=== PATIENT | female | born 1935 | race Caucasian/White ===

== ENCOUNTER 2017-12-09 10:48 | Inpatient (IN) | payer OTHER ==
[2017-12-09 10:55] VITALS: BMI 23.6
[2017-12-09] MEDS ORDERED: SODIUM CHLORIDE 1,000 ML IV ONE (10:59)
[2017-12-09] MEDS ORDERED: VANCOMYCIN 1,000 MG in DEXTROSE 5%-WATER - 250 ML IVPB ONE (11:19)
[2017-12-09] MEDS ORDERED: ALBUTEROL SO4 2.5/IPRATROPIUM 0.5 INH SOL 3 ML VIAL.NEB. NEB ONE ×2 (11:19→11:42)
--- NOTE | 2017-12-09 11:29 | PDOC ---
History of Present Illness - General History Source: Patient, Significant Other Exam Limitations: No Limitations - History of Present Illness Initial Comments: 12/09/17 11:34 The patient is a 82 year old female, with a significant past medical history of lung cancer (in remission for 1 year, s/p chemotherapy, resection), COPD ( oxygen dependent 4 LPM at home), hypertension, hyperlipidemia, hypothyroidism, who presents to the emergency department with, approx. 2 days of productive cough with yellow sputum and measured fever (102 F). As per the patients , the patient began having a productive cough on Saturday and a measured temperature of 102 F. He reports he took the patient to see her PCP Dr. Murguia earlier today who advised the patient to come to the ED for evaluation. She reports her last hospitalization was approx. one year ago for pneumonia. She states she did receive her flu shot this year. She denies recent headache or dizziness. She denies recent nausea, vomit, diarrhea or constipation. She denies recent dysuria, frequency, urgency or hematuria. She denies recent chest pain. Allergies: levofloxacin, penicillins Primary Care Physician: Dr. Murguia Oncology: Dr. Frias Business Office Coordinator: Dr. Curry <Suhail lBoom - Last Filed: 12/09/17 11:42> <Nixon Hall - Last Filed: 12/09/17 13:27> - General Chief Complaint: Shortness of Breath Stated Complaint: PCP SENT FOR ADMIN Time Seen by Provider: 12/09/17 10:57 Past History <Suhail Bloom - Last Filed: 12/09/17 11:42> - Past Medical History Anemia: No Asthma: No Cancer: Yes (LUNG.) Cardiac Disorders: No CVA: No COPD: Yes CHF: No Dementia: No Diabetes: No GI Disorders: No Disorders: No HTN: No Hypercholesterolemia: No Liver Disease: No Seizures: No Thyroid Disease: Yes (HYPO) - Surgical History Abdominal Surgery: No Appendectomy: No Cardiac Surgery: No Cholecystectomy: No Lung Surgery: Yes (20% RT LUNG REMOVED.) Neurologic Surgery: No Orthopedic Surgery: Yes (rotator cuff left) - Immunization History Immunization Up to Date: Yes - Suicide/Smoking/Psychosocial Hx Smoking History: Former smoker Have you smoked in the past 12 months: No Number of Cigarettes Smoked Daily: 0 If you are a former smoker, when did you quit?: 35 YRS AGO Cigars Per Day: 0 Information on smoking cessation initiated: No Hx Alcohol Use: No Drug/Substance Use Hx: No Substance Use Type: None Hx Substance Use Treatment: No <Nixon Hall - Last Filed: 12/09/17 13:27> - Past Medical History Allergies/Adverse Reactions: Allergies Allergy/AdvReac Type Severity Reaction Status Date / Time levofloxacin [From Levaquin] Allergy Mild Itching Verified 12/09/17 10:50 Penicillins Allergy Mild Hives Verified 12/09/17 10:50 Home Medications: Ambulatory Orders Levothyroxine [Synthroid -] 125 mcg PO DAILY 10/25/15 Acetaminophen [Tylenol .Regular Strength -] 650 mg PO Q6H PRN #0 tablet Albuterol 0.083% Nebulizer Yaima [Ventolin 0.083% Nebulizer Soln -] 1 amp NEB Q4H PRN #0 amp 07/06/16 Cholecalciferol (Vitamin D3) [Vitamin D3 -] 50,000 unit PO DAILY 12/09/17 Diazepam 2 mg PO TID PRN 12/09/17 Fluticasone/Salmeterol [Advair Hfa 115-21 Mcg Inhaler] 1 inh PO BID 12/09/17 Review of Systems - Review of Systems Constitutional: Yes: Chills, Fever Respiratory: Yes: Cough, Shortness of Breath Cardiac (ROS): No: Chest Pain ABD/GI: No: Diarrhea, Vomiting All Other Systems: Reviewed and Negative <Nixon Hall - Last Filed: 12/09/17 13:27> *Physical Exam - Vital Signs Last Vital Signs Temp Pulse Resp BP Pulse Ox 86 28 H 93/46 96 12/09/17 10:52 12/09/17 10:52 12/09/17 10:52 12/09/17 10:52 - Physical Exam Comments: 12/09/17 11:39 GENERAL: Well appearing. The patient is awake, alert, and fully oriented, in no acute distress. HEAD: Normal with no signs of trauma. EYES: Pupils equal, round and reactive to light, extraocular movements intact, sclera anicteric, conjunctiva clear with no pallor. ENT: Ears normal, nares patent, oropharynx clear without exudates. Moist mucous membranes. NECK: Normal range of motion, supple without lymphadenopathy, JVD, or masses. LUNGS: +Decreased breath sounds right side. +Difficult to auscultate right lung field. Good air entry. No clear wheezes. Patient is able to speak in full sentences. HEART: Regular rate and rhythm, normal S1 and S2 without murmur or rub. ABDOMEN: Soft/nontender/nondistended. BS wnl. No guarding or rebound. No palpable masses. No hepatosplenomegaly. EXTREMITIES: Normal range of motion, no edema. No clubbing or cyanosis. No cords, erythema, or tenderness. NEUROLOGICAL: Cranial nerves II through XII grossly intact. Normal speech. PSYCH: Normal mood, normal affect. SKIN: Warm, Dry, normal turgor, no rashes or lesions noted. <Suhail Bloom - Last Filed: 12/09/17 11:42> - Vital Signs Last Vital Signs Temp Pulse Resp BP Pulse Ox 86 28 H 93/46 96 12/09/17 10:52 12/09/17 10:52 12/09/17 10:52 12/09/17 10:52 <Nixon Hall - Last Filed: 12/09/17 13:27> Heart Score/ECG Review #1 ECG reviewed & interpreted by me at: 11:18 General ECG Interpretation: Sinus Rhythm (? ectopic atrial focus with PAC), Normal Rate (79), Normal Intervals (QTC 449), No acute ischemic changes <Nixon Hall - Last Filed: 12/09/17 13:27> ED Treatment Course - LABORATORY CBC & Chemistry Diagram: 12/09/17 10:58 12/09/17 10:58 <Suhail Bloom - Last Filed: 12/09/17 11:42> - LABORATORY CBC & Chemistry Diagram: 12/09/17 10:58 12/09/17 10:58 - RADIOLOGY Radiology Studies Ordered: Category Date Time Status CHEST X-RAY PORTABLE* [RAD] Stat Radiology 12/09/17 10:58 Ordered <Nixon Hall - Last Filed: 12/09/17 13:27> Medical Decision Making - Critical Care Time Total Critical Care Time (minutes): 30 Critical Care Statement: The care of this patient involved high complexity decision making to prevent further life threatening deterioration of the patient 's condition and/or to evaluate & treat vital organ system(s) failure or risk of failure. - Medical Decision Making 12/09/17 11:25 A portion of this note was documented by scribe services under my direction. I have reviewed the details of the note, within reason, and agree with the documentation with the following case summary and management plan written by me. 82-year-old female with history of lung CA that is post resection/chemotherapy, now in remission 1 year, COPD on 4 L home oxygen presents from Dr. lacho Hemphill's office with 2 days of worsening cough productive of yellow sputum, and fever of 102. Tachypnea, O2 sat at baseline on 3 L Decreased breath sounds on the right, otherwise good air entry Generally well-appearing and speaking full sentences 82-year-old female with fever/cough, history of COPD and lung CA. Presentation suspicious for pneumonia, possible influenza, possible superimposed COPD exacerbation. Sepsis protocol initiated Supplemental oxygen, DuoNeb's IV fluids, IV antibiotics Admission, Dr. Curry, her milk delivery driver, consulted. 12/09/17 12:45 wbc 10.6, Cr 1.2, lactate 1.7, trop negative. feels slightly better after nebs, received abx. CXR pending, will proceed with admission to Dr. Murguia. 12/09/17 13:[address] curry at bedside, will add steroids and proceed with admission. <Nixon Hall - Last Filed: 12/09/17 13:27> *DC/Admit/Observation/Transfer - Attestations Scribe Attestion: 12/09/17 11:39 Documentation prepared by Suhail Bloom, acting as medical imaging technician for Nixon Hall MD. <Suhail Bloom - Last Filed: 12/09/17 11:42> - Discharge Dispostion Admit: Yes <Nixon Hall - Last Filed: 12/09/17 13:27> Diagnosis at time of Disposition: COPD (chronic obstructive pulmonary disease) Qualifiers: COPD type: COPD with acute lower respiratory infection Qualified Code(s): J44.0 - Chronic obstructive pulmonary disease with acute lower respiratory infection Fever Qualifiers: Fever type: unspecified Qualified Code(s): R50.9 - Fever, unspecified - Discharge Dispostion Condition at time of disposition: Fair
[2017-12-09] MEDS: AZTREONAM 2 GM in DEXTROSE 5%-WATER - 50 ML IVPB ONE ×2 (11:40→12:01)
[2017-12-09] MEDS ORDERED: VANCOMYCIN 1 GRAM (PRE-DOCKED) 1,000 MG/250 ML BAG IVPB ONE (11:42)
[2017-12-09] MEDS ORDERED: AZTREONAM 2 GM in DEXTROSE 5%-WATER - 100 ML IVPB ONE (11:45)
[2017-12-09 11:49] LABS: BASO % 0.4 % (0-2.0); EOS % 1.1 % (0-4.5); HEMOGLOBIN 12.1 GM/dL (10.7-15.3); LYMPH % 14.4 % (8-40); MCH 28.2 pg (25.7-33.7); MCHC 32.7 g/dl (32.0-36.0); MEAN CELL VOLUME 86.2 fl (80-96); MEAN PLT VOLUME 7.9 fl (7.5-11.1); MONO % 9.1 % (3.8-10.2); PLATELET COUNT 223 K/MM3 (134-434); RBC 4.29 M/mm3 (3.60-5.2); RDW 15.2 % (11.6-15.6); WHITE BLOOD COUNT 10.6 K/mm3 (4.0-10.0)
[2017-12-09 11:50] LABS: VENOUS PC02 48.2 mmHg (38-52); VENOUS PH 7.35 (7.32-7.42)
[2017-12-09 11:51] LABS: VENOUS PO2 36.4 mmHg (28-48)
[2017-12-09 12:10] LABS: ALBUMIN 3.7 g/dl (3.4-5.0); ANION GAP 14 (8-16); BILIRUBIN,TOTAL 0.3 mg/dL (0.2-1.0); BLOOD UREA NITROGEN 31 mg/dL (7-18); CALCIUM 9.5 mg/dL (8.5-10.1); CHLORIDE 102 mmol/L (98-107); CO2 24 mmol/L (21-32); CREATININE 1.2 mg/dL (0.55-1.02); GLUCOSE,RANDOM 99 mg/dL (74-106); POTASSIUM 4.1 mmol/L (3.5-5.1); SGOT/AST 14 U/L (15-37); SGPT/ALT 19 U/L (12-78); SODIUM 140 mmol/L (136-145); TOT PROT 7.8 g/dl (6.4-8.2)
[2017-12-09 12:13] LABS: ALK PHOS 106 U/L (45-117)
[2017-12-09] MEDS ORDERED: methylPREDNISolone NA SUCC 125 MG/2 ML VIAL IVPB ONE (13:27)
--- NOTE | 2017-12-09 13:35 | PN ---
Progress Note (short form) - Note Progress Note: PULMONARY CONSULTATION DICTATED 12/09/17 IMP FEVER ? INFLUENZA,? PNEUMONIA COPD EXACERBATION CHRONIC HYPOXEMIC RESPIRATORY FAILURE H/O LUNG CA S/P RESECTION,CHEMO HTN HLD HYPOTHYROID TALIB PLAN IV ABX INHALED BRONCHODILATORS SHORT COURSE OF STEROIDS O2 CULTURES F/U CHEST X-RAYS MONITOR LYTES,RENAL FUNCTION DR MCGUIRE Problem List - Problems (1) COPD (chronic obstructive pulmonary disease) Code(s): J44.9 - CHRONIC OBSTRUCTIVE PULMONARY DISEASE, UNSPECIFIED Qualifiers: COPD type: COPD with acute lower respiratory infection Qualified Code(s): J44.0 - Chronic obstructive pulmonary disease with acute lower respiratory infection (2) Fever Code(s): R50.9 - FEVER, UNSPECIFIED Qualifiers: Fever type: unspecified Qualified Code(s): R50.9 - Fever, unspecified (3) COPD exacerbation Code(s): J44.1 - CHRONIC OBSTRUCTIVE PULMONARY DISEASE W (ACUTE) EXACERBATION (4) Lung cancer Code(s): C34.90 - MALIGNANT NEOPLASM OF UNSP PART OF UNSP BRONCHUS OR LUNG (5) Acute kidney injury Code(s): N17.9 - ACUTE KIDNEY FAILURE, UNSPECIFIED (6) Chronic hypoxemic respiratory failure Code(s): J96.11 - CHRONIC RESPIRATORY FAILURE WITH HYPOXIA
[2017-12-09 14:31] LABS: INR 1.09 (0.82-1.09); PROTHROMBIN TIME (PATIENT) 12.3 SEC (9.98-11.88)
[2017-12-09 14:34] LABS: ACTIVATED PTT 28.7 SECONDS (26.9-34.4)
[2017-12-09] MEDS ORDERED: ACETAMINOPHEN 325 MG TABLET (FP) PO PRN ×2 (17:12→17:21)
[2017-12-09] MEDS ORDERED: ALBUTEROL SO4 2.5/IPRATROPIUM 0.5 INH SOL 3 ML VIAL.NEB. NEB PRN (17:12)
[2017-12-09] MEDS ORDERED: diazePAM 2 MG TABLET PO PRN (17:12)
--- NOTE | 2017-12-09 19:14 | CONS ---
PULMONARY CONSULTATION DATE OF CONSULTATION: 12/09/2017 REFERRING PHYSICIAN: Axel Murguia MD HISTORY OF PRESENT ILLNESS: The patient is an 82-year-old white female known to me in previous hospitalization with past medical history of advanced COPD; chronic hypoxemic respiratory failure maintained on O2 of 4 L; history of lung CA status post resection, status post chemotherapy, currently in remission for approximately 1 year; hyperlipidemia; hypothyroidism; hypertension; admitted to [facility] with complaint of 2-day history of increasing shortness of breath, productive cough of yellow sputum, and fever to 102. Patient denied any complaints of chest pain, nausea, vomiting, or diaphoresis. According to the patient and the , patient started developing the symptoms 2 days ago, but she refused to go to the emergency room. Past couple of days, started with increasing shortness of breath, dyspnea with exertion. At which time, she went to Dr. Murguia and advised to go to the emergency room. She denies hemoptysis, denies any chest pains or palpitations, denies any recent travel. There is no history of occupational exposure to chemicals or fumes. She has a history of smoking, quit greater than 30 years ago. PAST MEDICAL HISTORY: Again includes lung CA status post resection, status post chemotherapy; COPD, advanced, with chronic hypoxemic respiratory failure on 4 L nasal cannula; hypertension; hyperlipidemia; hypothyroidism. REVIEW OF SYSTEMS: Positive shortness of breath. Positive cough. No chest pain. No palpitations. Positive fever. No hemoptysis. No abdominal pain. CURRENT MEDICATIONS: Include Solu-Medrol. PHYSICAL EXAMINATION: General: The patient is an elderly white female, well developed, well nourished, awake, alert, mildly dyspneic but in no acute respiratory distress. Vital Signs: She is currently afebrile. Blood pressure 144/96, respiratory rate is 16, O2 saturation is 95% on 3 L. HEENT: Normocephalic, atraumatic. Neck: Supple. Heart: Regular. S1, S2. Chest: A few scattered bilateral wheezes. Abdomen: Soft. Bowel sounds are positive. Extremities: No signs of edema. LABORATORY DATA: WBC is 10.6, hemoglobin 12.1, hematocrit 37, platelet count of 223,000. INR is 1.12. Venous blood gas showed pH of 7.35, pCO2 of 48, a pO2 of 36, a bicarbonate of 26. Chemistries: BUN is 31, creatinine 1.2. Chest x-ray reveals no acute infiltrates and/or effusions. IMPRESSION: 1. Acute exacerbation of chronic obstructive pulmonary disease. 2. Fever and chills, possible viral, possible influenza, possible bacterial pneumonia although not evident on chest x-ray. 3. History of lung cancer status post resection, status post chemotherapy. 4. Hypertension. 5. Hyperlipidemia. PLAN: Inhaled bronchodilators, IV antibiotics, supplemental O2, a short course of steroids. Obtain cultures, sputum C&S, blood C&S. Liliana [id number]
--- NOTE | 2017-12-09 19:55 | CONSULT ---
Consult - text type - Consultation Consultation Note: The patient is a 82 year old female, with a significant past medical history of lung cancer (in remission for 1 year, s/p chemotherapy, resection), COPD ( oxygen dependent 4 LPM at home), hypertension, hyperlipidemia, hypothyroidism, who presents to the emergency department with, approx. 2 days of productive cough with yellow sputum and measured fever (102 F). As per the patients , the patient began having a productive cough on Saturday and a measured temperature of 102 F. He reports he took the patient to see her PCP Dr. Murguia earlier today who advised the patient to come to the ED for evaluation. She denies recent headache or dizziness. She denies recent nausea, vomit, diarrhea or constipation. She denies recent dysuria, frequency, urgency or hematuria. She denies recent chest pain. Allergies: levofloxacin, penicillins - Past Medical History Cancer: Yes (LUNG.) COPD: Yes Thyroid Disease: Yes (HYPO) - Surgical History Orthopedic Surgery: Yes (rotator cuff left) - Suicide/Smoking/Psychosocial Hx Smoking History: Former smoker Allergies/Adverse Reactions: Allergies Allergy/AdvReac Type Severity Reaction Status Date / Time levofloxacin [From Levaquin] Allergy Mild Itching Verified 12/09/17 10:50 Penicillins Allergy Mild Hives Verified 12/09/17 10:50 Home Medications: Ambulatory Orders Levothyroxine [Synthroid -] 125 mcg PO DAILY 10/25/15 Acetaminophen [Tylenol .Regular Strength -] 650 mg PO Q6H PRN #0 tablet Albuterol 0.083% Nebulizer Yaima [Ventolin 0.083% Nebulizer Soln -] 1 amp NEB Q4H PRN #0 amp 07/06/16 Cholecalciferol (Vitamin D3) [Vitamin D3 -] 50,000 unit PO DAILY 12/09/17 Diazepam 2 mg PO TID PRN 12/09/17 Fluticasone/Salmeterol [Advair Hfa 115-21 Mcg Inhaler] 1 inh PO BID 12/09/17 *Physical Exam - Vital Signs Last Vital Signs Temp Pulse Resp BP Pulse Ox 86 28 H 93/46 96 12/09/17 10:52 12/09/17 10:52 12/09/17 10:52 12/09/17 10:52 Cor: RSR, No murmurs, No gallops Lungs: Clear to P&A Abd: Soft, Normal bowel sounds, No organomegaly Ext:No significant edema Abnormal Lab Results 12/09/17 12/09/17 12/09/17 10:58 10:58 10:58 WBC 10.6 H PT with INR 12.30 H Mixed VBG HCO3 26.0 H BUN Creatinine AST 12/09/17 10:58 WBC PT with INR Mixed VBG HCO3 BUN 31 H Creatinine 1.2 H AST 14 L A/P 82-year-old female with history of lung CA that is post resection/chemotherapy, now in remission 1 year, COPD on 4 L home oxygen presents from PMDs office with 2 days of worsening cough productive of yellow sputum, and fever of 102. s/p vanco/aztreonam/medrol f/u ID /pulmonary consult f/u cultures robitussin prn will arrange port flush/cultures
[2017-12-09] MEDS: FLUTICASONE/SALMETEROL 100 MCG/50 MCG DISKUS IH SCH (22:20)
[2017-12-09] MEDS: guaiFENesin 200 MG/10 ML 10 ML UNIT-DOSE CUPS PO PRN (22:22)
[2017-12-09] MEDS: INSULIN SLIDING SCALE (NOVOLOG) 1 VIAL SQ SCH (22:22)
[2017-12-09] MEDS: NYSTATIN/TRIAMCINOLONE TOPICAL CREAM 15 GM TUBE TP SCH (22:22)
[2017-12-10] MEDS: INSULIN SLIDING SCALE (NOVOLOG) 1 VIAL SQ SCH ×4 (06:04→22:09)
[2017-12-10] MEDS: LEVOTHYROXINE NA 125 MCG TABLET (FP) PO SCH (06:04)
[2017-12-10 08:45] LABS: ALBUMIN 3.2 g/dl (3.4-5.0); ANION GAP 12 (8-16); BLOOD UREA NITROGEN 32 mg/dL (7-18); CALCIUM 9.2 mg/dL (8.5-10.1); CHLORIDE 105 mmol/L (98-107); CO2 24 mmol/L (21-32); GLUCOSE,RANDOM 115 mg/dL (74-106); POTASSIUM 4.2 mmol/L (3.5-5.1); SODIUM 141 mmol/L (136-145)
[2017-12-10 08:48] LABS: ALK PHOS 96 U/L (45-117); BILIRUBIN,TOTAL 0.2 mg/dL (0.2-1.0); CREATININE 0.7 mg/dL (0.55-1.02); SGOT/AST 15 U/L (15-37); SGPT/ALT 13 U/L (12-78); TOT PROT 7.1 g/dl (6.4-8.2)
[2017-12-10 08:52] LABS: HEMOGLOBIN 10.8 GM/dL (10.7-15.3); MCH 28.1 pg (25.7-33.7); MCHC 32.6 g/dl (32.0-36.0); MEAN CELL VOLUME 86.3 fl (80-96); MEAN PLT VOLUME 8.4 fl (7.5-11.1); PLATELET COUNT 237 K/MM3 (134-434); RBC 3.83 M/mm3 (3.60-5.2); WHITE BLOOD COUNT 6.2 K/mm3 (4.0-10.0)
--- NOTE | 2017-12-10 10:42 | HP ---
Admitting History and Physical - Primary Care Physician PCP: Axel Murguia - Admission Chief Complaint: sent in by PMD for cough History of Present Illness: The patient is a 82 year old female, with a significant past medical history of lung cancer (in remission for 1 year, s/p chemotherapy, resection), COPD ( oxygen dependent 4 LPM at home), hypertension, hyperlipidemia, hypothyroidism, who presents to the emergency department with, approx. 2 days of productive cough with yellow sputum and measured fever (102 F). As per the patients , the patient began having a productive cough on Saturday and a measured temperature of 102 F. He reports he took the patient to see her PCP Dr. Murguia earlier today who advised the patient to come to the ED for evaluation. She reports her last hospitalization was approx. one year ago for pneumonia. She states she did receive her flu shot this year. She denies recent headache or dizziness. She denies recent nausea, vomit, diarrhea or constipation. She denies recent dysuria, frequency, urgency or hematuria. She denies recent chest pain. 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[place]) Cardiovascular: Yes: HTN Pulmonary: Yes: Cancer (adenocarcinoma s/p RT and chemo), COPD (home oxygen) Gastrointestinal: Yes: Diverticulitis (02/2015), Diverticulosis Endocrine: Yes: Hyperthyroidism - Past Surgical History Past Surgical History: Yes: Hysterectomy - Smoking History Smoking history: Former smoker Have you smoked in the past 12 months: No Aproximately how many cigarettes per day: 0 If you are a former smoker, when did you quit?: 35 YRS AGO - Alcohol/Substance Use Hx Alcohol Use: No - Social History ADL: Independent History of Recent Travel: No Home Medications - Allergies Allergies/Adverse Reactions: Allergies Allergy/AdvReac Type Severity Reaction Status Date / Time levofloxacin [From Levaquin] Allergy Mild Itching Verified 12/09/17 10:50 Penicillins Allergy Mild Hives Verified 12/09/17 10:50 - Home Medications Home Medications: Ambulatory Orders Levothyroxine [Synthroid -] 125 mcg PO DAILY 10/25/15 Acetaminophen [Tylenol .Regular Strength -] 650 mg PO Q6H PRN #0 tablet Albuterol 0.083% Nebulizer Yaima [Ventolin 0.083% Nebulizer Soln -] 1 amp NEB Q4H PRN #0 amp 07/06/16 Cholecalciferol (Vitamin D3) [Vitamin D3 -] 50,000 unit PO DAILY 12/09/17 Diazepam 2 mg PO TID PRN 12/09/17 Fluticasone/Salmeterol [Advair Hfa 115-21 Mcg Inhaler] 1 inh PO BID 12/09/17 Review of Systems - Review of Systems Respiratory: reports: Cough, Other Physical Examination Vital Signs: Vital Signs Temperature 97.9 F 12/10/17 06:00 Pulse Rate 64 12/10/17 06:00 Respiratory Rate 20 12/10/17 06:00 Blood Pressure 128/57 12/10/17 06:00 O2 Sat by Pulse Oximetry (%) 97 12/09/17 21:00 today patient feeling much better says her breathing much improved still has cough but is getting better Constitutional: Yes: Calm Cardiovascular: Yes: Regular Rate and Rhythm, S1, S2 Respiratory: Yes: On Nasal O2, Rhonchi Gastrointestinal: Yes: Normal Bowel Sounds, Soft Edema: No Neurological: Yes: Alert, Oriented Labs: CBC, BMP 12/10/17 06:30 12/10/17 06:30 Imaging - Results Chest X-ray: Report Reviewed, Image Reviewed (no infiltrate) Problem List - Problems (1) COPD (chronic obstructive pulmonary disease) Assessment/Plan: iv solumedrol and nebulizer oxygen Code(s): J44.9 - CHRONIC OBSTRUCTIVE PULMONARY DISEASE, UNSPECIFIED Qualifiers: COPD type: COPD with acute lower respiratory infection Qualified Code(s): J44.0 - Chronic obstructive pulmonary disease with acute lower respiratory infection (2) Fever Assessment/Plan: possible bronchitis awaiting influenza result got iv aztreonam and vancomycin allergy to levaquin and pcn ID consult wbc count now normal Code(s): R50.9 - FEVER, UNSPECIFIED Qualifiers: Fever type: unspecified Qualified Code(s): R50.9 - Fever, unspecified (3) Lung cancer Assessment/Plan: oncology consult noted Code(s): C34.90 - MALIGNANT NEOPLASM OF UNSP PART OF UNSP BRONCHUS OR LUNG (4) Hypothyroid Assessment/Plan: on synthroid check tsh Code(s): E03.9 - HYPOTHYROIDISM, UNSPECIFIED
--- NOTE | 2017-12-10 11:35 | PN ---
Progress Note (short form) - Note Progress Note: Still with wheezing, dry cough, and ESPARZA. No significant from yesterday. No hemoptysis. Intake & Output 12/07/17 12/08/17 12/09/17 12/10/17 23:59 23:59 23:59 23:59 Intake Total 200 Balance 200 Weight 133 lb Last Vital Signs Temp Pulse Resp BP Pulse Ox 97.9 F 64 20 128/57 97 12/10/17 06:00 12/10/17 06:00 12/10/17 06:00 12/10/17 06:00 12/09/17 21:00 Active Medications Acetaminophen (Tylenol -) 650 mg PO Q6H PRN PRN Reason: PAIN Acetaminophen (Tylenol -) 650 mg PO Q6H PRN PRN Reason: FEVER Albuterol/Ipratropium (Duoneb -) 1 amp NEB Q6H PRN PRN Reason: SHORTNESS OF BREATH Diazepam (Valium -) 2 mg PO Q8H PRN PRN Reason: ANXIETY Guaifenesin (Robitussin -) 10 ml PO Q4H PRN PRN Reason: COUGH Last Admin: 12/09/17 22:22 Dose: 10 ml Insulin Aspart (Novolog Vial Sliding Scale -) 1 vial SQ ACHS [facility] PRN Reason: Protocol Last Admin: 12/10/17 06:04 Dose: Not Given Lactobacillus Acidophilus (Bacid -) 1 tab PO DAILY [facility] Levothyroxine Sodium (Synthroid -) 125 mcg PO DAILY@0700 [facility] Last Admin: 12/10/17 06:04 Dose: 125 mcg Methylprednisolone Sodium Succinate (Solu-Medrol -) 40 mg IVPUSH Q8H-IV [facility] Nystatin/Triamcinolone Acetonide (Mycolog Ii Cream -) 1 applic TP BID [facility] Last Admin: 12/09/17 22:22 Dose: Not Given Fluticasone/Salmeterol (Advair 100mcg/50mcg -) 1 puff IH BID [facility] Last Admin: 12/09/17 22:20 Dose: 1 puff Constitutional: Yes: Mildly tachypneic Cardiovascular: Yes: Regular Rate and Rhythm, S1, S2 Respiratory: Yes: On Nasal O2, Bilateral expiratory wheezing Gastrointestinal: Yes: Normal Bowel Sounds, Soft Edema: No Neurological: Yes: Alert, Oriented Labs: Laboratory Results - last 24 hr 12/09/17 12/09/17 12/09/17 10:58 10:58 10:58 WBC 10.6 H RBC 4.29 D Hgb 12.1 D Hct 37.0 D MCV 86.2 MCH 28.2 MCHC 32.7 RDW 15.2 Plt Count 223 D MPV 7.9 Neutrophils % 75.0 D Lymphocytes % 14.4 D Monocytes % 9.1 Eosinophils % 1.1 Basophils % 0.4 D Platelet Comment PT with INR 12.30 H INR 1.09 PTT (Actin FS) 28.7 VBG pH 7.35 POC VBG pCO2 48.2 D POC VBG pO2 36.4 Mixed VBG HCO3 26.0 H Sodium Potassium Chloride Carbon Dioxide Anion Gap BUN Creatinine Creat Clearance w eGFR POC Glucometer Random Glucose Hemoglobin A1c % Lactic Acid Calcium Total Bilirubin AST ALT Alkaline Phosphatase Creatine Kinase Troponin I Total Protein Albumin TSH Blood Type Antibody Screen 12/09/17 12/09/17 12/09/17 10:58 10:58 10:58 WBC RBC Hgb Hct MCV MCH MCHC RDW Plt Count MPV Neutrophils % Lymphocytes % Monocytes % Eosinophils % Basophils % Platelet Comment PT with INR INR PTT (Actin FS) VBG pH POC VBG pCO2 POC VBG pO2 Mixed VBG HCO3 Sodium 140 Potassium 4.1 Chloride 102 Carbon Dioxide 24 Anion Gap 14 BUN 31 H Creatinine 1.2 H Creat Clearance w eGFR 43.23 POC Glucometer Random Glucose 99 Hemoglobin A1c % Lactic Acid 1.7 Calcium 9.5 Total Bilirubin 0.3 AST 14 L ALT 19 Alkaline Phosphatase 106 Creatine Kinase 86 Troponin I < 0.02 Total Protein 7.8 Albumin 3.7 TSH Blood Type B POSITIVE Antibody Screen Negative 12/09/17 12/09/17 12/09/17 18:03 18:24 22:19 WBC RBC Hgb Hct MCV MCH MCHC RDW Plt Count MPV Neutrophils % Lymphocytes % Monocytes % Eosinophils % Basophils % Platelet Comment PT with INR INR PTT (Actin FS) VBG pH POC VBG pCO2 POC VBG pO2 Mixed VBG HCO3 Sodium Potassium Chloride Carbon Dioxide Anion Gap BUN Creatinine Creat Clearance w eGFR POC Glucometer 137 243 152 Random Glucose Hemoglobin A1c % Lactic Acid Calcium Total Bilirubin AST ALT Alkaline Phosphatase Creatine Kinase Troponin I Total Protein Albumin TSH Blood Type Antibody Screen 12/10/17 12/10/17 12/10/17 06:03 06:30 06:30 WBC 6.2 D RBC 3.83 Hgb 10.8 D Hct 33.0 MCV 86.3 MCH 28.1 MCHC 32.6 RDW 15.0 Plt Count 237 MPV 8.4 Neutrophils % Lymphocytes % Monocytes % Eosinophils % Basophils % Platelet Comment No clumping noted PT with INR INR PTT (Actin FS) VBG pH POC VBG pCO2 POC VBG pO2 Mixed VBG HCO3 Sodium 141 Potassium 4.2 Chloride 105 Carbon Dioxide 24 Anion Gap 12 BUN 32 H Creatinine 0.7 Creat Clearance w eGFR > 60 POC Glucometer 121 Random Glucose 115 H Hemoglobin A1c % Lactic Acid Calcium 9.2 Total Bilirubin 0.2 D AST 15 ALT 13 Alkaline Phosphatase 96 Creatine Kinase Troponin I Total Protein 7.1 Albumin 3.2 L TSH Blood Type Antibody Screen 12/10/1718 12/10/17 06:30 06:30 06:30 WBC RBC Hgb Hct MCV MCH MCHC RDW Plt Count MPV Neutrophils % Lymphocytes % Monocytes % Eosinophils % Basophils % Platelet Comment PT with INR INR PTT (Actin FS) VBG pH POC VBG pCO2 POC VBG pO2 Mixed VBG HCO3 Sodium Potassium Chloride Carbon Dioxide Anion Gap BUN Creatinine Creat Clearance w eGFR POC Glucometer Random Glucose Hemoglobin A1c % 5.4 Lactic Acid 0.8 Calcium Total Bilirubin AST ALT Alkaline Phosphatase Creatine Kinase Troponin I Total Protein Albumin TSH Cancelled Blood Type Antibody Screen Problem List - Problems (1) COPD (chronic obstructive pulmonary disease) Code(s): J44.9 - CHRONIC OBSTRUCTIVE PULMONARY DISEASE, UNSPECIFIED Qualifiers: COPD type: COPD with acute lower respiratory infection Qualified Code(s): J44.0 - Chronic obstructive pulmonary disease with acute lower respiratory infection (2) Fever Code(s): R50.9 - FEVER, UNSPECIFIED Qualifiers: Fever type: unspecified Qualified Code(s): R50.9 - Fever, unspecified (3) COPD exacerbation Code(s): J44.1 - CHRONIC OBSTRUCTIVE PULMONARY DISEASE W (ACUTE) EXACERBATION (4) Lung cancer Code(s): C34.90 - MALIGNANT NEOPLASM OF UNSP PART OF UNSP BRONCHUS OR LUNG (5) Acute kidney injury Code(s): N17.9 - ACUTE KIDNEY FAILURE, UNSPECIFIED (6) Chronic hypoxemic respiratory failure Code(s): J96.11 - CHRONIC RESPIRATORY FAILURE WITH HYPOXIA IMP FEVER ? VIRAL ILLNESS COPD EXACERBATION CHRONIC HYPOXEMIC RESPIRATORY FAILURE H/O LUNG CA S/P RESECTION,CHEMO HTN HLD HYPOTHYROID TALIB PLAN IV ABX INHALED BRONCHODILATORS SHORT COURSE OF STEROIDS O2 CULTURES NO SMOKING DR GIANG
--- NOTE | 2017-12-10 11:37 | EKG ---
Test Reason : Blood Pressure : / mmHG Vent. Rate : 079 BPM Atrial Rate : 079 BPM P-R Int : 138 ms QRS Dur : 086 ms QT Int : 392 ms P-R-T Axes : 061 054 042 degrees QTc Int : 449 ms NORMAL SINUS RHYTHM WITH SINUS ARRHYTHMIA POSSIBLE ANTERIOR INFARCT , AGE UNDETERMINED ABNORMAL ECG WHEN COMPARED WITH ECG OF 03-JUL-2016 21:48, BORDERLINE CRITERIA FOR ANTERIOR INFARCT ARE NOW PRESENT Confirmed by MD Giovanni, Shyam ([id number]) on 12/10/2017 11:37:24 AM Referred By: Confirmed By:Shyam Davila MD
[2017-12-10] MEDS ORDERED: ALBUTEROL SO4 2.5/IPRATROPIUM 0.5 INH SOL 3 ML VIAL.NEB. NEB PRN (11:41)
[2017-12-10] MEDS ORDERED: PT OWN MED DRAWER 7, Y5N ONE ×2 (11:50→23:19)
[2017-12-10] MEDS: LACTOBACILLUS ACIDOPHILUS 1 EACH TAB (FP) PO SCH (11:55)
[2017-12-10] MEDS: NYSTATIN/TRIAMCINOLONE TOPICAL CREAM 15 GM TUBE TP SCH ×2 (11:56→22:10)
[2017-12-10] MEDS: FLUTICASONE/SALMETEROL 100 MCG/50 MCG DISKUS IH SCH ×2 (11:56→22:09)
[2017-12-10] MEDS ORDERED: ALBUTEROL SO4 2.5/IPRATROPIUM 0.5 INH SOL 3 ML VIAL.NEB. NEB SCH (12:00)
--- NOTE | 2017-12-10 15:48 | PN ---
Progress Note (short form) - Note Progress Note: ID Consult dictated Acute exacerbation COPD Probable viral URI ? influenza Hx lung ca PCN allergy + Urine c/s Pending sepsis workup, empiric vancomycin/ aztreonam / Tamiflu
[2017-12-10] MEDS ORDERED: AZTREONAM 1 GRAM SYRINGE 1 GM/10 ML DISP.SYRIN IVPUSH SCH (16:00)
--- NOTE | 2017-12-10 16:22 | CONS ---
INFECTIOUS DISEASE CONSULTATION DATE OF CONSULTATION: DATE OF DICTATION: 12/10/2017 REASON FOR CONSULTATION: The patient is an 82-year-old female with a history of COPD and lung cancer status post lung resection, chemotherapy, and radiation, in remission for the past 1 year, evaluated for possible pneumonia. HISTORY OF PRESENT ILLNESS: The patient lives at home with her . He reports that on or about December 07, she developed fever at home to 102, associated with cough productive of yellowish sputum. She became progressively worse. She was brought to the emergency room where she was admitted with an acute exacerbation of COPD. Chest x-ray was negative for acute infiltrate. She was empirically treated with vancomycin and Azactam for possible pneumonia. She has a history of PENICILLIN allergy. At the present time, she is awake and alert. However, she is very hard of hearing. She denied any focal complaint. She was noted to be congested and slightly dyspneic on nasal cannula at rest. She lives at home with her who has been well. No known influenza exposure. She did receive influenza vaccine this year. She has a history of COPD with long tobacco use history; however, stopped years ago. She also has a history of lung cancer. She underwent a partial resection of the right lung, followed by chemotherapy and radiation. She has been in remission for a year. PAST MEDICAL HISTORY: Positive for lung cancer, COPD, diverticulosis, hyperthyroidism, hyperlipidemia, hypertension. PAST SURGICAL HISTORY: Status post small-bowel obstruction, thyroidectomy, hysterectomy, rotator cuff surgery. ALLERGIES: PENICILLIN and FLUOROQUINOLONES. reports rash with QUINOLONES and a rash with PENICILLIN. Questionable history of tongue swelling. However, no clear history of anaphylaxis. MEDICATIONS: Include Solu-Medrol, Advair, Synthroid. SOCIAL HISTORY: As per HPI. Lives at home with her . Former smoker. No history of alcohol abuse or illicit drug use. SYSTEMS REVIEW: Neurologic: No loss of consciousness, seizure activity, focal weakness. Cardiac: Negative chest pain or palpitations. Respiratory: As per HPI. Gastrointestinal: Negative vomiting or diarrhea. Genitourinary: Negative for urinary tract infection. She denies dysuria or hematuria. LABORATORY DATA: White count 6.2, hematocrit 33.0, platelet count 237. BUN 32, creatinine 0.7. Chest x-ray: No focal infiltrate noted. Urinalysis: White cells 1. Urine culture growing a non-lactose digital marketer. PHYSICAL EXAMINATION: General: She is awake and alert. She is seated in bed. She is slightly dyspneic at rest, in no acute respiratory distress. Vital Signs: Temperature 97.9; blood pressure 132/57; pulse 83, regular; respirations 18 per minute. HEENT: Sclerae are anicteric. Heart: Sounds S1, S2. Lungs: Coarse rhonchi bilaterally. Decreased breath sounds at the bases. Abdomen: Soft. No tenderness elicited. No mass, rebound, or rigidity. Extremities: Edema 1+. IMPRESSION: 1. Acute exacerbation of chronic obstructive pulmonary disease. 2. Probable viral upper respiratory tract infection, possible influenza. 3. History of lung cancer, in remission. 4. PENICILLIN allergy. 5. Positive urine culture, possible urinary tract infection. RECOMMENDATIONS: Await cultures and influenza swab. Empiric antibiotic coverage in this patient with possible major PENICILLIN allergy with vancomycin and Azactam. We will continue Tamiflu pending influenza swab. Continue intravenous corticosteroids and inhaled bronchodilators. Case discussed with patient's present at the time of the examination. Thank you for the kind referral. KESHA MOSS M.D. [id number]
[2017-12-10] MEDS: ALBUTEROL SO4 0.083% IH SOL 2.5 MG/3 ML VIAL.NEB. NEB PRN (16:27)
[2017-12-10] MEDS: AZTREONAM 1 GRAM SYRINGE 1 GM/10 ML DISP.SYRIN IVPUSH SCH (17:55)
[2017-12-10] MEDS: methylPREDNISolone NA SUCC 40 MG/1 ML VIAL IVPUSH SCH (17:55)
[2017-12-10] MEDS: VANCOMYCIN 1,000 MG in DEXTROSE 5%-WATER - 250 ML IVPB SCH (17:55)
[2017-12-10] MEDS: OSELTAMIVIR PHOSPHATE 75 MG CAPSULE PO SCH (22:14)
[2017-12-10] MEDS: guaiFENesin 200 MG/10 ML 10 ML UNIT-DOSE CUPS PO PRN (22:38)
[2017-12-11] MEDS: methylPREDNISolone NA SUCC 40 MG/1 ML VIAL IVPUSH SCH ×3 (01:21→18:47)
[2017-12-11] MEDS: AZTREONAM 1 GRAM SYRINGE 1 GM/10 ML DISP.SYRIN IVPUSH SCH ×3 (01:22→19:12)
[2017-12-11] MEDS: VANCOMYCIN 1,000 MG in DEXTROSE 5%-WATER - 250 ML IVPB SCH ×2 (04:45→16:47)
[2017-12-11] MEDS: LEVOTHYROXINE NA 125 MCG TABLET (FP) PO SCH (06:20)
[2017-12-11] MEDS: INSULIN SLIDING SCALE (NOVOLOG) 1 VIAL SQ SCH ×3 (06:23→17:36)
[2017-12-11] MEDS: ALBUTEROL SO4 0.083% IH SOL 2.5 MG/3 ML VIAL.NEB. NEB PRN (08:05)
[2017-12-11] MEDS: LACTOBACILLUS ACIDOPHILUS 1 EACH TAB (FP) PO SCH (10:18)
[2017-12-11] MEDS: OSELTAMIVIR PHOSPHATE 75 MG CAPSULE PO SCH ×2 (10:19→21:20)
[2017-12-11] MEDS: FLUTICASONE/SALMETEROL 100 MCG/50 MCG DISKUS IH SCH ×2 (10:19→21:19)
[2017-12-11] MEDS: NYSTATIN/TRIAMCINOLONE TOPICAL CREAM 15 GM TUBE TP SCH ×2 (10:20→21:19)
[2017-12-11] MEDS ORDERED: PT OWN MED DRAWER 7, Y5N ONE ×2 (10:39→16:36)
--- NOTE | 2017-12-11 13:13 | PN ---
Progress Note, Physician Chief Complaint: Bronchitis, COPD exacerbation History of Present Illness: NAD, sitting at the edge of the bed, Cough and SOB improved uses nasal O 2 at home seen by pulmonary on IV abx, IV steroids - Current Medication List Current Medications: Active Medications Acetaminophen (Tylenol -) 650 mg PO Q6H PRN PRN Reason: PAIN Acetaminophen (Tylenol -) 650 mg PO Q6H PRN PRN Reason: FEVER Albuterol Sulfate (Ventolin 0.083% Nebulizer Soln -) 1 amp NEB Q4H PRN PRN Reason: SHORT OF BREATH/WHEEZING Last Admin: 12/11/17 08:05 Dose: 1 amp Diazepam (Valium -) 2 mg PO Q8H PRN PRN Reason: ANXIETY Guaifenesin (Robitussin -) 10 ml PO Q4H PRN PRN Reason: COUGH Last Admin: 12/10/17 22:38 Dose: 10 ml Vancomycin HCl 1,000 mg/ (Dextrose) 250 mls @ 166.667 mls/hr IVPB Q12H [facility] Last Admin: 12/11/17 04:45 Dose: 166.667 mls/hr Aztreonam (Azactam (Restricted To Id) -) 1 gm in 10 mls @ 100 mls/hr IVPUSH Q8H -IV [facility] PRN Reason: Protocol Last Admin: 12/11/17 10:20 Dose: 100 mls/hr Insulin Aspart (Novolog Vial Sliding Scale -) 1 vial SQ ACHS [facility] PRN Reason: Protocol Last Admin: 12/11/17 11:29 Dose: Not Given Lactobacillus Acidophilus (Bacid -) 1 tab PO DAILY [facility] Last Admin: 12/11/17 10:18 Dose: 1 tab Levothyroxine Sodium (Synthroid -) 125 mcg PO DAILY@0700 [facility] Last Admin: 12/11/17 06:20 Dose: 125 mcg Methylprednisolone Sodium Succinate (Solu-Medrol -) 40 mg IVPUSH Q8H-IV [facility] Last Admin: 12/11/17 10:24 Dose: 40 mg Nystatin/Triamcinolone Acetonide (Mycolog Ii Cream -) 1 applic TP BID [facility] Last Admin: 12/11/17 10:20 Dose: 1 applic Oseltamivir Phosphate (Tamiflu -) 75 mg PO BID [facility] Stop: 12/15/17 21:59 Last Admin: 12/11/17 10:19 Dose: 75 mg Fluticasone/Salmeterol (Advair 100mcg/50mcg -) 1 puff IH BID [facility] Last Admin: 12/11/17 10:19 Dose: 1 puff - Objective Vital Signs: Vital Signs Temperature 97.8 F 12/11/17 06:00 Pulse Rate 61 12/11/17 06:00 Respiratory Rate 20 12/11/17 06:00 Blood Pressure 130/61 12/11/17 06:00 O2 Sat by Pulse Oximetry (%) 98 12/10/17 21:00 Constitutional: Yes: Well Nourished, No Distress, Calm Cardiovascular: Yes: Regular Rate and Rhythm Respiratory: Yes: Regular Gastrointestinal: Yes: Normal Bowel Sounds, Soft Musculoskeletal: Yes: WNL Extremities: Yes: WNL Edema: No Peripheral Pulses WNL: Yes Neurological: Yes: Alert, Oriented Psychiatric: Yes: Alert, Oriented Labs: CBC, BMP 12/10/17 06:30 12/10/17 06:30 INR, PTT INR 1.09 (0.82-1.09) 12/09/17 10:58 Problem List - Problems (1) COPD (chronic obstructive pulmonary disease) Assessment/Plan: -pulmonary consult on board bronchodilators IV abx IV steroids nasal O2 Code(s): J44.9 - CHRONIC OBSTRUCTIVE PULMONARY DISEASE, UNSPECIFIED Qualifiers: COPD type: COPD with acute lower respiratory infection Qualified Code(s): J44.0 - Chronic obstructive pulmonary disease with acute lower respiratory infection (2) Chronic hypoxemic respiratory failure Code(s): J96.11 - CHRONIC RESPIRATORY FAILURE WITH HYPOXIA (3) Secondary hyperthyroidism Assessment/Plan: -drug induced -decrease levothyroxine to 100 mcg po daily -endocrinology consult Code(s): E05.90 - THYROTOXICOSIS, UNSP WITHOUT THYROTOXIC CRISIS OR STORM Assessment/Plan see problem list
--- NOTE | 2017-12-11 13:16 | PN ---
Progress Note, Physician History of Present Illness: pulmonary alert,feeling better,less dyspneic,less cough - Current Medication List Current Medications: Active Medications Acetaminophen (Tylenol -) 650 mg PO Q6H PRN PRN Reason: PAIN Acetaminophen (Tylenol -) 650 mg PO Q6H PRN PRN Reason: FEVER Albuterol Sulfate (Ventolin 0.083% Nebulizer Soln -) 1 amp NEB Q4H PRN PRN Reason: SHORT OF BREATH/WHEEZING Last Admin: 12/11/17 08:05 Dose: 1 amp Diazepam (Valium -) 2 mg PO Q8H PRN PRN Reason: ANXIETY Guaifenesin (Robitussin -) 10 ml PO Q4H PRN PRN Reason: COUGH Last Admin: 12/10/17 22:38 Dose: 10 ml Vancomycin HCl 1,000 mg/ (Dextrose) 250 mls @ 166.667 mls/hr IVPB Q12H [facility] Last Admin: 12/11/17 04:45 Dose: 166.667 mls/hr Aztreonam (Azactam (Restricted To Id) -) 1 gm in 10 mls @ 100 mls/hr IVPUSH Q8H -IV [facility] PRN Reason: Protocol Last Admin: 12/11/17 10:20 Dose: 100 mls/hr Insulin Aspart (Novolog Vial Sliding Scale -) 1 vial SQ ACHS [facility] PRN Reason: Protocol Last Admin: 12/11/17 11:29 Dose: Not Given Lactobacillus Acidophilus (Bacid -) 1 tab PO DAILY [facility] Last Admin: 12/11/17 10:18 Dose: 1 tab Levothyroxine Sodium (Synthroid -) 100 mcg PO DAILY@0700 [facility] Methylprednisolone Sodium Succinate (Solu-Medrol -) 40 mg IVPUSH Q8H-IV [facility] Last Admin: 12/11/17 10:24 Dose: 40 mg Nystatin/Triamcinolone Acetonide (Mycolog Ii Cream -) 1 applic TP BID [facility] Last Admin: 12/11/17 10:20 Dose: 1 applic Oseltamivir Phosphate (Tamiflu -) 75 mg PO BID [facility] Stop: 12/15/17 21:59 Last Admin: 12/11/17 10:19 Dose: 75 mg Fluticasone/Salmeterol (Advair 100mcg/50mcg -) 1 puff IH BID [facility] Last Admin: 12/11/17 10:19 Dose: 1 puff - Objective Vital Signs: Vital Signs Temperature 97.8 F 12/11/17 06:00 Pulse Rate 61 12/11/17 06:00 Respiratory Rate 20 12/11/17 06:00 Blood Pressure 130/61 12/11/17 06:00 O2 Sat by Pulse Oximetry (%) 98 12/10/17 21:00 Constitutional: Yes: Well Nourished, Calm Eyes: Yes: WNL HENT: Yes: WNL Neck: Yes: WNL Cardiovascular: Yes: Regular Rate and Rhythm, S1, S2 Respiratory: Yes: Diminished (zach wheezes), Wheezes Gastrointestinal: Yes: Normal Bowel Sounds, Soft Extremities: Yes: WNL Edema: No Labs: CBC, BMP Problem List - Problems (1) COPD (chronic obstructive pulmonary disease) Code(s): J44.9 - CHRONIC OBSTRUCTIVE PULMONARY DISEASE, UNSPECIFIED Qualifiers: Qualified Code(s): J44.0 - Chronic obstructive pulmonary disease with acute lower respiratory infection (2) Fever Code(s): R50.9 - FEVER, UNSPECIFIED Qualifiers: Qualified Code(s): R50.9 - Fever, unspecified (3) COPD exacerbation Code(s): J44.1 - CHRONIC OBSTRUCTIVE PULMONARY DISEASE W (ACUTE) EXACERBATION (4) Lung cancer Code(s): C34.90 - MALIGNANT NEOPLASM OF UNSP PART OF UNSP BRONCHUS OR LUNG (5) Acute kidney injury Code(s): N17.9 - ACUTE KIDNEY FAILURE, UNSPECIFIED (6) Chronic hypoxemic respiratory failure Code(s): J96.11 - CHRONIC RESPIRATORY FAILURE WITH HYPOXIA Assessment/Plan MP FEVER ? INFLUENZA COPD EXACERBATION CHRONIC HYPOXEMIC RESPIRATORY FAILURE H/O LUNG CA S/P RESECTION,CHEMO HTN HLD HYPOTHYROID TALIB PLAN IV ABX PER ID INHALED BRONCHODILATORS SHORT COURSE OF STEROIDS O2 F/U CHEST X-RAYS MONITOR LYTES,RENAL FUNCTION DR MCGUIRE Problem List - Problems (1) COPD (chronic obstructive pulmonary disease) Code(s): J44.9 - CHRONIC OBSTRUCTIVE PULMONARY DISEASE, UNSPECIFIED Qualifiers: COPD type: COPD with acute lower respiratory infection Qualified Code(s): J44.0 - Chronic obstructive pulmonary disease with acute lower respiratory infection (2) Fever Code(s): R50.9 - FEVER, UNSPECIFIED Qualifiers: Fever type: unspecified Qualified Code(s): R50.9 - Fever, unspecified (3) COPD exacerbation Code(s): J44.1 - CHRONIC OBSTRUCTIVE PULMONARY DISEASE W (ACUTE) EXACERBATION (4) Lung cancer Code(s): C34.90 - MALIGNANT NEOPLASM OF UNSP PART OF UNSP BRONCHUS OR LUNG (5) Acute kidney injury Code(s): N17.9 - ACUTE KIDNEY FAILURE, UNSPECIFIED (6) Chronic hypoxemic respiratory failure Code(s): J96.11 - CHRONIC RESPIRATORY FAILURE WITH HYPOXIA
[2017-12-11] MEDS ORDERED: INSULIN (NOVOLOG) ASPART 100 UNITS/ML 10ML VIAL ONE (19:11)
[2017-12-12] MEDS: AZTREONAM 1 GRAM SYRINGE 1 GM/10 ML DISP.SYRIN IVPUSH SCH ×2 (02:19→09:48)
[2017-12-12] MEDS: methylPREDNISolone NA SUCC 40 MG/1 ML VIAL IVPUSH SCH ×2 (02:20→09:38)
[2017-12-12] MEDS: VANCOMYCIN 1,000 MG in DEXTROSE 5%-WATER - 250 ML IVPB SCH (04:23)
[2017-12-12] MEDS ORDERED: LEVOTHYROXINE NA 100 MCG TABLET (FP) PO SCH (07:00)
[2017-12-12 07:07] VITALS: BP 136/62; PULSE 53; TEMP 97.5
[2017-12-12] MEDS ORDERED: PT OWN MED DRAWER 7, Y5N ONE ×2 (09:35→14:03)
[2017-12-12] MEDS: NYSTATIN/TRIAMCINOLONE TOPICAL CREAM 15 GM TUBE TP SCH (09:38)
[2017-12-12] MEDS: FLUTICASONE/SALMETEROL 100 MCG/50 MCG DISKUS IH SCH (09:38)
[2017-12-12] MEDS: LACTOBACILLUS ACIDOPHILUS 1 EACH TAB (FP) PO SCH (09:38)
[2017-12-12] MEDS: OSELTAMIVIR PHOSPHATE 75 MG CAPSULE PO SCH (09:39)
--- NOTE | 2017-12-12 11:19 | PN ---
Progress Note (short form) - Note Progress Note: Last Vital Signs Temp Pulse Resp BP Pulse Ox 97.5 F L 53 L 18 136/62 97 12/12/17 06:00 12/12/17 06:00 12/12/17 06:00 12/12/17 06:00 12/11/17 21:00 CBC, BMP 12/10/17 06:30 12/10/17 06:30 Current Medications Generic Name Dose Route Start Last Admin Trade Name Freq PRN Reason Stop Dose Admin Acetaminophen 650 mg 12/09/17 17:12 Tylenol - PO Q6H PRN PAIN Acetaminophen 650 mg 12/09/17 17:21 Tylenol - PO Q6H PRN FEVER Albuterol Sulfate 1 amp 12/10/17 11:42 12/11/17 08:05 Ventolin 0.083% Nebulizer Soln - NEB 1 amp Q4H PRN Administration SHORT OF BREATH/WHEEZING Diazepam 2 mg 12/09/17 17:12 Valium - PO Q8H PRN ANXIETY Guaifenesin 10 ml 12/09/17 20:59 12/10/17 22:38 Robitussin - PO 10 ml Q4H PRN Administration COUGH Vancomycin HCl 1,000 mg/ 250 mls @ 166.667 mls/hr 12/10/17 16:00 12/12/17 04: 23 Dextrose IVPB 166.667 mls/hr Q12H [facility] Administration Aztreonam 1 gm in 10 mls @ 100 mls/hr 12/10/17 18:00 12/12/17 09:48 Azactam (Restricted To Id) - IVPUSH 100 mls/hr Q8H-IV [facility] Administration Protocol Lactobacillus Acidophilus 1 tab 12/10/17 10:00 12/12/17 09:38 Bacid - PO 1 tab DAILY [facility] Administration Levothyroxine Sodium 100 mcg 12/12/17 07:00 12/12/17 06:13 Synthroid - PO 100 mcg DAILY@0700 [facility] Administration Methylprednisolone Sodium Succinate 40 mg 12/10/17 18:00 12/12/17 09:38 Solu-Medrol - IVPUSH 40 mg Q8H-IV [facility] Administration Nystatin/Triamcinolone Acetonide 1 applic 12/09/17 22:00 12/12/17 09:38 Mycolog Ii Cream - TP 1 applic BID [facility] Administration Oseltamivir Phosphate 75 mg 12/10/17 22:00 12/12/17 09:39 Tamiflu - PO 12/15/17 21:59 75 mg BID [facility] Administration Fluticasone/Salmeterol 1 puff 12/09/17 22:00 12/12/17 09:38 Advair 100mcg/50mcg - IH 1 puff BID [facility] Administration
--- NOTE | 2017-12-12 12:46 | PN ---
Progress Note (short form) - Note Progress Note: Feels overall better. Wants to go home. Intake & Output 12/09/17 12/10/17 12/11/17 12/12/17 23:59 23:59 23:59 23:59 Intake Total 1150 300 470 Output Total 225 Balance 925 300 470 Weight 133 lb Last Vital Signs Temp Pulse Resp BP Pulse Ox 97.5 F L 53 L 18 136/62 98 12/12/17 06:00 12/12/17 06:00 12/12/17 06:00 12/12/17 06:00 12/12/17 09:00 Active Medications Acetaminophen (Tylenol -) 650 mg PO Q6H PRN PRN Reason: PAIN Acetaminophen (Tylenol -) 650 mg PO Q6H PRN PRN Reason: FEVER Albuterol Sulfate (Ventolin 0.083% Nebulizer Soln -) 1 amp NEB Q4H PRN PRN Reason: SHORT OF BREATH/WHEEZING Last Admin: 12/11/17 08:05 Dose: 1 amp Diazepam (Valium -) 2 mg PO Q8H PRN PRN Reason: ANXIETY Guaifenesin (Robitussin -) 10 ml PO Q4H PRN PRN Reason: COUGH Last Admin: 12/10/17 22:38 Dose: 10 ml Vancomycin HCl 1,000 mg/ (Dextrose) 250 mls @ 166.667 mls/hr IVPB Q12H [facility] Last Admin: 12/12/17 04:23 Dose: 166.667 mls/hr Aztreonam (Azactam (Restricted To Id) -) 1 gm in 10 mls @ 100 mls/hr IVPUSH Q8H -IV [facility] PRN Reason: Protocol Last Admin: 12/12/17 09:48 Dose: 100 mls/hr Lactobacillus Acidophilus (Bacid -) 1 tab PO DAILY [facility] Last Admin: 12/12/17 09:38 Dose: 1 tab Levothyroxine Sodium (Synthroid -) 100 mcg PO DAILY@0700 [facility] Last Admin: 12/12/17 06:13 Dose: 100 mcg Methylprednisolone Sodium Succinate (Solu-Medrol -) 40 mg IVPUSH Q8H-IV [facility] Last Admin: 12/12/17 09:38 Dose: 40 mg Nystatin/Triamcinolone Acetonide (Mycolog Ii Cream -) 1 applic TP BID [facility] Last Admin: 12/12/17 09:38 Dose: 1 applic Oseltamivir Phosphate (Tamiflu -) 75 mg PO BID [facility] Stop: 12/15/17 21:59 Last Admin: 12/12/17 09:39 Dose: 75 mg Fluticasone/Salmeterol (Advair 100mcg/50mcg -) 1 puff IH BID [facility] Last Admin: 12/12/17 09:38 Dose: 1 puff Constitutional: Yes: NAD Cardiovascular: Yes: Regular Rate and Rhythm, S1, S2 Respiratory: Yes: On Nasal O2, No wheezing appreciated Gastrointestinal: Yes: Normal Bowel Sounds, Soft Edema: No Neurological: Yes: Alert, Oriented Labs: Problem List - Problems (1) COPD (chronic obstructive pulmonary disease) Code(s): J44.9 - CHRONIC OBSTRUCTIVE PULMONARY DISEASE, UNSPECIFIED Qualifiers: COPD type: COPD with acute lower respiratory infection Qualified Code(s): J44.0 - Chronic obstructive pulmonary disease with acute lower respiratory infection (2) Fever Code(s): R50.9 - FEVER, UNSPECIFIED Qualifiers: Fever type: unspecified Qualified Code(s): R50.9 - Fever, unspecified (3) COPD exacerbation Code(s): J44.1 - CHRONIC OBSTRUCTIVE PULMONARY DISEASE W (ACUTE) EXACERBATION (4) Lung cancer Code(s): C34.90 - MALIGNANT NEOPLASM OF UNSP PART OF UNSP BRONCHUS OR LUNG (5) Acute kidney injury Code(s): N17.9 - ACUTE KIDNEY FAILURE, UNSPECIFIED (6) Chronic hypoxemic respiratory failure Code(s): J96.11 - CHRONIC RESPIRATORY FAILURE WITH HYPOXIA IMP FEVER ? VIRAL ILLNESS COPD EXACERBATION CHRONIC HYPOXEMIC RESPIRATORY FAILURE H/O LUNG CA S/P RESECTION,CHEMO HTN HLD HYPOTHYROID TALIB PLAN ABX INHALED BRONCHODILATORS PREDNISONE TAPER PATIENT HAS HOME O2 NO SMOKING NO PULMONARY CONTRAINDICATION FOR D/C HOME DR GIANG
--- NOTE | 2017-12-12 13:42 | DS ---
Physical Examination Vital Signs: Vital Signs Temperature 97.5 F L 12/12/17 06:00 Pulse Rate 53 L 12/12/17 06:00 Respiratory Rate 18 12/12/17 06:00 Blood Pressure 136/62 12/12/17 06:00 O2 Sat by Pulse Oximetry (%) 98 12/12/17 09:00 Constitutional: Yes: Calm, Other (Hard of hearing) Cardiovascular: Yes: Regular Rate and Rhythm, S1, S2 Respiratory: Yes: CTA Bilaterally, On Nasal O2, Other (no wheezing on oxygen) Gastrointestinal: Yes: Soft Edema: No Neurological: Yes: Alert, Oriented Labs: CBC, BMP 12/10/17 06:30 12/10/17 06:30 Discharge Summary Reason For Visit: FEVER; CHRONIC OBSTRUCTIVE PULMONARY DISEASE Current Active Problems Acute kidney injury (Acute) COPD (chronic obstructive pulmonary disease) (Acute) Chronic hypoxemic respiratory failure (Acute) Fever (Acute) Hypothyroid (Acute) Secondary hyperthyroidism (Acute) Hospital Course: - Primary Care Physician PCP: Axel Murguia - Admission Chief Complaint: sent in by PMD for cough History of Present Illness: The patient is a 82 year old female, with a significant past medical history of lung cancer (in remission for 1 year, s/p chemotherapy, resection), COPD ( oxygen dependent 4 LPM at home), hypertension, hyperlipidemia, hypothyroidism, who presents to the emergency department with, approx. 2 days of productive cough with yellow sputum and measured fever (102 F). As per the patients , the patient began having a productive cough on Saturday and a measured temperature of 102 F. He reports he took the patient to see her PCP Dr. Murguia earlier today who advised the patient to come to the ED for evaluation. She reports her last hospitalization was approx. one year ago for pneumonia. She states she did receive her flu shot this year. She denies recent headache or dizziness. She denies recent nausea, vomit, diarrhea or constipation. She denies recent dysuria, frequency, urgency or hematuria. She denies recent chest pain. Allergies: levofloxacin, penicillins in ER vancomycin/ aztreonam/ solumedrol and albuterol hospital: admitted for COPD exacerbation. iv steroids bronchodilators emperic influenza coverage taper prednisone Condition: Improved - Instructions Diet, Activity, Other Instructions: take tamiflu for 3 more days nasal oxgyen at home prednisone 40mg po daily for 5 days then 30mg for 2 days,20mg for 2 days,10mg for 2 days,then stop Referrals: Axel Murguia MD [Primary Care Provider] - Disposition: HOME - Home Medications Comprehensive Discharge Medication List: Ambulatory Orders Levothyroxine [Synthroid -] 125 mcg PO DAILY 10/25/15 Acetaminophen [Tylenol .Regular Strength -] 650 mg PO Q6H PRN #0 tablet Albuterol 0.083% Nebulizer Yaima [Ventolin 0.083% Nebulizer Soln -] 1 amp NEB Q4H PRN #0 amp 07/06/16 Diazepam 2 mg PO TID PRN 12/09/17 Fluticasone/Salmeterol [Advair Hfa 115-21 Mcg Inhaler] 1 inh PO BID 12/09/17 Guaifenesin [Robitussin -] 10 ml PO Q4H PRN #100 ml MDD 40ml 12/12/17 Oseltamivir Phosphate [Tamiflu -] 75 mg PO BID #7 capsule 12/12/17 predniSONE [Deltasone -] 10 mg PO DAILY #30 tablet MDD 4 12/12/17
[2017-12-12] MEDS: guaiFENesin 200 MG/10 ML 10 ML UNIT-DOSE CUPS PO PRN (13:51)
--- NOTE | 2017-12-12 13:52 | PN ---
Progress Note, Physician History of Present Illness: Awake,alert Seated in bed Offers no complaints Breathing appears better No c/o urinary tract symptoms - Current Medication List Current Medications: Active Medications Acetaminophen (Tylenol -) 650 mg PO Q6H PRN PRN Reason: PAIN Acetaminophen (Tylenol -) 650 mg PO Q6H PRN PRN Reason: FEVER Albuterol Sulfate (Ventolin 0.083% Nebulizer Soln -) 1 amp NEB Q4H PRN PRN Reason: SHORT OF BREATH/WHEEZING Last Admin: 12/11/17 08:05 Dose: 1 amp Diazepam (Valium -) 2 mg PO Q8H PRN PRN Reason: ANXIETY Guaifenesin (Robitussin -) 10 ml PO Q4H PRN PRN Reason: COUGH Last Admin: 12/10/17 22:38 Dose: 10 ml Vancomycin HCl 1,000 mg/ (Dextrose) 250 mls @ 166.667 mls/hr IVPB Q12H [facility] Last Admin: 12/12/17 04:23 Dose: 166.667 mls/hr Aztreonam (Azactam (Restricted To Id) -) 1 gm in 10 mls @ 100 mls/hr IVPUSH Q8H -IV [facility] PRN Reason: Protocol Last Admin: 12/12/17 09:48 Dose: 100 mls/hr Lactobacillus Acidophilus (Bacid -) 1 tab PO DAILY [facility] Last Admin: 12/12/17 09:38 Dose: 1 tab Levothyroxine Sodium (Synthroid -) 100 mcg PO DAILY@0700 [facility] Last Admin: 12/12/17 06:13 Dose: 100 mcg Methylprednisolone Sodium Succinate (Solu-Medrol -) 40 mg IVPUSH Q8H-IV [facility]HAT Last Admin: 12/12/17 09:38 Dose: 40 mg Nystatin/Triamcinolone Acetonide (Mycolog Ii Cream -) 1 applic TP BID [facility] Last Admin: 12/12/17 09:38 Dose: 1 applic Oseltamivir Phosphate (Tamiflu -) 75 mg PO BID [facility] Stop: 12/15/17 21:59 Last Admin: 12/12/17 09:39 Dose: 75 mg Fluticasone/Salmeterol (Advair 100mcg/50mcg -) 1 puff IH BID [facility] Last Admin: 12/12/17 09:38 Dose: 1 puff - Objective Vital Signs: Vital Signs Temperature 97.5 F L 12/12/17 06:00 Pulse Rate 53 L 12/12/17 06:00 Respiratory Rate 18 12/12/17 06:00 Blood Pressure 136/62 12/12/17 06:00 O2 Sat by Pulse Oximetry (%) 98 12/12/17 09:00 Constitutional: Yes: No Distress Eyes: Yes: Conjunctiva Clear Cardiovascular: Yes: Regular Rate and Rhythm, S1, S2 Respiratory: Yes: Rhonchi, Other (improved) Gastrointestinal: Yes: Normal Bowel Sounds. No: Tenderness Labs: CBC, BMP 12/10/17 06:30 12/10/17 06:30 INR, PTT INR 1.09 (0.82-1.09) 12/09/17 10:58 Assessment/Plan Acute exacerabation COPD- improved URI ? Influenza Lung ca PCN allergy Asymptomatic bacteruria D/C antibiotics, observe Complete 5d course Tamiflu
--- NOTE | 2017-12-12 23:27 | PN ---
Progress Note (short form) - Note Progress Note: hyperthyroid excess thyroid dose adjustment needed ok to dc on synthroid 100mcg daily and repeat tsh freet t4 as outpatient follow up for blood work in 3-4 weeks. since previous dose was 125mcg lower dose to 100mcg and repeat tft as outpatient.
== END 2017-12-12 14:36 | disposition home or self-care (01) | DRG 191 ==
LOC: JER 10:48 → JERBED 12:46 → J5S 14:30
PROVIDERS: ADMIT Family Medicine; ATTEND Family Medicine
DX: J44.1 Chronic obstructive pulmonary disease with (acute) exacerbation (principal); J96.11 Chronic respiratory failure with hypoxia; N17.9 Acute kidney failure, unspecified; I10 Essential (primary) hypertension; J44.0 Chronic obstructive pulmonary disease with (acute) lower respiratory infection; J11.1 Influenza due to unidentified influenza virus with other respiratory manifestations; E78.5 Hyperlipidemia, unspecified; E03.9 Hypothyroidism, unspecified; E05.90 Thyrotoxicosis, unspecified without thyrotoxic crisis or storm; R50.9 Fever, unspecified; H91.8X3 Other specified hearing loss, bilateral; Z88.0 Allergy status to penicillin; Z99.81 Dependence on supplemental oxygen; Z85.118 Personal history of other malignant neoplasm of bronchus and lung; Z87.891 Personal history of nicotine dependence
CPT/HCPCS: 36415; 71045-TC-FY; 80053; 82550; 82803; 82962; 83036; 83605; 84443; 84484; 85025; 85027; 85610; 85730; 86850; 86900; 86901; 87040; 87070; 87086; 87186; 87205; 87804; 93005; 93010; 94640; 97116-GP; 97161-GP; 99285-25

== ENCOUNTER 2018-01-31 23:07 | Inpatient (IN) | payer OTHER ==
[2018-01-31 23:49] LABS: BASO % 0.3 % (0-2.0); EOS % 1.1 % (0-4.5); HEMOGLOBIN 11.5 GM/dL (10.7-15.3); LYMPH % 6.7 % (8-40); MCH 29.2 pg (25.7-33.7); MCHC 33.9 g/dl (32.0-36.0); MEAN CELL VOLUME 86.3 fl (80-96); MEAN PLT VOLUME 7.9 fl (7.5-11.1); NEUT % 86.9 % (42.8-82.8); PLATELET COUNT 273 K/MM3 (134-434); RBC 3.94 M/mm3 (3.60-5.2); RDW 15.1 % (11.6-15.6); WHITE BLOOD COUNT 10.9 K/mm3 (4.0-10.0)
--- NOTE | 2018-01-31 23:52 | PDOC ---
History of Present Illness - General History Source: Patient, Spouse Exam Limitations: No Limitations - History of Present Illness Initial Comments: 01/31/18 23:53 The patient is a 82 year old female, with a significant past medical history of lung cancer (in remission for 1 year, s/p chemotherapy, resection), COPD ( oxygen dependent 4 LPM at home), hypertension, hyperlipidemia, hypothyroidism, who presents to the emergency department s/p unwitnessed mechanical fall earlier today. As per , the patient was in the kitchen when she missed a step, fell, and landed on her left side. Patient reports associated left hip pain, but denies any knee, thigh, or left upper extremity pain. The reports the patient was unambulatory s/p fall and was unable to bear any weight on her left leg. Patient denies any head trauma, LOC, changes in vision, neck or back pain, numbness or tingling. She denies any chest pain, shortness of breath, diaphoresis, palpitations, or lower extremity edema. She denies any abdominal pain, nausea, or vomiting. Patient is not on any blood thinners. No history of hip or knee surgeries. No recent travel or sick contacts. Allergies: Levofloxacin, Penicillins Past Surgical History: left rotator cuff repair, 20% right lung removed Social History: Former smoker. No ETOH or recreational drug use. PCP: Dr. Murguia <Tiana Ramsey - Last Filed: 02/01/18 01:26> - General History Source: Patient Exam Limitations: No Limitations <Zee Trujillo - Last Filed: 02/01/18 01:40> - General Chief Complaint: Injury Stated Complaint: FALL Time Seen by Provider: 01/31/18 23:13 Past History <Tiana Ramsey - Last Filed: 02/01/18 01:26> - Past Medical History Anemia: No Asthma: No Cancer: Yes (LUNG.) Cardiac Disorders: No CVA: No COPD: Yes CHF: No Dementia: No Diabetes: No GI Disorders: No Disorders: No HTN: No Hypercholesterolemia: No Liver Disease: No Seizures: No Thyroid Disease: Yes (HYPO) - Surgical History Abdominal Surgery: No Appendectomy: No Cardiac Surgery: No Cholecystectomy: No Lung Surgery: Yes (20% RT LUNG REMOVED.) Neurologic Surgery: No Orthopedic Surgery: Yes (rotator cuff left) - Immunization History Immunization Up to Date: Yes - Suicide/Smoking/Psychosocial Hx Smoking History: Former smoker Have you smoked in the past 12 months: No Number of Cigarettes Smoked Daily: 0 If you are a former smoker, when did you quit?: 40 yrs ago Cigars Per Day: 0 Information on smoking cessation initiated: No Hx Alcohol Use: No Drug/Substance Use Hx: No Substance Use Type: None Hx Substance Use Treatment: No <Zee Trujillo - Last Filed: 02/01/18 01:40> - Past Medical History Allergies/Adverse Reactions: Allergies Allergy/AdvReac Type Severity Reaction Status Date / Time levofloxacin [From Levaquin] Allergy Mild Itching Verified 12/09/17 10:50 Penicillins Allergy Mild Hives Verified 12/09/17 10:50 Home Medications: Ambulatory Orders Levothyroxine [Synthroid -] 125 mcg PO DAILY 10/25/15 Acetaminophen [Tylenol .Regular Strength -] 650 mg PO Q6H PRN #0 tablet Albuterol 0.083% Nebulizer Yaima [Ventolin 0.083% Nebulizer Soln -] 1 amp NEB Q4H PRN #0 amp 07/06/16 Diazepam 2 mg PO TID PRN 12/09/17 Fluticasone/Salmeterol [Advair Hfa 115-21 Mcg Inhaler] 1 inh PO BID 12/09/17 Guaifenesin [Robitussin -] 10 ml PO Q4H PRN #100 ml MDD 40ml 12/12/17 Oseltamivir Phosphate [Tamiflu -] 75 mg PO BID #7 capsule 12/12/17 predniSONE [Deltasone -] 10 mg PO DAILY #30 tablet MDD 4 12/12/17 Review of Systems - Review of Systems Able to Perform ROS?: Yes Comments:: 01/31/18 23:53 GENERAL/CONSTITUTIONAL: No fever or chills. No weakness. HEAD, EYES, EARS, NOSE AND THROAT: No change in vision. No ear pain or discharge. No sore throat. CARDIOVASCULAR: No chest pain or shortness of breath. RESPIRATORY: No cough, wheezing, or hemoptysis. GASTROINTESTINAL: No nausea, vomiting, diarrhea or constipation. GENITOURINARY: No dysuria, frequency, or change in urination. MUSCULOSKELETAL: +Left hip pain. No other joint or muscle swelling or pain. No neck or back pain. SKIN: No rash NEUROLOGIC: +Unable to ambulate s/p fall. No headache, vertigo, loss of consciousness, or change in strength/sensation. ENDOCRINE: No increased thirst. No abnormal weight change. HEMATOLOGIC/LYMPHATIC: No anemia, easy bleeding, or history of blood clots. ALLERGIC/IMMUNOLOGIC: No hives or skin allergy. <RamseyMichellejúnior - Last Filed: 02/01/18 01:26> *Physical Exam - Vital Signs Last Vital Signs Temp Pulse Resp BP Pulse Ox 97.2 F L 98 H 165/65 99 01/31/18 23:10 01/31/18 23:10 01/31/18 23:10 01/31/18 23:10 - Physical Exam Comments: 01/31/18 23:53 GENERAL: Awake, alert, and fully oriented, in no acute distress HEAD: No signs of trauma EYES: PERRLA, EOMI, sclera anicteric, conjunctiva clear ENT: Hard of hearing. Auricles normal inspection, hearing grossly normal, nares patent. Moist mucosa NECK: Normal ROM, supple, no lymphadenopathy, JVD, or masses LUNGS: Breath sounds equal, clear to auscultation bilaterally. No wheezes, and no crackles HEART: Regular rate and rhythm, normal S1 and S2, no murmurs, rubs or gallops ABDOMEN: Soft, nontender, normoactive bowel sounds. No guarding, no rebound. No masses EXTREMITIES: +Left hip tenderness to palpation, externally rotated and shortened. No left knee or ankle tenderness. No edema. No clubbing or cyanosis. No cords, erythema, or tenderness. DP/PT pulses 2+ and symmetric. NEUROLOGICAL: Moves upper extremities. Normal speech SKIN: Warm, Dry, normal turgor, no rashes or lesions noted. <RamseyTiana valle - Last Filed: 02/01/18 01:26> - Vital Signs Last Vital Signs Temp Pulse Resp BP Pulse Ox 97.2 F L 98 H 165/65 99 01/31/18 23:10 01/31/18 23:10 01/31/18 23:10 01/31/18 23:10 <Zee Trujillo - Last Filed: 02/01/18 01:40> Heart Score/ECG Review #1 General ECG Interpretation: Sinus Rhythm, Normal Rate (80), Normal Intervals, No acute ischemic changes <Zee Trujillo - Last Filed: 02/01/18 01:40> ED Treatment Course - LABORATORY CBC & Chemistry Diagram: 01/31/18 23:45 01/31/18 23:45 <Tiana Ramsey - Last Filed: 02/01/18 01:26> - LABORATORY CBC & Chemistry Diagram: 01/31/18 23:45 01/31/18 23:45 - RADIOLOGY Radiology Studies Ordered: Category Date Time Status CHEST - PA [RAD] Stat Radiology 01/31/18 23:40 Ordered HIP & PELVIS-LEFT [RAD] Stat Radiology 01/31/18 23:39 Ordered <Zee Trujillo - Last Filed: 02/01/18 01:40> Medical Decision Making - Medical Decision Making 02/01/18 01:11 First call placed to Dr. Jeronimo at 01:12. Awaiting call back. Case discussed with Dr. Jeronimo at 01:26. <Tiana Ramsye - Last Filed: 02/01/18 01:26> - Medical Decision Making 01/31/18 23:51 82-year-old female multiple medical problems here status post trip and fall landing on her left side now complaining of left hip pain patient is unable to walk here with your wall denies head trauma no neck or back pain happened just prior to arrival Physical exam her left hip is tender externally rotated and shortened she is neurovascularly intact distally next Differential includes hip dislocation, hip fracture, plan chest x-ray EKG labs x -ray of the pelvis and hip would likely require admission possible surgery of her hip fracture <Zee Trujillo - Last Filed: 02/01/18 01:40> *DC/Admit/Observation/Transfer - Attestations Scribe Attestion: 01/31/18 23:54 Documentation prepared by Tiana Ramsey, acting as medical asst for Zee Trujillo MD. <Tiana Ramsey - Last Filed: 02/01/18 01:26> - Discharge Dispostion Admit: Yes <Zee Trujillo - Last Filed: 02/01/18 01:40> Diagnosis at time of Disposition: Hip fracture - Discharge Dispostion Condition at time of disposition: Stable - Referrals Referrals: Axel Murguia MD [Primary Care Provider] -
[2018-02-01 00:07] LABS: INR 1.04 (0.82-1.09); PROTHROMBIN TIME (PATIENT) 11.8 SEC (9.98-11.88)
[2018-02-01 00:29] LABS: ALBUMIN 4.2 g/dl (3.4-5.0); ALK PHOS 164 U/L (45-117); ANION GAP 11 (8-16); BILIRUBIN,TOTAL 0.2 mg/dL (0.2-1.0); BLOOD UREA NITROGEN 39 mg/dL (7-18); CALCIUM 9.7 mg/dL (8.5-10.1); CHLORIDE 102 mmol/L (98-107); CO2 27 mmol/L (21-32); GLUCOSE,RANDOM 128 mg/dL (74-106); POTASSIUM 4.1 mmol/L (3.5-5.1); SGOT/AST 17 U/L (15-37); SGPT/ALT 20 U/L (12-78); SODIUM 140 mmol/L (136-145)
[2018-02-01] MEDS ORDERED: morphine CARPU-JECT 2 MG/1 ML DISP.SYRIN IVPUSH ONE (00:31)
[2018-02-01] MEDS ORDERED: morphine SULFATE 4 MG/ML VIAL ONE ×2 (00:35→02:27)
[2018-02-01] MEDS ORDERED: morphine SULFATE 4 MG/ML VIAL IVPUSH ONE (02:13)
[2018-02-01] MEDS ORDERED: morphine CARPU-JECT 4 MG/1 ML DISP.SYRIN IVPUSH ONE (02:13)
--- NOTE | 2018-02-01 02:14 | HP ---
CHIEF COMPLAINT: left hip pain s/p fall PCP: [facility] HISTORY OF PRESENT ILLNESS: This is an 82 year old female with a past medical history significant for COPD 4L oxygen dependent, HTN, HLD who presented to the ED after falling in her kitchen. States she tripped and fell. Denies dizziness, palpitations, chest pain or presyncopal symptoms. Pt reports pain in her leg persistent despite receiving morphine. ROS limited by extreme [place] despite hearing aid being in place. answered for patient most of the time. ER course was notable for: (1) Left hip fracture on xray (2) labs WNL Recent Travel: pt denies PAST MEDICAL HISTORY: lung CA s/p 20% right lung removed, chemo and radiation, remission x 1y; COPD ( 4LNC oxygen dependent); HTN, HLD, hypothyroid, diverticulitis PAST SURGICAL HISTORY: hysterectomy 20% R lung removed L rotator cuff repair Social History: Smoking: quit 40y ago, prior 1ppd Alcohol: pt denies Drugs: pt denies Family History: mother age 96 after hip fx father age 92 brother in late 60s, stomach CA brother , ESRD sister , lung CA, 70s Allergies levofloxacin [From Levaquin] Allergy (Mild, Verified 12/09/17 10:50) Itching Penicillins Allergy (Mild, Verified 12/09/17 10:50) Hives Home Medications 3 Medication Instructions Recorded Acetaminophen [Tylenol .Regular 650 mg PO Q6H PRN #0 tablet 07/06/16 Strength -] Albuterol 0.083% Nebulizer Yaima 1 amp NEB Q4H PRN #0 amp 07/06/16 [Ventolin 0.083% Nebulizer Soln -] Diazepam 2 mg PO TID PRN 12/09/17 Fluticasone/Salmeterol [Advair 1 each IH BID 02/01/18 500-50 Diskus] Levothyroxine [Synthroid -] 112 mcg PO DAILY 02/01/18 also states pt is on welchol and something for BP REVIEW OF SYSTEMS CONSTITUTIONAL: Absent: fever, chills, diaphoresis, generalized weakness, malaise, loss of appetite, weight change HEENT: Absent: rhinorrhea, nasal congestion, throat pain, throat swelling, difficulty swallowing, mouth swelling, ear pain, eye pain, visual changes CARDIOVASCULAR: Absent: chest pain, syncope, palpitations, irregular heart rate, lightheadedness , peripheral edema RESPIRATORY: Absent: cough, shortness of breath, dyspnea with exertion, orthopnea, wheezing, stridor, hemoptysis GASTROINTESTINAL: Absent: abdominal pain, abdominal distension, nausea, vomiting, diarrhea, constipation, melena, hematochezia GENITOURINARY: Absent: dysuria, frequency, urgency, hesitancy, hematuria, flank pain, genital pain MUSCULOSKELETAL: Present: Left hip pain Absent: myalgia, arthralgia, joint swelling, back pain, neck pain SKIN: Absent: rash, itching, pallor HEMATOLOGIC/IMMUNOLOGIC: Absent: easy bleeding, easy bruising, lymphadenopathy, frequent infections ENDOCRINE: Absent: unexplained weight gain, unexplained weight loss, heat intolerance, cold intolerance NEUROLOGIC: Absent: headache, focal weakness or paresthesias, dizziness, unsteady gait, seizure, mental status changes, bladder or bowel incontinence PSYCHIATRIC: Absent: anxiety, depression, suicidal or homicidal ideation, hallucinations. PHYSICAL EXAMINATION Vital Signs - 24 hr 3 01/31/18 02/01/18 23:10 02:06 Temperature 97.2 F L 99 F Pulse Rate 98 H Pulse Rate [ 89 Left Radial] Respiratory 18 Rate Blood Pressure 165/65 Blood Pressure 126/78 [Right Arm] O2 Sat by Pulse 99 Oximetry (%) GENERAL: Awake, alert, and fully oriented, in no acute distress. HEAD: Normal with no signs of trauma. EYES: Pupils equal, round and reactive to light, extraocular movements intact, sclera anicteric, conjunctiva clear. No lid lag. EARS, NOSE, THROAT: Ears normal, nares patent, oropharynx clear without exudates. Moist mucous membranes. NECK: Normal range of motion, supple without lymphadenopathy, JVD, or masses. LUNGS: Breath sounds equal, clear to auscultation bilaterally. No wheezes, and no crackles. No accessory muscle use. HEART: Regular rate and rhythm, normal S1 and S2 without murmur, rub or gallop. ABDOMEN: Soft, nontender, not distended, normoactive bowel sounds, no guarding, no rebound, no masses. No hepatomegaly or splenomegaly. MUSCULOSKELETAL: Normal range of motion at all joints except left hip. No bony deformities or tenderness. No CVA tenderness. L leg shortened and rotated, limited ROM L hip secondary to pain UPPER EXTREMITIES: 2+ pulses, warm, well-perfused. No cyanosis. No clubbing. No peripheral edema. LOWER EXTREMITIES: 2+ pulses, warm, well-perfused. No calf tenderness. No peripheral edema. NEUROLOGICAL: Cranial nerves II-XII intact. Normal speech. Normal gait. PSYCHIATRIC: Cooperative. Good eye contact. Appropriate mood and affect. SKIN: Warm, dry, normal turgor, no rashes or lesions noted, normal capillary refill. Laboratory Results - last 24 hr 3 01/31/18 01/31/18 01/31/18 23:45 23:45 23:45 WBC 10.9 H D RBC 3.94 Hgb 11.5 Hct 34.0 MCV 86.3 MCH 29.2 MCHC 33.9 RDW 15.1 Plt Count 273 MPV 7.9 Neutrophils % 86.9 H Lymphocytes % 6.7 L D Monocytes % 5.0 Eosinophils % 1.1 Basophils % 0.3 PT with INR 11.80 INR 1.04 PTT (Actin FS) 24.0 L Sodium 140 Potassium 4.1 Chloride 102 Carbon Dioxide 27 Anion Gap 11 BUN 39 H Creatinine 1.0 Creat Clearance w eGFR 53.35 Random Glucose 128 H Calcium 9.7 Total Bilirubin 0.2 AST 17 ALT 20 Alkaline Phosphatase 164 H Total Protein 8.0 Albumin 4.2 Blood Type B POSITIVE Antibody Screen Negative ECG Sinus rhythm with marked sinus arrhythmia vent rate 80, QTC [address]/T wave changes Radiology Reports L hip-official read pending, obvious left hip fracture CXR-official read pending ASSESSMENT/PLAN: 82yF with PMH lung CA s/p 20% right lung removed, chemo and radiation, remission x 1y; COPD (4LNC oxygen dependent); HTN, HLD, hypothyroid, diverticulitis presented to the ED s/p fall with L hip fracture. L hip fracture - Ortho consulted by ED - NPO for possible OR in am - morphine 4mg x 1 now and 2mg q4h PRN, monitor efficacy - miralax for constipation prevention - zofran PRN if nausea COPD - cont home advair - cont oxygen 4L NC - albuterol PRN HTN - BP stable - PCP to f/u in am regarding home med HLD - hold welchol for now hypothyroid - cont home synthroid 112, dose recently adjusted as per , f/u TSH as outpatient DVT PPX - hold for now, start heparin if not going to OR FEN - NS @ 75cc/hr while npo - BMP in am - NPO for now Dispo: Pt currently requires further inpatient management of her emergent condition. Visit type - Emergency Visit Emergency Visit: Yes ED Registration Date: 01/31/18 Care time: The patient presented to the Emergency Department on the above date and was hospitalized for further evaluation of their emergent condition. - New Patient This patient is new to me today: Yes Date on this admission: 02/01/18 - Critical Care Critical Care patient: No Hospitalist Screening - Colonoscopy Questionnaire Colonoscopy Questionnaire: Colonoscopy Questionnaire - Patient: 50 - 75 years old and never had a screening colonoscopy: No History of colon or rectal polyps, or CA: No History of IBD, Crohn's disease or UC: No History of abdominal radiation therapy as a child: No - Relative: 1 with colon or rectal CA, or polyps at age 60 or younger: No Colon or rectal CA diagnosed at age 45 or younger: No Multiple relatives with colon or rectal CA: No - Outcome: Screening Result: Negative Screen
[2018-02-01] MEDS ORDERED: ONDANSETRON 4 MG/2 ML VIAL IVPUSH PRN (03:10)
[2018-02-01] MEDS ORDERED: diazePAM 2 MG TABLET PO PRN (03:18)
[2018-02-01] MEDS ORDERED: ALBUTEROL SO4 0.083% IH SOL 2.5 MG/3 ML VIAL.NEB. NEB PRN (03:18)
[2018-02-01 03:58] VITALS: BMI 23.9
[2018-02-01] MEDS: SODIUM CHLORIDE 1,000 ML IV SCH ×2 (04:15→17:15)
[2018-02-01] MEDS: LEVOTHYROXINE NA 112 MCG TABLET (FP) PO SCH (06:16)
[2018-02-01 07:51] LABS: BASO % 0.9 % (0-2.0); EOS % 0.8 % (0-4.5); HEMATOCRIT 30.2 % (32.4-45.2); HEMOGLOBIN 10.1 GM/dL (10.7-15.3); LYMPH % 10.2 % (8-40); MCHC 33.5 g/dl (32.0-36.0); MEAN CELL VOLUME 86.5 fl (80-96); MEAN PLT VOLUME 7.9 fl (7.5-11.1); NEUT % 81.1 % (42.8-82.8); PLATELET COUNT 200 K/MM3 (134-434); RBC 3.49 M/mm3 (3.60-5.2); RDW 15.1 % (11.6-15.6); WHITE BLOOD COUNT 9.2 K/mm3 (4.0-10.0)
[2018-02-01 08:29] LABS: ANION GAP 7 (8-16); BLOOD UREA NITROGEN 33 mg/dL (7-18); CALCIUM 9.1 mg/dL (8.5-10.1); CHLORIDE 107 mmol/L (98-107); CO2 28 mmol/L (21-32); GLUCOSE,RANDOM 123 mg/dL (74-106); PHOSPHOROUS 4.5 mg/dL (2.5-4.9); POTASSIUM 4.5 mmol/L (3.5-5.1); SODIUM 142 mmol/L (136-145)
[2018-02-01 08:30] LABS: CREATININE 0.7 mg/dL (0.55-1.02)
[2018-02-01] MEDS: POLYETHYLENE GLYCOL 3350 119 GM BTL PO SCH (09:13)
[2018-02-01] MEDS: morphine SULFATE 4 MG/ML VIAL IVPUSH PRN ×3 (09:25→23:44)
[2018-02-01] MEDS: BUDESONIDE/FORMETEROL FUMARATE 160/4.5 mcg INHALER IH SCH ×2 (09:26→22:05)
--- NOTE | 2018-02-01 09:52 | EKG ---
Test Reason : Blood Pressure : / mmHG Vent. Rate : 080 BPM Atrial Rate : 080 BPM P-R Int : 136 ms QRS Dur : 088 ms QT Int : 386 ms P-R-T Axes : 019 056 062 degrees QTc Int : 445 ms POOR DATA QUALITY, INTERPRETATION MAY BE ADVERSELY AFFECTED SINUS RHYTHM WITH MARKED SINUS ARRHYTHMIA OTHERWISE NORMAL ECG WHEN COMPARED WITH ECG OF 09-DEC-2017 11:18, BORDERLINE CRITERIA FOR ANTERIOR INFARCT ARE NO LONGER PRESENT Confirmed by AARON ALVAREZ MD ([id number]) on 02/01/2018 9:51:39 AM Referred By: Confirmed By:AARON ALVAREZ MD
--- NOTE | 2018-02-01 10:47 | PN ---
Progress Note (short form) - Note Progress Note: Pt seen and examined. She is an 82 year old Female with a h/o Lung CA, bad COPD , s/p partial lung resection, s/p fall last night, c/o left hip pain. AVSS PE LLE is mildly shortened and externally rotated LLE is grossly NVI + pain to pressure around the left hip Xrays Show what appears to be a pathologic fracture of the left femoral neck There is a moth eaten appearance to the lateral aspect of the left hip femoral neck, potentially consistent with metastatic Lung CA, as well as a lytic lesion in the proximal femur. Imp Pathologic fracture left hip/femoral neck, h/o lung CA and COPD. Rec I spoke with nursing and Toy Stuffer and She needs a left hip hemiarthroplasty, but in the setting of severe COPD she needs medical and pulmonology clearance. Left hip chadwick surgery therefore more likely to be on Saturday, or early this week. Will follow We will send off ample specimen for pathology
--- NOTE | 2018-02-01 11:10 | CON.PULM ---
Consult Consult Specialty:: PULMONARY Referred by:: TABATHA Reason for Consultation:: COPD - History of Present Illness Chief Complaint: FALL S/P LEFT HIP FX History of Present Illness: The patient is a 82 year old female, with a significant past medical history of lung cancer (in remission for 1 year, s/p chemotherapy, resection), COPD ( oxygen dependent 4 LPM at home), hypertension, hyperlipidemia, hypothyroidism, who presents to the emergency department s/p unwitnessed mechanical fall earlier today. As per , the patient was in the kitchen when she missed a step, fell, and landed on her left side. Patient reports associated left hip pain, but denies any knee, thigh, or left upper extremity pain. The reports the patient was unambulatory s/p fall and was unable to bear any weight on her left leg. Patient denies any head trauma, LOC, changes in vision, neck or back pain, numbness or tingling. She denies any chest pain, shortness of breath, diaphoresis, palpitations, or lower extremity edema. She denies any abdominal pain, nausea, or vomiting. Patient is not on any blood thinners. No history of hip or knee surgeries. No recent travel or sick contacts. 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 No: Alzheimer's Cardio/Vascular: Yes: HTN Pulmonary: Yes: Cancer (adenocarcinoma s/p RT and chemo), COPD (home oxygen) Gastrointestinal: Yes: Diverticulitis (02/2015), Diverticulosis Endocrine: Yes: Hyperthyroidism - Past Surgical History Past Surgical History: Yes: Hysterectomy Additional Surgical History: VAT WEDGE RESECTION - Alcohol/Substance Use Hx Alcohol Use: No - Smoking History Smoking history: Former smoker Have you smoked in the past 12 months: No Aproximately how many cigarettes per day: 0 If you are a former smoker, when did you quit?: 40 yrs ago - Social History Usual Living Arrangement: With Spouse ADL: Independent History of Recent Travel: No Home Medications - Allergies Allergies/Adverse Reactions: Allergies Allergy/AdvReac Type Severity Reaction Status Date / Time levofloxacin [From Levaquin] Allergy Mild Itching Verified 12/09/17 10:50 Penicillins Allergy Mild Hives Verified 12/09/17 10:50 - Home Medications Home Medications: Ambulatory Orders Acetaminophen [Tylenol .Regular Strength -] 650 mg PO Q6H PRN #0 tablet Albuterol 0.083% Nebulizer Yaima [Ventolin 0.083% Nebulizer Soln -] 1 amp NEB Q4H PRN #0 amp 07/06/16 Diazepam 2 mg PO TID PRN 12/09/17 Fluticasone/Salmeterol [Advair 250-50 Diskus] 1 each IH BID 02/01/18 Levothyroxine [Synthroid -] 112 mcg PO DAILY 02/01/18 Review of Systems Unable to obtain ROS, reason: UNABLE Physical Exam Vital Sings: Vital Signs Temperature 98.2 F 02/01/18 08:00 Pulse Rate 82 02/01/18 08:00 Respiratory Rate 18 02/01/18 08:00 Blood Pressure 150/70 02/01/18 08:00 O2 Sat by Pulse Oximetry (%) 95 02/01/18 03:30 Constitutional: Yes: Calm Eyes: Yes: EOM Intact HENT: Yes: Normocephalic Neck: Yes: Trachea Midline Cardiovascular: Yes: Regular Rate and Rhythm Respiratory: Yes: Diminished Gastrointestinal: Yes: Normal Bowel Sounds Extremities: Yes: External Rotation (LEFT LEG) Edema: No Integumentary: Yes: Other (MORPHEA LESIONS NOTED LOWER EXT) Neurological: Yes: Alert Psychiatric: Yes: Alert Labs: CBC, BMP 02/01/18 07:30 02/01/18 07:30 REST REVIEWED Imaging - Results Chest X-ray: Report Reviewed, Image Reviewed X-ray: Report Reviewed, Image Reviewed EKG: Report Reviewed Problem List - Problems (1) Hip fracture Code(s): S72.009A - FRACTURE OF UNSP PART OF NECK OF UNSP FEMUR, INIT (2) COPD (chronic obstructive pulmonary disease) Code(s): J44.9 - CHRONIC OBSTRUCTIVE PULMONARY DISEASE, UNSPECIFIED Qualifiers: COPD type: COPD with acute lower respiratory infection Qualified Code(s): J44.0 - Chronic obstructive pulmonary disease with acute lower respiratory infection (3) Chronic hypoxemic respiratory failure Code(s): J96.11 - CHRONIC RESPIRATORY FAILURE WITH HYPOXIA (4) Hypothyroid Code(s): E03.9 - HYPOTHYROIDISM, UNSPECIFIED (5) Lung cancer Code(s): C34.90 - MALIGNANT NEOPLASM OF UNSP PART OF UNSP BRONCHUS OR LUNG Assessment/Plan DUE TO END STAGE NATURE OF COPD AND O2 DEPENDENCY PATIENT IS AT INCREASED RISK FOR PROLONGED INTUBATION/POST-OP PNA, ATELECTASIS ETC. A KACIE-ARTHROPLASTY IS REQUIRED PER ORTHO A CT OF LEFT FEMUR/PELVIS ORDERED TO R/O POSSIBILITY OF A PATHOLOGIC FX GIVEN H/O NSCLC RESECTED IN PAST PATIENT WILL NEED O2 SUPPLEMENTATION/BRONCHODILATORS/STRESS DOSE STEROIDS WILL FOLLOW THANK YOU Ellen DENTON MD
[2018-02-01] MEDS ORDERED: methylPREDNISolone NA SUCC 40 MG/1 ML VIAL IVPUSH SCH (11:30)
[2018-02-01] MEDS: methylPREDNISolone NA SUCC 40 MG/1 ML VIAL IVPUSH SCH ×2 (14:55→17:14)
--- NOTE | 2018-02-01 16:59 | PN ---
Progress Note, Physician Chief Complaint: EVENTS AND NOTES REVIEWED LEFT HIP FRACTURE BEDSIDE - Current Medication List Current Medications: Active Medications Albuterol Sulfate (Ventolin 0.083% Nebulizer Soln -) 1 amp NEB Q4H PRN PRN Reason: SHORT OF BREATH/WHEEZING Budesonide/Formoterol Fumarate (Symbicort 160/4.5mcg -) 2 puff IH BID [facility] Last Admin: 02/01/18 09:26 Dose: 2 puff Diazepam (Valium -) 2 mg PO TID PRN PRN Reason: ANXIETY Sodium Chloride (Normal Saline -) 1,000 mls @ 75 mls/hr IV ASDIR [facility] Last Admin: 02/01/18 04:15 Dose: 75 mls/hr Levothyroxine Sodium (Synthroid -) 112 mcg PO DAILY@0700 [facility] Last Admin: 02/01/18 06:16 Dose: 112 mcg Methylprednisolone Sodium Succinate (Solu-Medrol -) 20 mg IVPUSH Q8H-IV [facility] Last Admin: 02/01/18 14:55 Dose: 20 mg Morphine Sulfate (Morphine Sulfate) 2 mg IVPUSH Q4H PRN PRN Reason: PAIN LEVEL 6-10 Last Admin: 02/01/18 14:54 Dose: 2 mg Ondansetron HCl (Zofran Injection) 4 mg IVPUSH Q6H PRN PRN Reason: NAUSEA Polyethylene Glycol (Miralax (For Daily Use) -) 17 gm PO DAILY [facility] Last Admin: 02/01/18 09:13 Dose: Not Given - Objective Vital Signs: Vital Signs Temperature 98.0 F 02/01/18 15:17 Pulse Rate 88 02/01/18 15:17 Respiratory Rate 20 02/01/18 15:17 Blood Pressure 162/80 02/01/18 15:17 O2 Sat by Pulse Oximetry (%) 95 02/01/18 09:00 Constitutional: Yes: Mild Distress Eyes: Yes: WNL HENT: Yes: WNL Neck: Yes: WNL Cardiovascular: Yes: WNL Respiratory: Yes: Diminished, On Nasal O2 Gastrointestinal: Yes: WNL Genitourinary: Yes: Other Musculoskeletal: Yes: Muscle Pain, Muscle Weakness Extremities: Yes: Other Edema: Yes Peripheral Pulses WNL: Yes Integumentary: Yes: Bruising, Rash Wound/Incision: Yes: Clean/Dry Neurological: Yes: Other ...Motor Strength: LLE Psychiatric: Yes: WNL Labs: CBC, BMP 02/01/18 07:30 02/01/18 07:30 INR, PTT INR 1.04 (0.82-1.09) 01/31/18 23:45 Problem List - Problems (1) Hearing loss Code(s): H91.90 - UNSPECIFIED HEARING LOSS, UNSPECIFIED EAR (2) Hip fracture Code(s): S72.009A - FRACTURE OF UNSP PART OF NECK OF UNSP FEMUR, INIT (3) Anemia Code(s): D64.9 - ANEMIA, UNSPECIFIED Qualifiers: Anemia type: due to other cause Other causes of anemia: due to antineoplastic chemotherapy Qualified Code(s): D64.81 - Anemia due to antineoplastic chemotherapy (4) COPD (chronic obstructive pulmonary disease) Code(s): J44.9 - CHRONIC OBSTRUCTIVE PULMONARY DISEASE, UNSPECIFIED Qualifiers: COPD type: COPD with acute lower respiratory infection Qualified Code(s): J44.0 - Chronic obstructive pulmonary disease with acute lower respiratory infection (5) Lung cancer Code(s): C34.90 - MALIGNANT NEOPLASM OF UNSP PART OF UNSP BRONCHUS OR LUNG Assessment/Plan WILL MEDICALLY CLEAR FOR SURGERY CARDIO/PULMO EVAL STEROIDS IV CT SCAN SHOWS FRACTURE WITHOUT METASTATIC DISEASE ONCOLOGY F/U PAIN CONTROL WILL D/W ANESTHESIOLOGY IF THEY CAN USE A NERVE BLOCK VS GENERAL ANESTHESIA
--- NOTE | 2018-02-01 19:48 | CON.CARD ---
Consult - History of Present Illness History of Present Illness: This is an 82 year old female with a past medical history significant for COPD 4L oxygen dependent, HTN, HLD who presented to the ED after falling in her kitchen. States she tripped and fell. Denies dizziness, palpitations, chest pain or presyncopal symptoms. Pt reports pain in her leg persistent despite receiving morphine. ROS limited by extreme NEWTOK despite hearing aid being in place. answered for patient most of the time. 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 No: Alzheimer's Cardio/Vascular: Yes: HTN Pulmonary: Yes: Cancer (adenocarcinoma s/p RT and chemo), COPD (home oxygen) Gastrointestinal: Yes: Diverticulitis (02/2015), Diverticulosis Endocrine: Yes: Hyperthyroidism - Past Surgical History Past Surgical History: Yes: Hysterectomy Additional Surgical History: VAT WEDGE RESECTION - Alcohol/Substance Use Hx Alcohol Use: No - Smoking History Smoking history: Former smoker Have you smoked in the past 12 months: No Aproximately how many cigarettes per day: 0 If you are a former smoker, when did you quit?: 40 yrs ago - Social History Usual Living Arrangement: With Spouse ADL: Independent History of Recent Travel: No Home Medications - Allergies Allergies/Adverse Reactions: Allergies Allergy/AdvReac Type Severity Reaction Status Date / Time levofloxacin [From Levaquin] Allergy Mild Itching Verified 12/09/17 10:50 Penicillins Allergy Mild Hives Verified 12/09/17 10:50 - Home Medications Home Medications: Ambulatory Orders Acetaminophen [Tylenol .Regular Strength -] 650 mg PO Q6H PRN #0 tablet Albuterol 0.083% Nebulizer Yaima [Ventolin 0.083% Nebulizer Soln -] 1 amp NEB Q4H PRN #0 amp 07/06/16 Diazepam 2 mg PO TID PRN 12/09/17 Fluticasone/Salmeterol [Advair 250-50 Diskus] 1 each IH BID 02/01/18 Levothyroxine [Synthroid -] 112 mcg PO DAILY 02/01/18 Review of Systems - Review of Systems Constitutional: reports: No Symptoms Eyes: reports: No Symptoms HENT: reports: No Symptoms Neck: reports: No Symptoms Cardiovascular: reports: No Symptoms Gastrointestinal: reports: No Symptoms Genitourinary: reports: No Symptoms Breasts: reports: No Symptoms Reported Musculoskeletal: reports: No Symptoms Integumentary: reports: No Symptoms Neurological: reports: No Symptoms Endocrine: reports: No Symptoms Hematology/Lymphatic: reports: No Symptoms Psychiatric: reports: No Symptoms Vital Signs: Vital Signs Temperature 98.0 F 02/01/18 15:17 Pulse Rate 88 02/01/18 15:17 Respiratory Rate 20 02/01/18 15:17 Blood Pressure 162/80 02/01/18 15:17 O2 Sat by Pulse Oximetry (%) 95 02/01/18 09:00 Constitutional: Yes: Well Nourished, No Distress, Calm Eyes: Yes: WNL, Conjunctiva Clear, EOM Intact HENT: Yes: WNL, Atraumatic, Normocephalic Neck: Yes: WNL, Supple, Trachea Midline Respiratory: Yes: WNL, Regular, CTA Bilaterally Gastrointestinal: Yes: WNL, Normal Bowel Sounds Renal/: Yes: WNL Cardiovascular: Yes: WNL, Regular Rate and Rhythm Musculoskeletal: Yes: WNL Extremities: Yes: External Rotation Integumentary: Yes: WNL Neurological: Yes: WNL, Alert, Oriented ...Motor Strength: WNL Psychiatric: Yes: WNL, Alert, Oriented - Other Data Labs, Other Data: CBC, BMP 02/01/18 07:30 02/01/18 07:30 INR, PTT INR 1.04 (0.82-1.09) 01/31/18 23:45 Imaging - Results Chest X-ray: Image Reviewed (no i/e) EKG: Image Reviewed (sr rep abn) Problem List - Problems (1) Hearing loss Code(s): H91.90 - UNSPECIFIED HEARING LOSS, UNSPECIFIED EAR (2) Hip fracture Code(s): S72.009A - FRACTURE OF UNSP PART OF NECK OF UNSP FEMUR, INIT (3) Acute kidney injury Code(s): N17.9 - ACUTE KIDNEY FAILURE, UNSPECIFIED (4) Acute renal failure Code(s): N17.9 - ACUTE KIDNEY FAILURE, UNSPECIFIED (5) Anemia Code(s): D64.9 - ANEMIA, UNSPECIFIED Qualifiers: Anemia type: due to other cause Other causes of anemia: due to antineoplastic chemotherapy Qualified Code(s): D64.81 - Anemia due to antineoplastic chemotherapy (6) Bandemia Code(s): D72.825 - BANDEMIA (7) COPD (chronic obstructive pulmonary disease) Code(s): J44.9 - CHRONIC OBSTRUCTIVE PULMONARY DISEASE, UNSPECIFIED Qualifiers: COPD type: COPD with acute lower respiratory infection Qualified Code(s): J44.0 - Chronic obstructive pulmonary disease with acute lower respiratory infection (8) COPD exacerbation Code(s): J44.1 - CHRONIC OBSTRUCTIVE PULMONARY DISEASE W (ACUTE) EXACERBATION (9) Chronic hypoxemic respiratory failure Code(s): J96.11 - CHRONIC RESPIRATORY FAILURE WITH HYPOXIA (10) Diverticulitis Code(s): K57.92 - DVTRCLI OF INTEST, PART UNSP, W/O PERF OR ABSCESS W/O BLEED Qualifiers: Diverticulitis site: large intestine Diverticulitis complication: without perforation or abscess (11) Electrolyte abnormality Code(s): E87.8 - OTH DISORDERS OF ELECTROLYTE AND FLUID BALANCE, NEC (12) Fever Code(s): R50.9 - FEVER, UNSPECIFIED Qualifiers: Fever type: unspecified Qualified Code(s): R50.9 - Fever, unspecified (13) Hypothyroid Code(s): E03.9 - HYPOTHYROIDISM, UNSPECIFIED (14) Leukocytosis Code(s): D72.829 - ELEVATED WHITE BLOOD CELL COUNT, UNSPECIFIED Qualifiers: Qualified Code(s): D72.829 - Elevated white blood cell count, unspecified (15) Lung cancer Code(s): C34.90 - MALIGNANT NEOPLASM OF UNSP PART OF UNSP BRONCHUS OR LUNG (16) Pneumonia Code(s): J18.9 - PNEUMONIA, UNSPECIFIED ORGANISM Qualifiers: Pneumonia type: pneumonia due to unspecified organism Qualified Code(s): J18.9 - Pneumonia, unspecified organism (17) Secondary hyperthyroidism Code(s): E05.90 - THYROTOXICOSIS, UNSP WITHOUT THYROTOXIC CRISIS OR STORM (18) Small bowel obstruction Code(s): K56.69 - OTHER INTESTINAL OBSTRUCTION * DO NOT USE * (19) Thrombocytopenia Code(s): D69.6 - THROMBOCYTOPENIA, UNSPECIFIED (20) UTI (urinary tract infection) Code(s): N39.0 - URINARY TRACT INFECTION, SITE NOT SPECIFIED Qualifiers: Urinary tract infection type: site unspecified Hematuria presence: without hematuria Qualified Code(s): N39.0 - Urinary tract infection, site not specified Assessment/Plan hip fx htn hlp copd ?stage III lung ca of theraphy Plan ECHO pulmonary eval will asses the risks of surgery after ECHO done dvt plx coverage for dr. Issa
[2018-02-01] MEDS ORDERED: PT OWN MED DRAWER 7, Y5N ONE (21:26)
--- NOTE | 2018-02-01 23:36 | CONSULT ---
Consult - text type - Consultation Consultation Note: patient seen and examined This is an 82 year old female with a past medical history significant for COPD 4L oxygen dependent, HTN, HLD who presented to the ED after falling in her kitchen. States she tripped and fell. Denies dizziness, palpitations, chest pain or presyncopal symptoms. Pt reports pain in her LLE noted to have Lt. femur fx PAST MEDICAL HISTORY: lung CA h/o resection ? recurrence at suture line 2014--poorly diff adenoca, ALk-/EGFR- s/p chemo and radiation, carbo/alimta, alimta maintenance off chemotherapy and in remission x 1y; COPD (4LNC oxygen dependent); HTN, HLD, hypothyroid, diverticulitis PAST SURGICAL HISTORY: hysterectomy L rotator cuff repair Social History: Smoking: quit 40y ago, prior 1ppd Family History: mother age 96 after hip fx father age 92 brother in late 60s, stomach CA brother , ESRD sister , lung CA, 70s Allergies levofloxacin [From Levaquin] Allergy (Mild, Verified 12/09/17 10:50) Itching Penicillins Allergy (Mild, Verified 12/09/17 10:50) Hives Home Medications 3 Medication Instructions Recorded Acetaminophen [Tylenol .Regular 650 mg PO Q6H PRN #0 tablet 07/06/16 Strength -] Albuterol 0.083% Nebulizer Yaima 1 amp NEB Q4H PRN #0 amp 07/06/16 [Ventolin 0.083% Nebulizer Soln -] Diazepam 2 mg PO TID PRN 12/09/17 Fluticasone/Salmeterol [Advair 1 each IH BID 02/01/18 500-50 Diskus] Levothyroxine [Synthroid -] 112 mcg PO DAILY 02/01/18 also states pt is on welchol and something for BP PHYSICAL EXAMINATION AFVSS GENERAL: Awake, alert, and fully oriented, in no acute distress. NECK: Normal range of motion, supple without lymphadenopathy, JVD, or masses. LUNGS: Breath sounds equal, clear to auscultation bilaterally. No wheezes, and no crackles. No accessory muscle use. HEART: Regular rate and rhythm, normal S1 and S2 without murmur, rub or gallop. ABDOMEN: Soft, nontender, not distended, normoactive bowel sounds, no guarding, no rebound, no masses. No hepatomegaly or splenomegaly. MUSCULOSKELETAL: Normal range of motion at all joints except left hip. No bony deformities or tenderness. L leg shortened and rotated, limited ROM L hip secondary to pain Laboratory Results - last 24 hr 3 01/31/18 01/31/18 01/31/18 23:45 23:45 23:45 WBC 10.9 H D RBC 3.94 Hgb 11.5 Hct 34.0 MCV 86.3 MCH 29.2 MCHC 33.9 RDW 15.1 Plt Count 273 MPV 7.9 Neutrophils % 86.9 H Lymphocytes % 6.7 L D Monocytes % 5.0 Eosinophils % 1.1 Basophils % 0.3 PT with INR 11.80 INR 1.04 PTT (Actin FS) 24.0 L Sodium 140 Potassium 4.1 Chloride 102 Carbon Dioxide 27 Anion Gap 11 BUN 39 H Creatinine 1.0 Creat Clearance w eGFR 53.35 Random Glucose 128 H Calcium 9.7 Total Bilirubin 0.2 AST 17 ALT 20 Alkaline Phosphatase 164 H Total Protein 8.0 Albumin 4.2 Blood Type B POSITIVE Antibody Screen Negative ECG Sinus rhythm with marked sinus arrhythmia vent rate 80, QTC [address]/T wave changes Radiology Reports L hip-official read pending, obvious left hip fracture ASSESSMENT/PLAN: 82 y/o patient with h/o lung cancer, h/o?? RLLobectomy--h/o recurrence in ? 2014 at suture line poorly diff. adenoca, EGFR-neg., ALK-neg. s/p carbo/alimta, s/p RT, alimta maintenance? Off therapy, in presumed remission for > 1yr. now Comes in s/p fall with lt. femur neck fx No e/o pathologic fx on CT scan Patient with poor pulmonary reserve for port flush discussed with patient/ at bedside
[2018-02-02] MEDS: methylPREDNISolone NA SUCC 40 MG/1 ML VIAL IVPUSH SCH ×3 (01:16→17:07)
[2018-02-02] MEDS: morphine SULFATE 4 MG/ML VIAL IVPUSH PRN ×2 (04:05→21:03)
[2018-02-02] MEDS: SODIUM CHLORIDE 1,000 ML IV SCH ×2 (04:06→21:02)
[2018-02-02] MEDS: LEVOTHYROXINE NA 112 MCG TABLET (FP) PO SCH (06:11)
--- NOTE | 2018-02-02 08:58 | PN ---
Progress Note, Physician History of Present Illness: This is an 82 year old female with a past medical history significant for COPD 4L oxygen dependent, HTN, HLD who presented to the ED after falling in her kitchen. States she tripped and fell. Denies dizziness, palpitations, chest pain or presyncopal symptoms. Pt reports pain in her leg persistent despite receiving morphine. ROS limited by extreme APACHE despite hearing aid being in place. answered for patient most of the time. - Current Medication List Current Medications: Active Medications Albuterol Sulfate (Ventolin 0.083% Nebulizer Soln -) 1 amp NEB Q4H PRN PRN Reason: SHORT OF BREATH/WHEEZING Budesonide/Formoterol Fumarate (Symbicort 160/4.5mcg -) 2 puff IH BID [facility] Last Admin: 02/01/18 22:05 Dose: 2 puff Diazepam (Valium -) 2 mg PO TID PRN PRN Reason: ANXIETY Sodium Chloride (Normal Saline -) 1,000 mls @ 75 mls/hr IV ASDIR [facility] Last Admin: 02/02/18 04:06 Dose: 75 mls/hr Levothyroxine Sodium (Synthroid -) 112 mcg PO DAILY@0700 [facility] Last Admin: 02/02/18 06:11 Dose: 112 mcg Methylprednisolone Sodium Succinate (Solu-Medrol -) 20 mg IVPUSH Q8H-IV [facility] Last Admin: 02/02/18 01:16 Dose: 20 mg Morphine Sulfate (Morphine Sulfate) 2 mg IVPUSH Q4H PRN PRN Reason: PAIN LEVEL 6-10 Last Admin: 02/02/18 04:05 Dose: 2 mg Ondansetron HCl (Zofran Injection) 4 mg IVPUSH Q6H PRN PRN Reason: NAUSEA Polyethylene Glycol (Miralax (For Daily Use) -) 17 gm PO DAILY [facility] Last Admin: 02/01/18 09:13 Dose: Not Given - Objective Vital Signs: Vital Signs Temperature 98.5 F 02/02/18 06:00 Pulse Rate 80 02/02/18 06:00 Respiratory Rate 18 02/02/18 06:00 Blood Pressure 153/80 02/02/18 06:00 O2 Sat by Pulse Oximetry (%) 97 02/01/18 21:00 Eyes: Yes: WNL, Conjunctiva Clear, EOM Intact HENT: Yes: WNL, Atraumatic, Normocephalic Neck: Yes: WNL, Supple, Trachea Midline Cardiovascular: Yes: WNL, Regular Rate and Rhythm Respiratory: Yes: WNL, Regular, CTA Bilaterally Gastrointestinal: Yes: WNL, Normal Bowel Sounds Genitourinary: Yes: WNL Musculoskeletal: Yes: WNL Extremities: Yes: External Rotation Edema: No Integumentary: Yes: WNL Neurological: Yes: WNL, Alert, Oriented ...Motor Strength: WNL Psychiatric: Yes: WNL Labs: CBC, BMP 02/01/18 07:30 02/01/18 07:30 INR, PTT INR 1.04 (0.82-1.09) 01/31/18 23:45 Laboratory Tests 01/31/18 01/31/18 01/31/18 23:45 23:45 23:45 WBC 10.9 H D RBC 3.94 Hgb 11.5 Hct 34.0 MCV 86.3 MCH 29.2 MCHC 33.9 RDW 15.1 Plt Count 273 MPV 7.9 Neutrophils % 86.9 H Lymphocytes % 6.7 L D Monocytes % 5.0 Eosinophils % 1.1 Basophils % 0.3 PT with INR INR PTT (Actin FS) Sodium 140 Potassium 4.1 Chloride 102 Carbon Dioxide 27 Anion Gap 11 BUN 39 H Creatinine 1.0 Creat Clearance w eGFR 53.35 Random Glucose 128 H Calcium 9.7 Phosphorus Magnesium Total Bilirubin 0.2 AST 17 ALT 20 Alkaline Phosphatase 164 H Total Protein 8.0 Albumin 4.2 Blood Type B POSITIVE Antibody Screen Negative 01/31/18 02/01/18 02/01/18 23:45 07:30 07:30 WBC 9.2 RBC 3.49 L Hgb 10.1 L D Hct 30.2 L MCV 86.5 MCH 29.0 MCHC 33.5 RDW 15.1 Plt Count 200 D MPV 7.9 Neutrophils % 81.1 Lymphocytes % 10.2 D Monocytes % 7.0 Eosinophils % 0.8 Basophils % 0.9 PT with INR 11.80 INR 1.04 PTT (Actin FS) 24.0 L Sodium 142 Potassium 4.5 Chloride 107 Carbon Dioxide 28 Anion Gap 7 L BUN 33 H Creatinine 0.7 Creat Clearance w eGFR Random Glucose 123 H Calcium 9.1 Phosphorus 4.5 Magnesium 2.0 Total Bilirubin AST ALT Alkaline Phosphatase Total Protein Albumin Blood Type Antibody Screen Problem List - Problems (1) Hearing loss Code(s): H91.90 - UNSPECIFIED HEARING LOSS, UNSPECIFIED EAR (2) Hip fracture Code(s): S72.009A - FRACTURE OF UNSP PART OF NECK OF UNSP FEMUR, INIT (3) Acute kidney injury Code(s): N17.9 - ACUTE KIDNEY FAILURE, UNSPECIFIED (4) Acute renal failure Code(s): N17.9 - ACUTE KIDNEY FAILURE, UNSPECIFIED (5) Anemia Code(s): D64.9 - ANEMIA, UNSPECIFIED Qualifiers: Anemia type: due to other cause Other causes of anemia: due to antineoplastic chemotherapy Qualified Code(s): D64.81 - Anemia due to antineoplastic chemotherapy (6) Bandemia Code(s): D72.825 - BANDEMIA (7) COPD (chronic obstructive pulmonary disease) Code(s): J44.9 - CHRONIC OBSTRUCTIVE PULMONARY DISEASE, UNSPECIFIED Qualifiers: COPD type: COPD with acute lower respiratory infection Qualified Code(s): J44.0 - Chronic obstructive pulmonary disease with acute lower respiratory infection (8) COPD exacerbation Code(s): J44.1 - CHRONIC OBSTRUCTIVE PULMONARY DISEASE W (ACUTE) EXACERBATION (9) Chronic hypoxemic respiratory failure Code(s): J96.11 - CHRONIC RESPIRATORY FAILURE WITH HYPOXIA (10) Diverticulitis Code(s): K57.92 - DVTRCLI OF INTEST, PART UNSP, W/O PERF OR ABSCESS W/O BLEED Qualifiers: Diverticulitis site: large intestine Diverticulitis complication: without perforation or abscess (11) Electrolyte abnormality Code(s): E87.8 - OTH DISORDERS OF ELECTROLYTE AND FLUID BALANCE, NEC (12) Fever Code(s): R50.9 - FEVER, UNSPECIFIED Qualifiers: Fever type: unspecified Qualified Code(s): R50.9 - Fever, unspecified (13) Hypothyroid Code(s): E03.9 - HYPOTHYROIDISM, UNSPECIFIED (14) Leukocytosis Code(s): D72.829 - ELEVATED WHITE BLOOD CELL COUNT, UNSPECIFIED Qualifiers: Qualified Code(s): D72.829 - Elevated white blood cell count, unspecified (15) Lung cancer Code(s): C34.90 - MALIGNANT NEOPLASM OF UNSP PART OF UNSP BRONCHUS OR LUNG (16) Pneumonia Code(s): J18.9 - PNEUMONIA, UNSPECIFIED ORGANISM Qualifiers: Pneumonia type: pneumonia due to unspecified organism Qualified Code(s): J18.9 - Pneumonia, unspecified organism (17) Secondary hyperthyroidism Code(s): E05.90 - THYROTOXICOSIS, UNSP WITHOUT THYROTOXIC CRISIS OR STORM (18) Small bowel obstruction Code(s): K56.69 - OTHER INTESTINAL OBSTRUCTION * DO NOT USE * (19) Thrombocytopenia Code(s): D69.6 - THROMBOCYTOPENIA, UNSPECIFIED (20) UTI (urinary tract infection) Code(s): N39.0 - URINARY TRACT INFECTION, SITE NOT SPECIFIED Qualifiers: Urinary tract infection type: site unspecified Hematuria presence: without hematuria Qualified Code(s): N39.0 - Urinary tract infection, site not specified Assessment/Plan hip fx htn hlp copd ?stage III lung ca of theraphy Plan ECHO pulmonary eval will asses the risks of surgery after ECHO done dvt plx coverage for dr. Issa
[2018-02-02] MEDS ORDERED: PT OWN MED DRAWER 7, Y5N ONE ×2 (09:49→21:00)
[2018-02-02] MEDS: POLYETHYLENE GLYCOL 3350 119 GM BTL PO SCH (10:00)
[2018-02-02] MEDS: BUDESONIDE/FORMETEROL FUMARATE 160/4.5 mcg INHALER IH SCH ×2 (10:01→21:04)
--- NOTE | 2018-02-02 11:51 | PN ---
Progress Note (short form) - Note Progress Note: PULMONARY AWAKE/ALERT PRESENT VSS/AFEBRILE ANICTERIC DISTANT B/L BREATH SOUNDS S1S2 BS+ LEFT LOWER EXT EXTERNALLY ROTATED LABS/MEDS/NOTES REVIEWED CT LOWER EXT: NO EVIDENCE TO SUSPECT NEOPLASTIC INVOLVEMENT ANGULATED FRACTURE OF LEFT FEMORAL NECK COPD AT BASELINE STARTED ON STRESS DOSES OF STEROIDS ICS/LABA/LAMA/JAMES NO ABSOLUTE CONTRAINDICATION FROM A PULMONARY STANDPOINT FOR HIP REPAIR Ellen DENTON MD Problem List - Problems (1) Hip fracture Code(s): S72.009A - FRACTURE OF UNSP PART OF NECK OF UNSP FEMUR, INIT (2) COPD (chronic obstructive pulmonary disease) Code(s): J44.9 - CHRONIC OBSTRUCTIVE PULMONARY DISEASE, UNSPECIFIED Qualifiers: COPD type: COPD with acute lower respiratory infection Qualified Code(s): J44.0 - Chronic obstructive pulmonary disease with acute lower respiratory infection (3) Chronic hypoxemic respiratory failure Code(s): J96.11 - CHRONIC RESPIRATORY FAILURE WITH HYPOXIA (4) Hypothyroid Code(s): E03.9 - HYPOTHYROIDISM, UNSPECIFIED (5) Lung cancer Code(s): C34.90 - MALIGNANT NEOPLASM OF UNSP PART OF UNSP BRONCHUS OR LUNG
--- NOTE | 2018-02-02 12:39 | PN ---
Progress Note (short form) - Note Progress Note: Pt seen and examined. She is comfortable. Min c/o pain. Case again discussed with pt and . Plan is to do a left hip hemiarthroplasty when cleared by medicine and Pulmonology. NPO after midnight tonight
--- NOTE | 2018-02-02 12:51 | PN ---
Progress Note, Physician Chief Complaint: AWAKE ALERT HEARING LOSS NO NEW CHANGES - Current Medication List Current Medications: Active Medications Albuterol Sulfate (Ventolin 0.083% Nebulizer Soln -) 1 amp NEB Q4H PRN PRN Reason: SHORT OF BREATH/WHEEZING Budesonide/Formoterol Fumarate (Symbicort 160/4.5mcg -) 2 puff IH BID [facility] Last Admin: 02/02/18 10:01 Dose: 2 puff Diazepam (Valium -) 2 mg PO TID PRN PRN Reason: ANXIETY Enoxaparin Sodium (Lovenox -) 70 mg SQ BID [facility] Sodium Chloride (Normal Saline -) 1,000 mls @ 75 mls/hr IV ASDIR [facility] Last Admin: 02/02/18 04:06 Dose: 75 mls/hr Levothyroxine Sodium (Synthroid -) 112 mcg PO DAILY@0700 [facility] Last Admin: 02/02/18 06:11 Dose: 112 mcg Methylprednisolone Sodium Succinate (Solu-Medrol -) 20 mg IVPUSH Q8H-IV [facility] Last Admin: 02/02/18 10:01 Dose: 20 mg Morphine Sulfate (Morphine Sulfate) 2 mg IVPUSH Q4H PRN PRN Reason: PAIN LEVEL 6-10 Last Admin: 02/02/18 04:05 Dose: 2 mg Ondansetron HCl (Zofran Injection) 4 mg IVPUSH Q6H PRN PRN Reason: NAUSEA Polyethylene Glycol (Miralax (For Daily Use) -) 17 gm PO DAILY [facility] Last Admin: 02/02/18 10:00 Dose: 17 gm Tiotropium [place] (Spiriva -) 1 puff IH DAILY [facility] - Objective Vital Signs: Vital Signs Temperature 98.0 F 02/02/18 09:00 Pulse Rate 90 02/02/18 09:00 Respiratory Rate 18 02/02/18 09:00 Blood Pressure 155/80 02/02/18 09:00 O2 Sat by Pulse Oximetry (%) 97 02/02/18 09:00 Constitutional: Yes: Mild Distress Eyes: Yes: WNL HENT: Yes: WNL Neck: Yes: WNL Cardiovascular: Yes: WNL Respiratory: Yes: On Nasal O2, Poor Air Entry Gastrointestinal: Yes: WNL Genitourinary: Yes: WNL Musculoskeletal: Yes: Muscle Weakness Extremities: Yes: Other Peripheral Pulses WNL: No Integumentary: Yes: Rash Wound/Incision: Yes: Clean/Dry Neurological: Yes: WNL ...Motor Strength: LLE, RLE Psychiatric: Yes: WNL Labs: CBC, BMP 02/01/18 07:30 02/01/18 07:30 INR, PTT INR 1.04 (0.82-1.09) 01/31/18 23:45 Problem List - Problems (1) Hearing loss Code(s): H91.90 - UNSPECIFIED HEARING LOSS, UNSPECIFIED EAR (2) Hip fracture Code(s): S72.009A - FRACTURE OF UNSP PART OF NECK OF UNSP FEMUR, INIT (3) Anemia Code(s): D64.9 - ANEMIA, UNSPECIFIED Qualifiers: Anemia type: due to other cause Other causes of anemia: due to antineoplastic chemotherapy (4) COPD (chronic obstructive pulmonary disease) Code(s): J44.9 - CHRONIC OBSTRUCTIVE PULMONARY DISEASE, UNSPECIFIED Qualifiers: COPD type: COPD with acute lower respiratory infection Qualified Code(s): J44.0 - Chronic obstructive pulmonary disease with acute lower respiratory infection (5) Lung cancer Code(s): C34.90 - MALIGNANT NEOPLASM OF UNSP PART OF UNSP BRONCHUS OR LUNG Assessment/Plan DISCUSSED WITH DR ALLEN FROM ANESTHESIA CAN LIKELY HAVE LOCAL BLOCK INSTEAD OF GENERAL ANESTHESIA MEDICALLY CLEARED FOR LEFT HIP HEMIARTHROPLASTY 02 SUPPORT NEBS STEROIDS LOVENOX FOR DVT PROPHYLAXIS
[2018-02-02] MEDS: ENOXAPARIN NA (PORCINE) 80 MG/0.8 ML DISP.SYRIN SQ SCH ×2 (14:01→21:05)
[2018-02-02] MEDS: TIOTROPIUM BROMIDE 18 MCG CAPSULES IH SCH (14:26)
[2018-02-03] MEDS: methylPREDNISolone NA SUCC 40 MG/1 ML VIAL IVPUSH SCH ×3 (01:41→21:39)
[2018-02-03] MEDS: SODIUM CHLORIDE 1,000 ML IV SCH ×2 (05:49→19:30)
[2018-02-03] MEDS: LEVOTHYROXINE NA 112 MCG TABLET (FP) PO SCH (06:00)
[2018-02-03 08:18] LABS: BASO % 0.1 % (0-2.0); EOS % 0.1 % (0-4.5); HEMATOCRIT 28.8 % (32.4-45.2); HEMOGLOBIN 9.6 GM/dL (10.7-15.3); LYMPH % 7.2 % (8-40); MCH 28.7 pg (25.7-33.7); MCHC 33.4 g/dl (32.0-36.0); MEAN PLT VOLUME 7.8 fl (7.5-11.1); MONO % 5.1 % (3.8-10.2); NEUT % 87.5 % (42.8-82.8); PLATELET COUNT 221 K/MM3 (134-434); RBC 3.35 M/mm3 (3.60-5.2); RDW 15.5 % (11.6-15.6); WHITE BLOOD COUNT 8.8 K/mm3 (4.0-10.0)
[2018-02-03 08:27] LABS: INR 1.13 (0.82-1.09); PROTHROMBIN TIME (PATIENT) 12.8 SEC (9.98-11.88)
[2018-02-03] MEDS: morphine SULFATE 4 MG/ML VIAL IVPUSH PRN ×2 (08:29→21:39)
[2018-02-03 08:30] LABS: ACTIVATED PTT 27.2 SECONDS (26.9-34.4)
[2018-02-03 08:51] LABS: ALBUMIN 2.9 g/dl (3.4-5.0); ANION GAP 9 (8-16); BLOOD UREA NITROGEN 26 mg/dL (7-18); CHLORIDE 110 mmol/L (98-107); CO2 25 mmol/L (21-32); GLUCOSE,RANDOM 117 mg/dL (74-106); POTASSIUM 4.4 mmol/L (3.5-5.1); SGPT/ALT 14 U/L (12-78); SODIUM 144 mmol/L (136-145)
[2018-02-03 08:53] LABS: ALK PHOS 91 U/L (45-117); BILIRUBIN,TOTAL 0.3 mg/dL (0.2-1.0); CREATININE 0.6 mg/dL (0.55-1.02); SGOT/AST 12 U/L (15-37)
--- NOTE | 2018-02-03 08:56 | PN ---
Progress Note (short form) - Note Progress Note: Ortho OR today for left hip [place]wick a/p NPO OR this afternoon d/w Dr. Iqbal
[2018-02-03] MEDS: POLYETHYLENE GLYCOL 3350 119 GM BTL PO SCH (09:46)
[2018-02-03] MEDS: ENOXAPARIN NA (PORCINE) 80 MG/0.8 ML DISP.SYRIN SQ SCH (09:46)
[2018-02-03] MEDS ORDERED: PT OWN MED DRAWER 7, Y5N ONE (09:48)
[2018-02-03] MEDS: TIOTROPIUM BROMIDE 18 MCG CAPSULES IH SCH (09:52)
[2018-02-03] MEDS: BUDESONIDE/FORMETEROL FUMARATE 160/4.5 mcg INHALER IH SCH ×2 (09:52→21:40)
--- NOTE | 2018-02-03 11:25 | PN ---
Progress Note, Physician Chief Complaint: FALL Left femoral neck fracture without dislocation - Current Medication List Current Medications: Active Medications Albuterol Sulfate (Ventolin 0.083% Nebulizer Soln -) 1 amp NEB Q4H PRN PRN Reason: SHORT OF BREATH/WHEEZING Budesonide/Formoterol Fumarate (Symbicort 160/4.5mcg -) 2 puff IH BID [facility] Last Admin: 02/03/18 09:52 Dose: 2 puff Diazepam (Valium -) 2 mg PO TID PRN PRN Reason: ANXIETY Enoxaparin Sodium (Lovenox -) 70 mg SQ BID [facility] Last Admin: 02/03/18 09:46 Dose: Not Given Sodium Chloride (Normal Saline -) 1,000 mls @ 75 mls/hr IV ASDIR [facility] Last Admin: 02/03/18 05:49 Dose: Not Given Levothyroxine Sodium (Synthroid -) 112 mcg PO DAILY@0700 [facility] Last Admin: 02/03/18 06:00 Dose: 112 mcg Methylprednisolone Sodium Succinate (Solu-Medrol -) 20 mg IVPUSH Q8H-IV [facility] Last Admin: 02/03/18 09:52 Dose: 20 mg Morphine Sulfate (Morphine Sulfate) 2 mg IVPUSH Q4H PRN PRN Reason: PAIN LEVEL 6-10 Last Admin: 02/03/18 08:29 Dose: 2 mg Ondansetron HCl (Zofran Injection) 4 mg IVPUSH Q6H PRN PRN Reason: NAUSEA Polyethylene Glycol (Miralax (For Daily Use) -) 17 gm PO DAILY [facility] Last Admin: 02/03/18 09:46 Dose: Not Given Tiotropium [place] (Spiriva -) 1 puff IH DAILY [facility] Last Admin: 02/03/18 09:52 Dose: 1 puff - Objective Vital Signs: Vital Signs Temperature 98.0 F 02/03/18 08:00 Pulse Rate 67 02/03/18 08:00 Respiratory Rate 20 02/03/18 08:00 Blood Pressure 154/80 02/03/18 08:00 O2 Sat by Pulse Oximetry (%) 98 02/03/18 08:00 Constitutional: Yes: Well Nourished, No Distress, Calm Cardiovascular: Yes: Regular Rate and Rhythm Respiratory: Yes: Regular Gastrointestinal: Yes: Normal Bowel Sounds, Soft Musculoskeletal: Yes: Joint Swelling (left hip) Edema: No Peripheral Pulses WNL: Yes Neurological: Yes: Alert, Oriented Psychiatric: Yes: Alert, Oriented Labs: CBC, BMP 02/03/18 08:07 02/03/18 08:07 INR, PTT INR 1.13 (0.82-1.09) 02/03/18 08:07 Fibrinogen 464.0 mg/dL (238-498) 02/03/18 08:07 Problem List - Problems (1) Hip fracture Assessment/Plan: -Ortho consult appreciated -going to OR today for left hemiarthroplasty -pain management -Physical therapy post op -likely SNF post op Code(s): S72.009A - FRACTURE OF UNSP PART OF NECK OF UNSP FEMUR, INIT (2) Anemia Assessment/Plan: stool OB monitor trend Code(s): D64.9 - ANEMIA, UNSPECIFIED Qualifiers: Anemia type: due to other cause Other causes of anemia: due to antineoplastic chemotherapy Assessment/Plan see problem list
--- NOTE | 2018-02-03 12:18 | PN ---
Progress Note, Physician History of Present Illness: pulmonary alert,nad,c/o LLE pain,-sob - Current Medication List Current Medications: Active Medications Albuterol Sulfate (Ventolin 0.083% Nebulizer Soln -) 1 amp NEB Q4H PRN PRN Reason: SHORT OF BREATH/WHEEZING Budesonide/Formoterol Fumarate (Symbicort 160/4.5mcg -) 2 puff IH BID [facility] Last Admin: 02/03/18 09:52 Dose: 2 puff Diazepam (Valium -) 2 mg PO TID PRN PRN Reason: ANXIETY Enoxaparin Sodium (Lovenox -) 70 mg SQ BID [facility] Last Admin: 02/03/18 09:46 Dose: Not Given Sodium Chloride (Normal Saline -) 1,000 mls @ 75 mls/hr IV ASDIR [facility] Last Admin: 02/03/18 05:49 Dose: Not Given Levothyroxine Sodium (Synthroid -) 112 mcg PO DAILY@0700 [facility] Last Admin: 02/03/18 06:00 Dose: 112 mcg Methylprednisolone Sodium Succinate (Solu-Medrol -) 20 mg IVPUSH Q8H-IV [facility] Last Admin: 02/03/18 09:52 Dose: 20 mg Morphine Sulfate (Morphine Sulfate) 2 mg IVPUSH Q4H PRN PRN Reason: PAIN LEVEL 6-10 Last Admin: 02/03/18 08:29 Dose: 2 mg Ondansetron HCl (Zofran Injection) 4 mg IVPUSH Q6H PRN PRN Reason: NAUSEA Polyethylene Glycol (Miralax (For Daily Use) -) 17 gm PO DAILY [facility] Last Admin: 02/03/18 09:46 Dose: Not Given Tiotropium [place] (Spiriva -) 1 puff IH DAILY [facility] Last Admin: 02/03/18 09:52 Dose: 1 puff - Objective Vital Signs: Vital Signs Temperature 98.0 F 02/03/18 08:00 Pulse Rate 67 02/03/18 08:00 Respiratory Rate 20 02/03/18 08:00 Blood Pressure 154/80 02/03/18 08:00 O2 Sat by Pulse Oximetry (%) 98 02/03/18 08:00 Constitutional: Yes: Well Nourished, Calm Eyes: Yes: WNL HENT: Yes: WNL Neck: Yes: WNL Cardiovascular: Yes: Regular Rate and Rhythm, S1, S2 Respiratory: Yes: Diminished Gastrointestinal: Yes: Normal Bowel Sounds, Soft Extremities: Yes: External Rotation (LLE) Edema: No Labs: CBC, BMP 02/03/18 08:07 02/03/18 08:07 INR, PTT INR 1.13 (0.82-1.09) 02/03/18 08:07 Fibrinogen 464.0 mg/dL (238-498) 02/03/18 08:07 Assessment/Plan Problem List - Problems (1) Hip fracture Code(s): S72.009A - FRACTURE OF UNSP PART OF NECK OF UNSP FEMUR, INIT (2) COPD (chronic obstructive pulmonary disease) Code(s): J44.9 - CHRONIC OBSTRUCTIVE PULMONARY DISEASE, UNSPECIFIED Qualifiers: COPD type: COPD with acute lower respiratory infection Qualified Code(s): J44.0 - Chronic obstructive pulmonary disease with acute lower respiratory infection (3) Chronic hypoxemic respiratory failure Code(s): J96.11 - CHRONIC RESPIRATORY FAILURE WITH HYPOXIA (4) Hypothyroid Code(s): E03.9 - HYPOTHYROIDISM, UNSPECIFIED (5) Lung cancer Code(s): C34.90 - MALIGNANT NEOPLASM OF UNSP PART OF UNSP BRONCHUS OR LUNG IMP COPD O2 DEPENDENT CHRONIC HYPOXEMIC RESPIRATORY FAILURE SECONDARY TO COPD LEFT HIP FX H/O LUNG CA PLAN O2 INHALED BRONCHODILATORS MEDROL ORIF TODAY DVT PROPHYLAXIS INCENTIVE SPIROMETER POST OP DR MCGUIRE
[2018-02-03] MEDS ORDERED: ONDANSETRON 4 MG/2 ML VIAL IVPUSH PRN ×3 (15:01→17:20)
[2018-02-03] MEDS ORDERED: LACTATED RINGERS SOLUTION 1,000 ML IV SCH ×2 (15:15→17:20)
--- NOTE | 2018-02-03 16:29 | PN ---
Progress Note, Physician History of Present Illness: This is an 82 year old female with a past medical history significant for COPD 4L oxygen dependent, HTN, HLD who presented to the ED after falling in her kitchen. States she tripped and fell. Denies dizziness, palpitations, chest pain or presyncopal symptoms. Pt reports pain in her leg persistent despite receiving morphine. ROS limited by extreme [place] despite hearing aid being in place. answered for patient most of the time. - Current Medication List Current Medications: Active Medications Albuterol Sulfate (Ventolin 0.083% Nebulizer Soln -) 1 amp NEB Q4H PRN PRN Reason: SHORT OF BREATH/WHEEZING Aspirin (Asa -) 325 mg PO DAILY@0800 [facility] Budesonide/Formoterol Fumarate (Symbicort 160/4.5mcg -) 2 puff IH BID [facility] Last Admin: 02/03/18 09:52 Dose: 2 puff Diazepam (Valium -) 2 mg PO TID PRN PRN Reason: ANXIETY Enoxaparin Sodium (Lovenox -) 70 mg SQ BID [facility] Last Admin: 02/03/18 09:46 Dose: Not Given Fentanyl (Sublimaze Injection -) 50 mcg IVPUSH Q5M PRN PRN Reason: PAIN-PACU ORDER X 4 DOSES ONLY Fentanyl (Sublimaze Injection -) 25 mcg IVPUSH Q5M PRN PRN Reason: PAIN-PACU ORDER X 4 DOSES ONLY Sodium Chloride (Normal Saline -) 1,000 mls @ 75 mls/hr IV ASDIR [facility] Last Admin: 02/03/18 05:49 Dose: Not Given Lactated Ringer's (Lactated Ringers Solution) 1,000 mls @ 125 mls/hr IV ASDIR [facility] Cefazolin Sodium (Ancef 1 Gm Premixed Ivpb -) 50 mls @ 100 mls/hr IVPB Q8H-IV [facility] Stop: 02/04/18 02:29 Levothyroxine Sodium (Synthroid -) 112 mcg PO DAILY@0700 [facility] Last Admin: 02/03/18 06:00 Dose: 112 mcg Methylprednisolone Sodium Succinate (Solu-Medrol -) 20 mg IVPUSH Q8H-IV [facility] Last Admin: 02/03/18 09:52 Dose: 20 mg Morphine Sulfate (Morphine Sulfate) 2 mg IVPUSH Q4H PRN PRN Reason: PAIN LEVEL 6-10 Last Admin: 02/03/18 08:29 Dose: 2 mg Ondansetron HCl (Zofran Injection) 4 mg IVPUSH Q6H PRN PRN Reason: NAUSEA Ondansetron HCl (Zofran Injection) 4 mg IVPUSH Q6H PRN PRN Reason: NAUSEA AND/OR VOMITING Polyethylene Glycol (Miralax (For Daily Use) -) 17 gm PO DAILY [facility] Last Admin: 02/03/18 09:46 Dose: Not Given Tiotropium [place] (Spiriva -) 1 puff IH DAILY [facility] Last Admin: 02/03/18 09:52 Dose: 1 puff - Objective Vital Signs: Vital Signs Temperature 98.0 F 02/03/18 08:00 Pulse Rate 67 02/03/18 08:00 Respiratory Rate 20 02/03/18 08:00 Blood Pressure 154/80 02/03/18 08:00 O2 Sat by Pulse Oximetry (%) 98 02/03/18 08:00 Eyes: Yes: WNL, Conjunctiva Clear, EOM Intact HENT: Yes: WNL, Atraumatic, Normocephalic Neck: Yes: WNL, Supple, Trachea Midline Cardiovascular: Yes: WNL, Regular Rate and Rhythm Respiratory: Yes: WNL, Regular, CTA Bilaterally Gastrointestinal: Yes: WNL, Normal Bowel Sounds Genitourinary: Yes: WNL Musculoskeletal: Yes: WNL Extremities: Yes: External Rotation (LL ext) Edema: No Integumentary: Yes: WNL Neurological: Yes: WNL, Alert, Oriented ...Motor Strength: WNL Psychiatric: Yes: WNL Labs: CBC, BMP 02/03/18 08:07 02/03/18 08:07 INR, PTT INR 1.13 (0.82-1.09) 02/03/18 08:07 Fibrinogen 464.0 mg/dL (238-498) 02/03/18 08:07 Problem List - Problems (1) Hearing loss Code(s): H91.90 - UNSPECIFIED HEARING LOSS, UNSPECIFIED EAR (2) Hip fracture Code(s): S72.009A - FRACTURE OF UNSP PART OF NECK OF UNSP FEMUR, INIT (3) Acute kidney injury Code(s): N17.9 - ACUTE KIDNEY FAILURE, UNSPECIFIED (4) Acute renal failure Code(s): N17.9 - ACUTE KIDNEY FAILURE, UNSPECIFIED (5) Anemia Code(s): D64.9 - ANEMIA, UNSPECIFIED Qualifiers: Anemia type: due to other cause Other causes of anemia: due to antineoplastic chemotherapy (6) Bandemia Code(s): D72.825 - BANDEMIA (7) COPD (chronic obstructive pulmonary disease) Code(s): J44.9 - CHRONIC OBSTRUCTIVE PULMONARY DISEASE, UNSPECIFIED Qualifiers: COPD type: COPD with acute lower respiratory infection Qualified Code(s): J44.0 - Chronic obstructive pulmonary disease with acute lower respiratory infection (8) COPD exacerbation Code(s): J44.1 - CHRONIC OBSTRUCTIVE PULMONARY DISEASE W (ACUTE) EXACERBATION (9) Chronic hypoxemic respiratory failure Code(s): J96.11 - CHRONIC RESPIRATORY FAILURE WITH HYPOXIA (10) Diverticulitis Code(s): K57.92 - DVTRCLI OF INTEST, PART UNSP, W/O PERF OR ABSCESS W/O BLEED Qualifiers: Diverticulitis site: large intestine Diverticulitis complication: without perforation or abscess (11) Electrolyte abnormality Code(s): E87.8 - OTH DISORDERS OF ELECTROLYTE AND FLUID BALANCE, NEC (12) Fever Code(s): R50.9 - FEVER, UNSPECIFIED Qualifiers: Fever type: unspecified Qualified Code(s): R50.9 - Fever, unspecified (13) Hypothyroid Code(s): E03.9 - HYPOTHYROIDISM, UNSPECIFIED (14) Leukocytosis Code(s): D72.829 - ELEVATED WHITE BLOOD CELL COUNT, UNSPECIFIED (15) Lung cancer Code(s): C34.90 - MALIGNANT NEOPLASM OF UNSP PART OF UNSP BRONCHUS OR LUNG (16) Pneumonia Code(s): J18.9 - PNEUMONIA, UNSPECIFIED ORGANISM Qualifiers: Pneumonia type: pneumonia due to unspecified organism (17) Secondary hyperthyroidism Code(s): E05.90 - THYROTOXICOSIS, UNSP WITHOUT THYROTOXIC CRISIS OR STORM (18) Small bowel obstruction Code(s): K56.69 - OTHER INTESTINAL OBSTRUCTION * DO NOT USE * (19) Thrombocytopenia Code(s): D69.6 - THROMBOCYTOPENIA, UNSPECIFIED (20) UTI (urinary tract infection) Code(s): N39.0 - URINARY TRACT INFECTION, SITE NOT SPECIFIED Qualifiers: Urinary tract infection type: site unspecified Hematuria presence: without hematuria Qualified Code(s): N39.0 - Urinary tract infection, site not specified Assessment/Plan hip fx htn hlp copd ?stage III NSC lung ca in remission ECHO nl ef Plan; Patient is moderate risks for cardiovascular complications (due to comorbidities ) during hip surgery . She is medically optimize for OR dvt plx
[2018-02-03] MEDS ORDERED: VANCOMYCIN 1,000 MG VIAL (RESTRICTED TO ID ONLY) ONE (16:34)
--- NOTE | 2018-02-03 16:53 | OP ---
Operative Note - Note: Operative Date: 02/03/18 ([facility]) Pre-Operative Diagnosis: left femoral neck fx Operation: left hip hemiarthroplasty Post-Operative Diagnosis: Same as Pre-op Surgeon: Angelo Iqbal Gas Examiner: Maciej Miranda Anesthesiologist/GRIT REMOVAL OPERATOR: Lizzy Ibarra Anesthesia: Spinal Specimens Removed: femoral head Estimated Blood Loss (mls): 100 Operative Report Dictated: Yes
[2018-02-03] MEDS ORDERED: ALBUTEROL SO4 0.083% IH SOL 2.5 MG/3 ML VIAL.NEB. NEB PRN (17:20)
[2018-02-03] MEDS ORDERED: diazePAM 2 MG TABLET PO PRN (17:20)
[2018-02-03] MEDS ORDERED: CEFAZOLIN 1 GM/D5W 50 ML IVPB SCH (18:00)
--- NOTE | 2018-02-03 19:37 | SPEC ---
DATE OF OPERATION: 02/03/2018 PREOPERATIVE DIAGNOSIS: Displaced left femoral neck fracture. POSTOPERATIVE DIAGNOSIS: Displaced left femoral neck fracture. PROCEDURE: Left hip hemiarthroplasty. SURGICAL ATTENDING: Clarissa Iqbal MD MACHINE STRAP BUCKLER: JOEY Le ANESTHESIA: Spinal. CLOSURE: A [place] hip system with a No. 8 Accolade II femoral stem, a standard 49 bipolar, No. 1 Vicryl for capsule and fascia, 0 and 2-0 for subcutaneous, 3-0 Monocryl subcuticular, with skin glue for skin. ESTIMATED BLOOD LOSS: 50 mL COMPLICATIONS: None. CONDITION: To recovery room in stable condition. DESCRIPTION OF OPERATIVE PROCEDURE: The patient was taken to the operating room on February 03, 2018. Spinal anesthesia was administered by the anesthesiologist. IV antibiotic was administered prophylactically prior to the case. The patient was placed in the lateral decubitus position with all prominences well padded. The left hip area was prepped and draped in the usual sterile fashion. A 10- to 12-cm longitudinal incision over the posterolateral aspect of the greater trochanter Hemostasis was achieved using Bovie cautery. Sharp dissection was carried down to the level of the fascia, which was opened the entire length of the incision. The fibers of the gluteus yao were spread in the direction of origin, exposing the greater trochanter. A Charnley retractor was placed in this layer and care was taken not to injure the sciatic nerve. The short external rotators were detached from their insertion to the greater trochanter and peeled off the capsule. A T-capsulotomy was then performed with the "T" extending down to the level of the labrum but not cutting the labrum. The femoral head was removed from the acetabulum by use of a corkscrew. It was measured to decide the appropriate size of the acetabular component. A trial reduction with the appropriate size acetabulum achieved good suction fit. Next, our attention was directed to the femur. The proximal femur was prepared using a box chisel, serial broaches and awls until the appropriate size broach achieved a good fit and fill with the appropriate version. Trial reduction with the bipolar revealed excellent stability. It was stable at 90 degrees of flexion and marked adduction. There was a positive hang test, negative telescoping and good stability in external rotation and extension. The trial component was removed. A real Accolade II stem and bipolar were then malleted into place and cold welded together. The hip was then reduced. Range of motion, stability and limb lengths were as described previously. The incision was copiously irrigated with antibiotic. Vancomycin powder was then placed into the hip joint. The capsule was then closed using no. 1 Vicryl suture. The fascia was then closed using no. 1 Vicryl, 0 and 2-0 subcutaneous, and 3-0 Monocryl subcuticular with skin glue for the skin. A sterile pressure dressing was applied. The patient was placed in the supine position with bilateral SCDs and an abduction pillow, and x-rays revealed excellent position of the components. The patient was transferred to recovery in stable condition. There were no complications. Estimated blood loss was 50 mL. CLARISSA IQBAL M.D. [id number]
--- NOTE | 2018-02-04 00:01 | PN ---
Progress Note (short form) - Note Progress Note: Patient seen and examined 02/03/18 s/p left hemiarthroplasty AFVSS Cor: RSR, No murmurs, No gallops Lungs: Clear to P&A ant. Abd: Soft, Normal bowel sounds, No organomegaly Ext:LT. 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 Rebiopsy--poorly diff. adeno/ALK-/EGFR- s/p carbo/alimta and alimta maintenance Off therapy for > 1yr. with last imaging showing no e/o recurrence in 12/29 will get port-a-cath flushed Lt. femur fx --underwent lt. hemiarthroplasty CT not suggestive of pathologic fx stable postopeatively
[2018-02-04] MEDS: morphine SULFATE 4 MG/ML VIAL IVPUSH PRN ×4 (02:13→21:00)
[2018-02-04] MEDS: methylPREDNISolone NA SUCC 40 MG/1 ML VIAL IVPUSH SCH ×3 (02:39→21:02)
[2018-02-04] MEDS ORDERED: CLINDAMYCIN 600MG PREMIX IVPB 600 MG/50 ML BAG IVPB ONE ×2 (04:00)
[2018-02-04] MEDS ORDERED: LEVOTHYROXINE NA 112 MCG TABLET (FP) PO SCH (07:00)
[2018-02-04] MEDS ORDERED: ASPIRIN 325 MG TABLET PO SCH (08:00)
[2018-02-04 08:24] LABS: HEMATOCRIT 26.2 % (32.4-45.2); HEMOGLOBIN 8.8 GM/dL (10.7-15.3); LYMPH % 3.9 % (8-40); MCH 28.8 pg (25.7-33.7); MCHC 33.7 g/dl (32.0-36.0); MEAN CELL VOLUME 85.5 fl (80-96); MEAN PLT VOLUME 7.9 fl (7.5-11.1); MONO % 5.1 % (3.8-10.2); PLATELET COUNT 228 K/MM3 (134-434); RBC 3.06 M/mm3 (3.60-5.2); RDW 15.7 % (11.6-15.6); WHITE BLOOD COUNT 9.5 K/mm3 (4.0-10.0)
[2018-02-04 08:49] LABS: ALBUMIN 2.6 g/dl (3.4-5.0); ANION GAP 6 (8-16); BLOOD UREA NITROGEN 25 mg/dL (7-18); CALCIUM 8.2 mg/dL (8.5-10.1); CHLORIDE 109 mmol/L (98-107); CO2 26 mmol/L (21-32); CREATININE 0.6 mg/dL (0.55-1.02); GLUCOSE,RANDOM 138 mg/dL (74-106); POTASSIUM 4.3 mmol/L (3.5-5.1); SGOT/AST 12 U/L (15-37); SGPT/ALT 15 U/L (12-78); SODIUM 141 mmol/L (136-145)
[2018-02-04 08:58] LABS: ALK PHOS 78 U/L (45-117); BILIRUBIN,TOTAL 0.3 mg/dL (0.2-1.0); TOT PROT 5.3 g/dl (6.4-8.2)
--- NOTE | 2018-02-04 08:59 | PN ---
Progress Note (short form) - Note Progress Note: POD #1 - s/p left hemiarthroplasty under spinal anesthesia. VSS. Pt. doing well , resting comfortably in bed. No complaints. No apparent anesthetic complications noted. Continue current care.
[2018-02-04] MEDS ORDERED: PT OWN MED DRAWER 7, Y5N ONE (09:51)
[2018-02-04] MEDS: ASPIRIN 325 MG TABLET PO SCH (09:58)
[2018-02-04] MEDS: BUDESONIDE/FORMETEROL FUMARATE 160/4.5 mcg INHALER IH SCH ×2 (09:59→22:40)
[2018-02-04] MEDS: TIOTROPIUM BROMIDE 18 MCG CAPSULES IH SCH (09:59)
[2018-02-04] MEDS: POLYETHYLENE GLYCOL 3350 119 GM BTL PO SCH (10:09)
--- NOTE | 2018-02-04 10:09 | PN ---
Progress Note, Physician History of Present Illness: This is an 82 year old female with a past medical history significant for COPD 4L oxygen dependent, HTN, HLD who presented to the ED after falling in her kitchen. States she tripped and fell. Denies dizziness, palpitations, chest pain or presyncopal symptoms. Pt reports pain in her leg persistent despite receiving morphine. ROS limited by extreme HOPI despite hearing aid being in place. answered for patient most of the time. - Current Medication List Current Medications: Active Medications Albuterol Sulfate (Ventolin 0.083% Nebulizer Soln -) 1 amp NEB Q4H PRN PRN Reason: SHORT OF BREATH/WHEEZING Aspirin (Asa -) 325 mg PO DAILY@0800 [facility] Last Admin: 02/04/18 09:58 Dose: 325 mg Budesonide/Formoterol Fumarate (Symbicort 160/4.5mcg -) 2 puff IH BID [facility] Last Admin: 02/04/18 09:59 Dose: 2 puff Diazepam (Valium -) 2 mg PO TID PRN PRN Reason: ANXIETY Sodium Chloride (Normal Saline -) 1,000 mls @ 75 mls/hr IV ASDIR [facility] Last Admin: 02/03/18 19:30 Dose: 0 mls Levothyroxine Sodium (Synthroid -) 112 mcg PO DAILY@0700 [facility] Last Admin: 02/04/18 06:25 Dose: 112 mcg Methylprednisolone Sodium Succinate (Solu-Medrol -) 20 mg IVPUSH Q8H-IV [facility] Last Admin: 02/04/18 09:58 Dose: 20 mg Morphine Sulfate (Morphine Sulfate) 2 mg IVPUSH Q4H PRN PRN Reason: PAIN LEVEL 6-10 Last Admin: 02/04/18 07:05 Dose: 2 mg Ondansetron HCl (Zofran Injection) 4 mg IVPUSH Q6H PRN PRN Reason: NAUSEA Polyethylene Glycol (Miralax (For Daily Use) -) 17 gm PO DAILY [facility] Tiotropium [place] (Spiriva -) 1 puff IH DAILY [facility] Last Admin: 02/04/18 09:59 Dose: 1 puff - Objective Vital Signs: Vital Signs Temperature 98.8 F 02/04/18 06:56 Pulse Rate 84 02/04/18 06:56 Respiratory Rate 20 02/04/18 06:56 Blood Pressure 154/90 02/04/18 06:56 O2 Sat by Pulse Oximetry (%) 93 L 02/03/18 21:00 Eyes: Yes: WNL, Conjunctiva Clear, EOM Intact HENT: Yes: WNL, Atraumatic, Normocephalic Neck: Yes: WNL, Supple, Trachea Midline Cardiovascular: Yes: WNL, Regular Rate and Rhythm Respiratory: Yes: WNL, Regular, CTA Bilaterally Gastrointestinal: Yes: WNL, Normal Bowel Sounds Genitourinary: Yes: WNL Musculoskeletal: Yes: WNL Extremities: Yes: WNL Edema: No Integumentary: Yes: WNL Neurological: Yes: WNL, Alert, Oriented ...Motor Strength: WNL Psychiatric: Yes: WNL Labs: CBC, BMP 02/04/18 07:30 02/04/18 07:30 INR, PTT INR 1.13 (0.82-1.09) 02/03/18 08:07 Fibrinogen 464.0 mg/dL (238-498) 02/03/18 08:07 Problem List - Problems (1) Hearing loss Code(s): H91.90 - UNSPECIFIED HEARING LOSS, UNSPECIFIED EAR (2) Hip fracture Code(s): S72.009A - FRACTURE OF UNSP PART OF NECK OF UNSP FEMUR, INIT (3) Acute kidney injury Code(s): N17.9 - ACUTE KIDNEY FAILURE, UNSPECIFIED (4) Acute renal failure Code(s): N17.9 - ACUTE KIDNEY FAILURE, UNSPECIFIED (5) Anemia Code(s): D64.9 - ANEMIA, UNSPECIFIED Qualifiers: Anemia type: due to other cause Other causes of anemia: due to antineoplastic chemotherapy (6) Bandemia Code(s): D72.825 - BANDEMIA (7) COPD (chronic obstructive pulmonary disease) Code(s): J44.9 - CHRONIC OBSTRUCTIVE PULMONARY DISEASE, UNSPECIFIED Qualifiers: COPD type: COPD with acute lower respiratory infection Qualified Code(s): J44.0 - Chronic obstructive pulmonary disease with acute lower respiratory infection (8) COPD exacerbation Code(s): J44.1 - CHRONIC OBSTRUCTIVE PULMONARY DISEASE W (ACUTE) EXACERBATION (9) Chronic hypoxemic respiratory failure Code(s): J96.11 - CHRONIC RESPIRATORY FAILURE WITH HYPOXIA (10) Diverticulitis Code(s): K57.92 - DVTRCLI OF INTEST, PART UNSP, W/O PERF OR ABSCESS W/O BLEED Qualifiers: Diverticulitis site: large intestine Diverticulitis complication: without perforation or abscess (11) Electrolyte abnormality Code(s): E87.8 - OTH DISORDERS OF ELECTROLYTE AND FLUID BALANCE, NEC (12) Fever Code(s): R50.9 - FEVER, UNSPECIFIED Qualifiers: Fever type: unspecified Qualified Code(s): R50.9 - Fever, unspecified (13) Hypothyroid Code(s): E03.9 - HYPOTHYROIDISM, UNSPECIFIED (14) Leukocytosis Code(s): D72.829 - ELEVATED WHITE BLOOD CELL COUNT, UNSPECIFIED (15) Lung cancer Code(s): C34.90 - MALIGNANT NEOPLASM OF UNSP PART OF UNSP BRONCHUS OR LUNG (16) Pneumonia Code(s): J18.9 - PNEUMONIA, UNSPECIFIED ORGANISM Qualifiers: Pneumonia type: pneumonia due to unspecified organism (17) Secondary hyperthyroidism Code(s): E05.90 - THYROTOXICOSIS, UNSP WITHOUT THYROTOXIC CRISIS OR STORM (18) Small bowel obstruction Code(s): K56.69 - OTHER INTESTINAL OBSTRUCTION * DO NOT USE * (19) Thrombocytopenia Code(s): D69.6 - THROMBOCYTOPENIA, UNSPECIFIED (20) UTI (urinary tract infection) Code(s): N39.0 - URINARY TRACT INFECTION, SITE NOT SPECIFIED Qualifiers: Urinary tract infection type: site unspecified Hematuria presence: without hematuria Qualified Code(s): N39.0 - Urinary tract infection, site not specified Assessment/Plan hip fx s/o hemiarthroplasty / spinal anasthesia POD#1 htn hlp copd ?stage III NSC lung ca in remission ECHO nl ef Plan; stable correct anemia dvt plx f/u ekg
--- NOTE | 2018-02-04 11:24 | PN ---
Progress Note, Physician Chief Complaint: FALL Left femoral neck fracture without dislocation History of Present Illness: POD #1 s/p left hemiarthroplasty -doing well, in bed Physical therapy ordered mild anemia, 2/2 to blood loss? iron profile pending seen by hematology hyperthyroid- adjusted levothyroxine- endocrinology consult - Current Medication List Current Medications: Active Medications Albuterol Sulfate (Ventolin 0.083% Nebulizer Soln -) 1 amp NEB Q4H PRN PRN Reason: SHORT OF BREATH/WHEEZING Aspirin (Asa -) 325 mg PO DAILY@0800 [facility] Last Admin: 02/04/18 09:58 Dose: 325 mg Budesonide/Formoterol Fumarate (Symbicort 160/4.5mcg -) 2 puff IH BID [facility] Last Admin: 02/04/18 09:59 Dose: 2 puff Diazepam (Valium -) 2 mg PO TID PRN PRN Reason: ANXIETY Sodium Chloride (Normal Saline -) 1,000 mls @ 75 mls/hr IV ASDIR [facility] Last Admin: 02/03/18 19:30 Dose: 0 mls Levothyroxine Sodium (Synthroid -) 88 mcg PO DAILY@0700 [facility] Methylprednisolone Sodium Succinate (Solu-Medrol -) 20 mg IVPUSH Q8H-IV [facility] Last Admin: 02/04/18 09:58 Dose: 20 mg Morphine Sulfate (Morphine Sulfate) 2 mg IVPUSH Q4H PRN PRN Reason: PAIN LEVEL 6-10 Last Admin: 02/04/18 07:05 Dose: 2 mg Ondansetron HCl (Zofran Injection) 4 mg IVPUSH Q6H PRN PRN Reason: NAUSEA Polyethylene Glycol (Miralax (For Daily Use) -) 17 gm PO DAILY [facility] Last Admin: 02/04/18 10:09 Dose: 17 gm Tiotropium [place] (Spiriva -) 1 puff IH DAILY [facility] Last Admin: 02/04/18 09:59 Dose: 1 puff - Objective Vital Signs: Vital Signs Temperature 98.8 F 02/04/18 06:56 Pulse Rate 84 02/04/18 06:56 Respiratory Rate 20 02/04/18 06:56 Blood Pressure 154/90 02/04/18 06:56 O2 Sat by Pulse Oximetry (%) 93 L 02/03/18 21:00 Constitutional: Yes: Well Nourished, No Distress, Calm Cardiovascular: Yes: Regular Rate and Rhythm Respiratory: Yes: Regular Gastrointestinal: Yes: Normal Bowel Sounds, Soft Musculoskeletal: Yes: Muscle Weakness Edema: No Peripheral Pulses WNL: Yes Neurological: Yes: Alert, Oriented Psychiatric: Yes: Alert, Oriented Labs: CBC, BMP 02/04/18 07:30 02/04/18 07:30 INR, PTT INR 1.13 (0.82-1.09) 02/03/18 08:07 Fibrinogen 464.0 mg/dL (238-498) 02/03/18 08:07 Problem List - Problems (1) Hip fracture Assessment/Plan: -Ortho consult appreciated -POD #1 left hemiarthroplasty -pain management -Physical therapy post op -SNF post op Code(s): S72.009A - FRACTURE OF UNSP PART OF NECK OF UNSP FEMUR, INIT (2) Anemia Assessment/Plan: stool OB monitor trend -iron profile pending -hematology on board Code(s): D64.9 - ANEMIA, UNSPECIFIED Qualifiers: Anemia type: due to other cause Other causes of anemia: due to antineoplastic chemotherapy (3) Hyperthyroidism Assessment/Plan: -adjusted levothyroxine from 112 to 88 mcg -repeat thyroid profile in 4 weeks -endocrinology consult Code(s): E05.90 - THYROTOXICOSIS, UNSP WITHOUT THYROTOXIC CRISIS OR STORM Assessment/Plan see problem list
--- NOTE | 2018-02-04 12:38 | PN ---
Progress Note (short form) - Note Progress Note: Hip pain better. No CP or SOB. No acute events overnight. Intake & Output 02/01/18 02/02/18 02/03/18 02/04/18 23:59 23:59 23:59 23:59 Intake Total 1300 2525 1950 Output Total 900 600 250 Balance 400 1925 1700 Weight 135 lb 3 oz 141 lb 3 oz 137 lb 137 lb 7 oz Last Vital Signs Temp Pulse Resp BP Pulse Ox 98.8 F 84 20 154/90 93 L 02/04/18 06:56 02/04/18 06:56 02/04/18 06:56 02/04/18 06:56 02/03/18 21:00 Active Medications Albuterol Sulfate (Ventolin 0.083% Nebulizer Soln -) 1 amp NEB Q4H PRN PRN Reason: SHORT OF BREATH/WHEEZING Aspirin (Asa -) 325 mg PO DAILY@0800 [facility] Last Admin: 02/04/18 09:58 Dose: 325 mg Budesonide/Formoterol Fumarate (Symbicort 160/4.5mcg -) 2 puff IH BID [facility] Last Admin: 02/04/18 09:59 Dose: 2 puff Diazepam (Valium -) 2 mg PO TID PRN PRN Reason: ANXIETY Sodium Chloride (Normal Saline -) 1,000 mls @ 75 mls/hr IV ASDIR [facility] Last Admin: 02/03/18 19:30 Dose: 0 mls Levothyroxine Sodium (Synthroid -) 88 mcg PO DAILY@0700 [facility] Methylprednisolone Sodium Succinate (Solu-Medrol -) 20 mg IVPUSH Q8H-IV [facility] Last Admin: 02/04/18 09:58 Dose: 20 mg Morphine Sulfate (Morphine Sulfate) 2 mg IVPUSH Q4H PRN PRN Reason: PAIN LEVEL 6-10 Last Admin: 02/04/18 07:05 Dose: 2 mg Ondansetron HCl (Zofran Injection) 4 mg IVPUSH Q6H PRN PRN Reason: NAUSEA Polyethylene Glycol (Miralax (For Daily Use) -) 17 gm PO DAILY [facility] Last Admin: 02/04/18 10:09 Dose: 17 gm Tiotropium [place] (Spiriva -) 1 puff IH DAILY [facility] Last Admin: 02/04/18 09:59 Dose: 1 puff Constitutional: Yes: NAD Eyes: Yes: WNL HENT: Yes: WNL Neck: Yes: WNL Cardiovascular: Yes: Regular Rate and Rhythm, S1, S2 Respiratory: Yes: Diminished at the bases Gastrointestinal: Yes: Normal Bowel Sounds, Soft Extremities: Yes: (+) PP Edema: No Labs: Laboratory Results - last 24 hr 02/04/18 02/04/18 07:30 07:30 WBC 9.5 RBC 3.06 L Hgb 8.8 L Hct 26.2 L MCV 85.5 MCH 28.8 MCHC 33.7 RDW 15.7 H Plt Count 228 MPV 7.9 Neutrophils % 91.0 H Lymphocytes % 3.9 L D Monocytes % 5.1 Eosinophils % 0.0 D Basophils % 0.0 Sodium 141 Potassium 4.3 Chloride 109 H Carbon Dioxide 26 Anion Gap 6 L BUN 25 H Creatinine 0.6 Creat Clearance w eGFR > 60 Random Glucose 138 H Calcium 8.2 L Ferritin 584.042 H Total Bilirubin 0.3 AST 12 L ALT 15 Alkaline Phosphatase 78 Total Protein 5.3 L Albumin 2.6 L Vitamin B12 430 TSH 0.01 L Free T4 1.70 H Assessment/Plan - Problems (1) Hip fracture Code(s): S72.009A - FRACTURE OF UNSP PART OF NECK OF UNSP FEMUR, INIT (2) COPD (chronic obstructive pulmonary disease) Code(s): J44.9 - CHRONIC OBSTRUCTIVE PULMONARY DISEASE, UNSPECIFIED Qualifiers: COPD type: COPD with acute lower respiratory infection Qualified Code(s): J44.0 - Chronic obstructive pulmonary disease with acute lower respiratory infection (3) Chronic hypoxemic respiratory failure Code(s): J96.11 - CHRONIC RESPIRATORY FAILURE WITH HYPOXIA (4) Hypothyroid Code(s): E03.9 - HYPOTHYROIDISM, UNSPECIFIED (5) Lung cancer Code(s): C34.90 - MALIGNANT NEOPLASM OF UNSP PART OF UNSP BRONCHUS OR LUNG IMP COPD O2 DEPENDENT CHRONIC HYPOXEMIC RESPIRATORY FAILURE SECONDARY TO COPD LEFT HIP FX H/O LUNG CA PLAN O2 NEEDED TO MAINTAIN SATURATION INHALED BRONCHODILATORS TAPE MEDROL TODAY AND CAN LIKELY CHANGE TO PREDNISONE IN AM DVT PROPHYLAXIS INCENTIVE SPIROMETERY SYMBICORT BID SPIRIVA OD DR GIANG
[2018-02-04] MEDS ORDERED: methylPREDNISolone NA SUCC 40 MG/1 ML VIAL IVPUSH SCH (12:45)
--- NOTE | 2018-02-04 13:37 | EKG ---
Test Reason : Blood Pressure : / mmHG Vent. Rate : 074 BPM Atrial Rate : 074 BPM P-R Int : 128 ms QRS Dur : 086 ms QT Int : 370 ms P-R-T Axes : 060 048 051 degrees QTc Int : 410 ms NORMAL SINUS RHYTHM NORMAL ECG WHEN COMPARED WITH ECG OF 01-FEB-2018 00:19, NO SIGNIFICANT CHANGE WAS FOUND Confirmed by MD MATTHEW, GODWIN ([id number]) on 02/04/2018 1:37:29 PM [facility] Confirmed By:GODWIN CASTRO MD
--- NOTE | 2018-02-04 17:03 | PN ---
Progress Note (short form) - Note Progress Note: Pt seen and examined. She is doing vwey well. No real c/o pain. AVSS H/H decreased to 8.8/25.7, but asymptomatic B/L LE are NVI, with good ROM, min pain Overall doing well. Con't P.T. DC planning
--- NOTE | 2018-02-04 20:27 | PN ---
Progress Note (short form) - Note Progress Note: Patient seen and examined 02/03/18 s/p left hemiarthroplasty Last Vital Signs Temp Pulse Resp BP Pulse Ox 98.8 F 94 H 21 143/76 93 L 02/04/18 17:00 02/04/18 17:00 02/04/18 17:00 02/04/18 17:00 02/03/18 21:00 Cor: RSR, No murmurs, No gallops Lungs: Clear to P&A ant. Abd: Soft, Normal bowel sounds, No organomegaly Ext:LT. hemiarthroplasty with intact dressing Abnormal Lab Results 02/04/18 02/04/18 07:30 07:30 RBC 3.06 L Hgb 8.8 L Hct 26.2 L RDW 15.7 H Neutrophils % 91.0 H Lymphocytes % 3.9 L D Chloride 109 H Anion Gap 6 L BUN 25 H Random Glucose 138 H Calcium 8.2 L Ferritin 584.042 H AST 12 L Total Protein 5.3 L Albumin 2.6 L TSH 0.01 L Free T4 1.70 H Active Medications Generic Name Dose Route Start Last Admin Trade Name Freq PRN Reason Stop Dose Admin Albuterol Sulfate 1 amp 02/03/18 17:20 Ventolin 0.083% Nebulizer Soln - NEB Q4H PRN SHORT OF BREATH/WHEEZING Aspirin 325 mg 02/04/18 08:00 02/04/18 09:58 Asa - PO 325 mg DAILY@0800 [facility] Administration Budesonide/Formoterol Fumarate 2 puff 02/03/18 22:00 02/04/18 09:59 Symbicort 160/4.5mcg - IH 2 puff BID [facility] Administration Diazepam 2 mg 02/03/18 17:20 Valium - PO TID PRN ANXIETY Sodium Chloride 1,000 mls @ 75 mls/hr 02/03/18 17:20 02/03/18 19:30 Normal Saline - IV 0 mls ASDIR [facility] Administration Levothyroxine Sodium 88 mcg 02/05/18 07:00 Synthroid - PO DAILY@0700 [facility] Methylprednisolone Sodium Succinate 20 mg 02/04/18 22:00 Solu-Medrol - IVPUSH BID [facility] Morphine Sulfate 2 mg 02/03/18 17:20 02/04/18 16:54 Morphine Sulfate IVPUSH 2 mg Q4H PRN Administration PAIN LEVEL 6-10 Ondansetron HCl 4 mg 02/03/18 17:20 Zofran Injection IVPUSH Q6H PRN NAUSEA Polyethylene Glycol 17 gm 02/04/18 10:00 02/04/18 10:09 Miralax (For Daily Use) - PO 17 gm DAILY [facility] Administration Tiotropium [place] 1 puff 02/04/18 10:00 02/04/18 09:59 Spiriva - IH 1 puff DAILY [facility] Administration A/P 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 Rebiopsy--poorly diff. adeno/ALK-/EGFR- s/p carbo/alimta and alimta maintenance Off therapy for > 1yr. with last imaging showing no e/o recurrence in 12/29 will get port-a-cath flushed Lt. femur fx --underwent lt. hemiarthroplasty CT not suggestive of pathologic fx stable postopeatively Hemoglobin 8.8 monitor continue supportive care
--- NOTE | 2018-02-05 00:50 | CONSULT ---
Consult Consult Specialty:: endocrine Referred by:: phong croft np Reason for Consultation:: hyperthyroidism - History of Present Illness History of Present Illness: 82 year old female with a past medical history significant for COPD 4L oxygen dependent, HTN, HLD who presented to the ED after falling in her kitchen. States she tripped and fell. Denies dizziness, palpitations, chest pain or presyncopal symptoms.has history of thyroid illness treated with synthroid denies tiredness,cold,or weight gain,she has anxiety and mild restlessness - Past Medical History [employer]: Yes: Other ([employer] [place]). No: Alzheimer's Cardio/Vascular: Yes: HTN Pulmonary: Yes: Cancer (adenocarcinoma s/p RT and chemo), COPD (home oxygen) Gastrointestinal: Yes: Diverticulitis (02/2015), Diverticulosis Endocrine: Yes: Hyperthyroidism - Past Surgical History Past Surgical History: Yes: Hysterectomy Additional Surgical History: VAT WEDGE RESECTION - Alcohol/Substance Use Hx Alcohol Use: No - Smoking History Smoking history: Former smoker Have you smoked in the past 12 months: No Aproximately how many cigarettes per day: 0 If you are a former smoker, when did you quit?: 40 yrs ago - Social History Usual Living Arrangement: With Spouse ADL: Independent History of Recent Travel: No Home Medications - Allergies Allergies/Adverse Reactions: Allergies Allergy/AdvReac Type Severity Reaction Status Date / Time levofloxacin [From Levaquin] Allergy Mild Itching Verified 12/09/17 10:50 Penicillins Allergy Mild Hives Verified 12/09/17 10:50 - Home Medications Home Medications: Ambulatory Orders Acetaminophen [Tylenol .Regular Strength -] 650 mg PO Q6H PRN #0 tablet Albuterol 0.083% Nebulizer [place] [Ventolin 0.083% Nebulizer Soln -] 1 amp NEB Q4H PRN #0 amp 07/06/16 Diazepam 2 mg PO TID PRN 12/09/17 Fluticasone/Salmeterol [Advair 250-50 Diskus] 1 each IH BID 02/01/18 Levothyroxine [Synthroid -] 112 mcg PO DAILY 02/01/18 Review of Systems - Review of Systems Constitutional: reports: Weakness Eyes: reports: No Symptoms HENT: reports: No Symptoms Neck: reports: No Symptoms Cardiovascular: reports: Shortness of Breath Respiratory: reports: Exercise Intolerance, SOB on Exertion Gastrointestinal: reports: No Symptoms Musculoskeletal: reports: Joint Swelling, Muscle Pain, Muscle Cramps Neurological: reports: Pre-Existing Deficit ([place]), Unsteady Gait, Weakness Physical Exam Vital Signs: Vital Signs Temperature 97.8 F 02/04/18 20:29 Pulse Rate 95 H 02/04/18 20:29 Respiratory Rate 24 02/04/18 23:16 Blood Pressure 129/67 02/04/18 20:29 O2 Sat by Pulse Oximetry (%) 96 02/04/18 21:00 Constitutional: Yes: Anxious Eyes: Yes: EOM Intact HENT: Yes: Normocephalic Neck: Yes: Trachea Midline Cardiovascular: Yes: Regular Rate and Rhythm Respiratory: Yes: CTA Bilaterally Gastrointestinal: Yes: Normal Bowel Sounds ...Rectal Exam: Yes: Deferred Musculoskeletal: Yes: Muscle Weakness Neurological: Yes: Alert, Oriented Labs: CBC, BMP 02/04/18 07:30 02/04/18 07:30 Problem List - Problems (1) Hearing loss Code(s): H91.90 - UNSPECIFIED HEARING LOSS, UNSPECIFIED EAR (2) Hyperthyroidism Code(s): E05.90 - THYROTOXICOSIS, UNSP WITHOUT THYROTOXIC CRISIS OR STORM (3) Acute renal failure Code(s): N17.9 - ACUTE KIDNEY FAILURE, UNSPECIFIED (4) COPD (chronic obstructive pulmonary disease) Code(s): J44.9 - CHRONIC OBSTRUCTIVE PULMONARY DISEASE, UNSPECIFIED Qualifiers: COPD type: COPD with acute lower respiratory infection Qualified Code(s): J44.0 - Chronic obstructive pulmonary disease with acute lower respiratory infection Assessment/Plan Current Active Problems Hearing loss (Acute) Hip fracture (Acute) Hyperthyroidism (Acute) Abnormal Lab Results 02/04/18 02/04/18 07:30 07:30 RBC 3.06 L Hgb 8.8 L Hct 26.2 L RDW 15.7 H Neutrophils % 91.0 H Lymphocytes % 3.9 L D Chloride 109 H Anion Gap 6 L BUN 25 H Random Glucose 138 H Calcium 8.2 L Ferritin 584.042 H AST 12 L Total Protein 5.3 L Albumin 2.6 L TSH 0.01 L Free T4 1.70 H Laboratory Tests 07/05/16 12/10/17 06:45 06:30 TSH 0.08 L 0.05 L plan: hyperthyroid clinically and biochemically dc synthroid repeat tfts as outpatient will need to improve free t4 and tsh normal prior to restarting synthroid in 2 weeks follow up tft
[2018-02-05] MEDS: SODIUM CHLORIDE 1,000 ML IV SCH (06:24)
[2018-02-05] MEDS ORDERED: LEVOTHYROXINE NA 88 MCG TABLET (FP) PO SCH (07:00)
[2018-02-05 08:11] LABS: SERUM IRON SATURATION 11 % (15-55); TOTAL IRON BINDING CAPACITY 197 ug/dL (250-450); UIBC 176 ug/dL (118-369)
[2018-02-05 08:15] LABS: HEMATOCRIT 21.7 % (32.4-45.2); HEMOGLOBIN 7.3 GM/dL (10.7-15.3); MCH 28.6 pg (25.7-33.7); MCHC 33.6 g/dl (32.0-36.0); MEAN CELL VOLUME 85.2 fl (80-96); MEAN PLT VOLUME 7.9 fl (7.5-11.1); PLATELET COUNT 235 K/MM3 (134-434); RBC 2.55 M/mm3 (3.60-5.2); RDW 15.4 % (11.6-15.6); WHITE BLOOD COUNT 15.9 K/mm3 (4.0-10.0)
[2018-02-05] MEDS ORDERED: PT OWN MED DRAWER 7, Y5N ONE ×2 (09:14→22:07)
[2018-02-05] MEDS: methylPREDNISolone NA SUCC 40 MG/1 ML VIAL IVPUSH SCH (09:41)
[2018-02-05] MEDS: ASPIRIN 325 MG TABLET PO SCH (09:41)
[2018-02-05] MEDS: BUDESONIDE/FORMETEROL FUMARATE 160/4.5 mcg INHALER IH SCH ×2 (09:43→22:33)
[2018-02-05] MEDS: TIOTROPIUM BROMIDE 18 MCG CAPSULES IH SCH (09:44)
[2018-02-05] MEDS: morphine SULFATE 4 MG/ML VIAL IVPUSH PRN (09:44)
[2018-02-05] MEDS: POLYETHYLENE GLYCOL 3350 119 GM BTL PO SCH (09:48)
--- NOTE | 2018-02-05 09:58 | PN ---
Progress Note, Physician Chief Complaint: AWAKE ALERT HEARING LOSS EVENTS AND NOTES REVIEWED BEDSIDE - Current Medication List Current Medications: Active Medications Albuterol Sulfate (Ventolin 0.083% Nebulizer Soln -) 1 amp NEB Q4H PRN PRN Reason: SHORT OF BREATH/WHEEZING Aspirin (Asa -) 325 mg PO DAILY@0800 [facility] Last Admin: 02/05/18 09:41 Dose: 325 mg Budesonide/Formoterol Fumarate (Symbicort 160/4.5mcg -) 2 puff IH BID [facility] Last Admin: 02/05/18 09:43 Dose: 2 puff Diazepam (Valium -) 2 mg PO TID PRN PRN Reason: ANXIETY Sodium Chloride (Normal Saline -) 1,000 mls @ 75 mls/hr IV ASDIR [facility] Last Admin: 02/05/18 06:24 Dose: 75 mls/hr Methylprednisolone Sodium Succinate (Solu-Medrol -) 20 mg IVPUSH BID [facility] Last Admin: 02/05/18 09:41 Dose: 20 mg Morphine Sulfate (Morphine Sulfate) 2 mg IVPUSH Q4H PRN PRN Reason: PAIN LEVEL 6-10 Last Admin: 02/05/18 09:44 Dose: 2 mg Ondansetron HCl (Zofran Injection) 4 mg IVPUSH Q6H PRN PRN Reason: NAUSEA Polyethylene Glycol (Miralax (For Daily Use) -) 17 gm PO DAILY [facility] Last Admin: 02/05/18 09:48 Dose: 17 gm Tiotropium [place] (Spiriva -) 1 puff IH DAILY [facility] Last Admin: 02/05/18 09:44 Dose: 1 puff - Objective Vital Signs: Vital Signs Temperature 97.9 F 02/05/18 06:09 Pulse Rate 89 02/05/18 06:09 Respiratory Rate 20 02/05/18 06:09 Blood Pressure 122/67 02/05/18 06:09 O2 Sat by Pulse Oximetry (%) 96 02/04/18 21:00 Constitutional: Yes: Mild Distress Eyes: Yes: WNL HENT: Yes: Other Neck: Yes: WNL Cardiovascular: Yes: WNL Respiratory: Yes: On Nasal O2, Poor Air Entry Gastrointestinal: Yes: WNL Genitourinary: Yes: Other Musculoskeletal: Yes: Muscle Weakness Extremities: Yes: Other Edema: Yes Edema: LLE: Trace, RLE: Trace Peripheral Pulses WNL: Yes Integumentary: Yes: Venous Stasis Changes, Other Wound/Incision: Yes: Dressing Dry and Intact Neurological: Yes: Pre-Existing Deficit, Unsteady Gait, Weakness ...Motor Strength: LLE Psychiatric: Yes: WNL Labs: CBC, BMP 02/05/18 07:40 02/04/18 07:30 INR, PTT INR 1.13 (0.82-1.09) 02/03/18 08:07 Fibrinogen 464.0 mg/dL (238-498) 02/03/18 08:07 Problem List - Problems (1) Hearing loss Code(s): H91.90 - UNSPECIFIED HEARING LOSS, UNSPECIFIED EAR (2) Hip fracture Code(s): S72.009A - FRACTURE OF UNSP PART OF NECK OF UNSP FEMUR, INIT (3) Anemia Code(s): D64.9 - ANEMIA, UNSPECIFIED Qualifiers: Anemia type: due to other cause Other causes of anemia: due to antineoplastic chemotherapy (4) COPD (chronic obstructive pulmonary disease) Code(s): J44.9 - CHRONIC OBSTRUCTIVE PULMONARY DISEASE, UNSPECIFIED Qualifiers: COPD type: COPD with acute lower respiratory infection Qualified Code(s): J44.0 - Chronic obstructive pulmonary disease with acute lower respiratory infection (5) Lung cancer Code(s): C34.90 - MALIGNANT NEOPLASM OF UNSP PART OF UNSP BRONCHUS OR LUNG Assessment/Plan NEEDS TRANSFUSION PRBC BLOOD LOSS LIKELY FROM HIP SX PT EVAL TO [facility] OR [facility] D/W CHANGE MEDS TO PO
[2018-02-05] MEDS ORDERED: predniSONE 20 MG TABLET (UD) PO SCH (10:00)
[2018-02-05] MEDS ORDERED: ACETAMINOPHEN 325 MG TABLET (FP) PO PRN (10:02)
--- NOTE | 2018-02-05 10:57 | PN ---
Progress Note, Physician History of Present Illness: This is an 82 year old female with a past medical history significant for COPD 4L oxygen dependent, HTN, HLD who presented to the ED after falling in her kitchen. States she tripped and fell. Denies dizziness, palpitations, chest pain or presyncopal symptoms. Pt reports pain in her leg persistent despite receiving morphine. ROS limited by extreme [place] despite hearing aid being in place. answered for patient most of the time. - Current Medication List Current Medications: Active Medications Acetaminophen (Tylenol -) 650 mg PO Q6H PRN PRN Reason: PAIN OR FEVER Albuterol Sulfate (Ventolin 0.083% Nebulizer Soln -) 1 amp NEB Q4H PRN PRN Reason: SHORT OF BREATH/WHEEZING Aspirin (Asa -) 325 mg PO DAILY@0800 [facility] Last Admin: 02/05/18 09:41 Dose: 325 mg Budesonide/Formoterol Fumarate (Symbicort 160/4.5mcg -) 2 puff IH BID [facility] Last Admin: 02/05/18 09:43 Dose: 2 puff Calcitonin (Miacalcin [place] -) 200 units NS DAILY [facility] Diazepam (Valium -) 2 mg PO TID PRN PRN Reason: ANXIETY Ondansetron HCl (Zofran Injection) 4 mg IVPUSH Q6H PRN PRN Reason: NAUSEA Oxycodone HCl (Roxicodone -) 5 mg PO Q6H PRN PRN Reason: PAIN LEVEL 7 - 10 Polyethylene Glycol (Miralax (For Daily Use) -) 17 gm PO DAILY [facility] Last Admin: 02/05/18 09:48 Dose: 17 gm Prednisone (Deltasone -) 40 mg PO DAILY [facility] Tiotropium [place] (Spiriva -) 1 puff IH DAILY [facility] Last Admin: 02/05/18 09:44 Dose: 1 puff - Objective Vital Signs: Vital Signs Temperature 97.9 F 02/05/18 06:09 Pulse Rate 89 02/05/18 06:09 Respiratory Rate 20 02/05/18 06:09 Blood Pressure 122/67 02/05/18 06:09 O2 Sat by Pulse Oximetry (%) 96 02/04/18 21:00 Eyes: Yes: WNL, Conjunctiva Clear, EOM Intact HENT: Yes: WNL, Atraumatic, Normocephalic Neck: Yes: WNL, Supple, Trachea Midline Cardiovascular: Yes: WNL, Regular Rate and Rhythm Respiratory: Yes: WNL, Regular, CTA Bilaterally Gastrointestinal: Yes: WNL, Normal Bowel Sounds Genitourinary: Yes: WNL Musculoskeletal: Yes: WNL Extremities: Yes: WNL Edema: No Integumentary: Yes: WNL Neurological: Yes: WNL, Alert, Oriented ...Motor Strength: WNL Psychiatric: Yes: WNL Labs: CBC, BMP 02/05/18 07:40 02/04/18 07:30 INR, PTT INR 1.13 (0.82-1.09) 02/03/18 08:07 Fibrinogen 464.0 mg/dL (238-498) 02/03/18 08:07 Problem List - Problems (1) Hearing loss Code(s): H91.90 - UNSPECIFIED HEARING LOSS, UNSPECIFIED EAR (2) Hip fracture Code(s): S72.009A - FRACTURE OF UNSP PART OF NECK OF UNSP FEMUR, INIT (3) Acute kidney injury Code(s): N17.9 - ACUTE KIDNEY FAILURE, UNSPECIFIED (4) Acute renal failure Code(s): N17.9 - ACUTE KIDNEY FAILURE, UNSPECIFIED (5) Anemia Code(s): D64.9 - ANEMIA, UNSPECIFIED Qualifiers: Anemia type: due to other cause Other causes of anemia: due to antineoplastic chemotherapy (6) Bandemia Code(s): D72.825 - BANDEMIA (7) COPD (chronic obstructive pulmonary disease) Code(s): J44.9 - CHRONIC OBSTRUCTIVE PULMONARY DISEASE, UNSPECIFIED Qualifiers: COPD type: COPD with acute lower respiratory infection Qualified Code(s): J44.0 - Chronic obstructive pulmonary disease with acute lower respiratory infection (8) COPD exacerbation Code(s): J44.1 - CHRONIC OBSTRUCTIVE PULMONARY DISEASE W (ACUTE) EXACERBATION (9) Chronic hypoxemic respiratory failure Code(s): J96.11 - CHRONIC RESPIRATORY FAILURE WITH HYPOXIA (10) Diverticulitis Code(s): K57.92 - DVTRCLI OF INTEST, PART UNSP, W/O PERF OR ABSCESS W/O BLEED Qualifiers: Diverticulitis site: large intestine Diverticulitis complication: without perforation or abscess (11) Electrolyte abnormality Code(s): E87.8 - OTH DISORDERS OF ELECTROLYTE AND FLUID BALANCE, NEC (12) Fever Code(s): R50.9 - FEVER, UNSPECIFIED Qualifiers: Fever type: unspecified Qualified Code(s): R50.9 - Fever, unspecified (13) Hypothyroid Code(s): E03.9 - HYPOTHYROIDISM, UNSPECIFIED (14) Leukocytosis Code(s): D72.829 - ELEVATED WHITE BLOOD CELL COUNT, UNSPECIFIED (15) Lung cancer Code(s): C34.90 - MALIGNANT NEOPLASM OF UNSP PART OF UNSP BRONCHUS OR LUNG (16) Pneumonia Code(s): J18.9 - PNEUMONIA, UNSPECIFIED ORGANISM Qualifiers: Pneumonia type: pneumonia due to unspecified organism (17) Secondary hyperthyroidism Code(s): E05.90 - THYROTOXICOSIS, UNSP WITHOUT THYROTOXIC CRISIS OR STORM (18) Small bowel obstruction Code(s): K56.69 - OTHER INTESTINAL OBSTRUCTION * DO NOT USE * (19) Thrombocytopenia Code(s): D69.6 - THROMBOCYTOPENIA, UNSPECIFIED (20) UTI (urinary tract infection) Code(s): N39.0 - URINARY TRACT INFECTION, SITE NOT SPECIFIED Qualifiers: Urinary tract infection type: site unspecified Hematuria presence: without hematuria Qualified Code(s): N39.0 - Urinary tract infection, site not specified Assessment/Plan hip fx s/o hemiarthroplasty / spinal anasthesia POD#2 htn hlp copd ?stage III NSC lung ca in remission ECHO nl ef Plan; stable correct anemia consider PRBC transfusion dvt plx f/u ekg
[2018-02-05] MEDS ORDERED: INSULIN (NOVOLOG) ASPART 100 UNITS/ML 10ML VIAL ONE (11:18)
--- NOTE | 2018-02-05 11:24 | PN ---
Progress Note (short form) - Note Progress Note: Ortho Pt seen and examined s/p left hip chadwick pod #2 Selected Entries 02/05/18 06:09 Temperature 97.9 F Pulse Rate 89 Respiratory 20 Rate Blood Pressure 122/67 Laboratory Tests 02/05/18 07:40 WBC 15.9 H D Hgb 7.3 L D Hct 21.7 L D Plt Count 235 dressing c/d/i, equal limb lengths, calf soft, nt nvi a/p will be transfused PT hip precautions dvt ppx pain control d/c planning
--- NOTE | 2018-02-05 13:15 | PN ---
Progress Note, Physician History of Present Illness: pulmonary alert,nad,s/p left hip hemiarthroplasty. pt w/o c/o sob - Current Medication List Current Medications: Active Medications Acetaminophen (Tylenol -) 650 mg PO Q6H PRN PRN Reason: PAIN OR FEVER Albuterol Sulfate (Ventolin 0.083% Nebulizer Soln -) 1 amp NEB Q4H PRN PRN Reason: SHORT OF BREATH/WHEEZING Aspirin (Asa -) 325 mg PO DAILY@0800 [facility] Last Admin: 02/05/18 09:41 Dose: 325 mg Budesonide/Formoterol Fumarate (Symbicort 160/4.5mcg -) 2 puff IH BID [facility] Last Admin: 02/05/18 09:43 Dose: 2 puff Calcitonin (Miacalcin [place] -) 200 units NS DAILY [facility] Diazepam (Valium -) 2 mg PO TID PRN PRN Reason: ANXIETY Ondansetron HCl (Zofran Injection) 4 mg IVPUSH Q6H PRN PRN Reason: NAUSEA Oxycodone HCl (Roxicodone -) 5 mg PO Q6H PRN PRN Reason: PAIN LEVEL 7 - 10 Polyethylene Glycol (Miralax (For Daily Use) -) 17 gm PO DAILY [facility] Last Admin: 02/05/18 09:48 Dose: 17 gm Prednisone (Deltasone -) 40 mg PO DAILY [facility] Tiotropium [place] (Spiriva -) 1 puff IH DAILY [facility] Last Admin: 02/05/18 09:44 Dose: 1 puff - Objective Vital Signs: Vital Signs Temperature 97.9 F 02/05/18 06:09 Pulse Rate 89 02/05/18 06:09 Respiratory Rate 20 02/05/18 06:09 Blood Pressure 122/67 02/05/18 06:09 O2 Sat by Pulse Oximetry (%) 96 02/04/18 21:00 Constitutional: Yes: Well Nourished, Calm Eyes: Yes: WNL HENT: Yes: WNL Neck: Yes: WNL Cardiovascular: Yes: Regular Rate and Rhythm, S1, S2 Respiratory: Yes: Diminished Gastrointestinal: Yes: Normal Bowel Sounds, Soft Extremities: Yes: WNL Edema: No Labs: CBC, BMP 02/05/18 07:40 Assessment/Plan Problem List - Problems (1) Hip fracture Code(s): S72.009A - FRACTURE OF UNSP PART OF NECK OF UNSP FEMUR, INIT (2) COPD (chronic obstructive pulmonary disease) Code(s): J44.9 - CHRONIC OBSTRUCTIVE PULMONARY DISEASE, UNSPECIFIED Qualifiers: COPD type: COPD with acute lower respiratory infection Qualified Code(s): J44.0 - Chronic obstructive pulmonary disease with acute lower respiratory infection (3) Chronic hypoxemic respiratory failure Code(s): J96.11 - CHRONIC RESPIRATORY FAILURE WITH HYPOXIA (4) Hypothyroid Code(s): E03.9 - HYPOTHYROIDISM, UNSPECIFIED (5) Lung cancer Code(s): C34.90 - MALIGNANT NEOPLASM OF UNSP PART OF UNSP BRONCHUS OR LUNG IMP COPD O2 DEPENDENT CHRONIC HYPOXEMIC RESPIRATORY FAILURE SECONDARY TO COPD LEFT HIP FX S/P HEMIARTHROPLASTY H/O LUNG CA ANEMIA PLAN O2 INHALED BRONCHODILATORS DVT PROPHYLAXIS INCENTIVE SPIROMETER MONITOR H+H TRANSFUSE PREDNISONE 10MG DAILY DR MCGUIRE
[2018-02-05] MEDS ORDERED: predniSONE 10 MG TABLET (UD) PO SCH (13:40)
[2018-02-05] MEDS: CALCITONIN - SALMON SYNTHETIC 3.7 ML SPRAY.PUMP NS SCH (13:54)
--- NOTE | 2018-02-05 15:34 | PATH ---
Surgical Pathology Report Patient Name: ALFONZO REYNOSO Med. Rec. #: [id number] /Age/Gender: 1935 (Age: 82) / F Account: [id number] Location: [address] [place] [address]/[facility] Taken: 02/03/2018 Received: 02/04/2018 Reported: 02/05/2018 Physicians: Axel Murguia M.D. Specimen(s) Received FEMORAL HEAD Clinical History Left hip fracture Final Diagnosis FEMORAL HEAD, LEFT, HIP HEMIARTHROPLASTY: BONE WITH INTERSTITIAL HEMORRHAGE CONSISTENT WITH FRACTURE. Electronically Signed Nayeli Hernandez M.D. Gross Description Received in formalin, labeled "left femoral head," is a 4.5 x 4.5 x 3.8 cm. femoral head with no femoral neck attached. The margin of resection is red-brown, jagged and hemorrhagic. No areas of eburnation are identified. The articular surface is polanco-yellow and focally granular. The underlying trabecular bone is yellow, hard and focally hemorrhagic. A call center support representative section is submitted in one cassette, following decalcification. 02/04/2018 [facility]02/04/2018
--- NOTE | 2018-02-05 21:43 | PN ---
Progress Note (short form) - Note Progress Note: Patient seen and examined Some pain s/p surgery No increased breathing difficulty , chest pain or SOB Last Vital Signs Temp Pulse Resp BP Pulse Ox 97.8 F 91 H 20 111/50 97 02/05/18 13:28 02/05/18 13:28 02/05/18 09:00 02/05/18 13:28 02/05/18 09:00 HEENT: MIKA, EOM Intact Oropharynx: No thrush, No mucositis Cor: RSR, No murmurs, No gallops Lungs: diminished breath sounds bilaterally Abd: Soft, Normal bowel sounds, No organomegaly Ext:No significant edema; right thigh swelling post surgery. Wound site clean Skin: No rashes, Integument intact CBC, BMP 02/05/18 07:40 02/04/18 07:30 Current Medications Generic Name Dose Route Start Last Admin Trade Name Freq PRN Reason Stop Dose Admin Acetaminophen 650 mg 02/05/18 10:02 Tylenol - PO Q6H PRN PAIN OR FEVER Albuterol Sulfate 1 amp 02/03/18 17:20 Ventolin 0.083% Nebulizer Soln - NEB Q4H PRN SHORT OF BREATH/WHEEZING Aspirin 325 mg 02/04/18 08:00 02/05/18 09:41 Asa - PO 325 mg DAILY@0800 [facility] Administration Budesonide/Formoterol Fumarate 2 puff 02/03/18 22:00 02/05/18 09:43 Symbicort 160/4.5mcg - IH 2 puff BID [facility] Administration Calcitonin 200 units 02/05/18 11:00 02/05/18 13:54 Miacalcin [place] - NS 1 spray DAILY [facility] Administration Diazepam 2 mg 02/03/18 17:20 Valium - PO TID PRN ANXIETY Ondansetron HCl 4 mg 02/03/18 17:20 Zofran Injection IVPUSH Q6H PRN NAUSEA Oxycodone HCl 5 mg 02/05/18 10:01 Roxicodone - PO Q6H PRN PAIN LEVEL 7 - 10 Polyethylene Glycol 17 gm 02/04/18 10:00 02/05/18 09:48 Miralax (For Daily Use) - PO 17 gm DAILY [facility] Administration Prednisone 10 mg 02/05/18 13:40 Deltasone - PO DAILY [facility] Tiotropium [place] 1 puff 02/04/18 10:00 02/05/18 09:44 Spiriva - IH 1 puff DAILY [facility] Administration Impression: S/P surgery right femur Hx of lung ca COPD Anemia Suggest transfuse packed cells.
[2018-02-05] MEDS: oxyCODONE HCL 5 MG TABLET PO PRN (22:33)
[2018-02-06] MEDS: ASPIRIN 325 MG TABLET PO SCH (08:26)
[2018-02-06 08:45] LABS: HEMATOCRIT 34.3 % (32.4-45.2); HEMOGLOBIN 11.7 GM/dL (10.7-15.3); MCH 29.6 pg (25.7-33.7); MCHC 34.2 g/dl (32.0-36.0); MEAN CELL VOLUME 86.6 fl (80-96); MEAN PLT VOLUME 8.2 fl (7.5-11.1); PLATELET COUNT 190 K/MM3 (134-434); RBC 3.96 M/mm3 (3.60-5.2); RDW 14.9 % (11.6-15.6); WHITE BLOOD COUNT 16.7 K/mm3 (4.0-10.0)
--- NOTE | 2018-02-06 09:16 | PN ---
Progress Note (short form) - Note Progress Note: Ortho Pt seen and examined s/p left hip chadwick pod #3. transfused 2 units yesterday Selected Entries 02/06/18 06:38 Temperature 99.1 F Pulse Rate 73 Respiratory 19 Rate Blood Pressure 123/62 Laboratory Tests 02/06/18 07:00 WBC 16.7 H Hgb 11.7 D Hct 34.3 D Plt Count 190 dressing c/d/i, equal limb lengths, calf soft, nt nvi a/p PT hip precautions dvt ppx pain control d/c planning
[2018-02-06 10:09] VITALS: BP 155/56; PULSE 95; TEMP 98.3
--- NOTE | 2018-02-06 10:37 | PN ---
Progress Note, Physician History of Present Illness: This is an 82 year old female with a past medical history significant for COPD 4L oxygen dependent, HTN, HLD who presented to the ED after falling in her kitchen. States she tripped and fell. Denies dizziness, palpitations, chest pain or presyncopal symptoms. Pt reports pain in her leg persistent despite receiving morphine. ROS limited by extreme [place] despite hearing aid being in place. answered for patient most of the time. - Current Medication List Current Medications: Active Medications Acetaminophen (Tylenol -) 650 mg PO Q6H PRN PRN Reason: PAIN OR FEVER Albuterol Sulfate (Ventolin 0.083% Nebulizer Soln -) 1 amp NEB Q4H PRN PRN Reason: SHORT OF BREATH/WHEEZING Aspirin (Asa -) 325 mg PO DAILY@0800 [facility] Last Admin: 02/06/18 08:26 Dose: 325 mg Budesonide/Formoterol Fumarate (Symbicort 160/4.5mcg -) 2 puff IH BID [facility] Last Admin: 02/05/18 22:33 Dose: 2 puff Calcitonin (Miacalcin [place] -) 200 units NS DAILY [facility] Last Admin: 02/05/18 13:54 Dose: 1 spray Diazepam (Valium -) 2 mg PO TID PRN PRN Reason: ANXIETY Ondansetron HCl (Zofran Injection) 4 mg IVPUSH Q6H PRN PRN Reason: NAUSEA Oxycodone HCl (Roxicodone -) 5 mg PO Q6H PRN PRN Reason: PAIN LEVEL 7 - 10 Last Admin: 02/05/18 22:33 Dose: 5 mg Polyethylene Glycol (Miralax (For Daily Use) -) 17 gm PO DAILY [facility] Last Admin: 02/05/18 09:48 Dose: 17 gm Prednisone (Deltasone -) 10 mg PO DAILY [facility] Tiotropium [place] (Spiriva -) 1 puff IH DAILY [facility] Last Admin: 02/05/18 09:44 Dose: 1 puff - Objective Vital Signs: Vital Signs Temperature 98.3 F 02/06/18 10:00 Pulse Rate 95 H 02/06/18 10:00 Respiratory Rate 17 02/06/18 10:00 Blood Pressure 155/56 02/06/18 10:00 O2 Sat by Pulse Oximetry (%) 97 02/05/18 09:00 Labs: CBC, BMP 02/06/18 07:00 02/04/18 07:30 INR, PTT INR 1.13 (0.82-1.09) 02/03/18 08:07 Fibrinogen 464.0 mg/dL (238-498) 02/03/18 08:07 Problem List - Problems (1) Hearing loss Code(s): H91.90 - UNSPECIFIED HEARING LOSS, UNSPECIFIED EAR (2) Hip fracture Code(s): S72.009A - FRACTURE OF UNSP PART OF NECK OF UNSP FEMUR, INIT (3) Acute kidney injury Code(s): N17.9 - ACUTE KIDNEY FAILURE, UNSPECIFIED (4) Acute renal failure Code(s): N17.9 - ACUTE KIDNEY FAILURE, UNSPECIFIED (5) Anemia Code(s): D64.9 - ANEMIA, UNSPECIFIED Qualifiers: Anemia type: due to other cause Other causes of anemia: due to antineoplastic chemotherapy (6) Bandemia Code(s): D72.825 - BANDEMIA (7) COPD (chronic obstructive pulmonary disease) Code(s): J44.9 - CHRONIC OBSTRUCTIVE PULMONARY DISEASE, UNSPECIFIED Qualifiers: COPD type: COPD with acute lower respiratory infection Qualified Code(s): J44.0 - Chronic obstructive pulmonary disease with acute lower respiratory infection (8) COPD exacerbation Code(s): J44.1 - CHRONIC OBSTRUCTIVE PULMONARY DISEASE W (ACUTE) EXACERBATION (9) Chronic hypoxemic respiratory failure Code(s): J96.11 - CHRONIC RESPIRATORY FAILURE WITH HYPOXIA (10) Diverticulitis Code(s): K57.92 - DVTRCLI OF INTEST, PART UNSP, W/O PERF OR ABSCESS W/O BLEED Qualifiers: Diverticulitis site: large intestine Diverticulitis complication: without perforation or abscess (11) Electrolyte abnormality Code(s): E87.8 - OTH DISORDERS OF ELECTROLYTE AND FLUID BALANCE, NEC (12) Fever Code(s): R50.9 - FEVER, UNSPECIFIED Qualifiers: Fever type: unspecified Qualified Code(s): R50.9 - Fever, unspecified (13) Hypothyroid Code(s): E03.9 - HYPOTHYROIDISM, UNSPECIFIED (14) Leukocytosis Code(s): D72.829 - ELEVATED WHITE BLOOD CELL COUNT, UNSPECIFIED (15) Lung cancer Code(s): C34.90 - MALIGNANT NEOPLASM OF UNSP PART OF UNSP BRONCHUS OR LUNG (16) Pneumonia Code(s): J18.9 - PNEUMONIA, UNSPECIFIED ORGANISM Qualifiers: Pneumonia type: pneumonia due to unspecified organism (17) Secondary hyperthyroidism Code(s): E05.90 - THYROTOXICOSIS, UNSP WITHOUT THYROTOXIC CRISIS OR STORM (18) Small bowel obstruction Code(s): K56.69 - OTHER INTESTINAL OBSTRUCTION * DO NOT USE * (19) Thrombocytopenia Code(s): D69.6 - THROMBOCYTOPENIA, UNSPECIFIED (20) UTI (urinary tract infection) Code(s): N39.0 - URINARY TRACT INFECTION, SITE NOT SPECIFIED Qualifiers: Urinary tract infection type: site unspecified Hematuria presence: without hematuria Qualified Code(s): N39.0 - Urinary tract infection, site not specified Assessment/Plan hip fx s/o hemiarthroplasty / spinal anasthesia POD#3 htn hlp copd ?stage III NSC lung ca in remission ECHO nl ef Plan; stable anemia -corrected dvt plx f/u ekg
--- NOTE | 2018-02-06 10:44 | PN ---
Progress Note, Physician Chief Complaint: FALL Left femoral neck fracture without dislocation History of Present Illness: -doing well received Physical therapy received 2 units of PRBC yesterday iron profile pending seen by hematology hyperthyroid- levothyroxine discontinued- endocrinology consult appreciated - Current Medication List Current Medications: Active Medications Acetaminophen (Tylenol -) 650 mg PO Q6H PRN PRN Reason: PAIN OR FEVER Albuterol Sulfate (Ventolin 0.083% Nebulizer Soln -) 1 amp NEB Q4H PRN PRN Reason: SHORT OF BREATH/WHEEZING Aspirin (Asa -) 325 mg PO DAILY@0800 [facility] Last Admin: 02/06/18 08:26 Dose: 325 mg Budesonide/Formoterol Fumarate (Symbicort 160/4.5mcg -) 2 puff IH BID [facility] Last Admin: 02/05/18 22:33 Dose: 2 puff Calcitonin (Miacalcin [place] -) 200 units NS DAILY [facility] Last Admin: 02/05/18 13:54 Dose: 1 spray Diazepam (Valium -) 2 mg PO TID PRN PRN Reason: ANXIETY Ondansetron HCl (Zofran Injection) 4 mg IVPUSH Q6H PRN PRN Reason: NAUSEA Oxycodone HCl (Roxicodone -) 5 mg PO Q6H PRN PRN Reason: PAIN LEVEL 7 - 10 Last Admin: 02/05/18 22:33 Dose: 5 mg Polyethylene Glycol (Miralax (For Daily Use) -) 17 gm PO DAILY [facility] Last Admin: 02/05/18 09:48 Dose: 17 gm Prednisone (Deltasone -) 10 mg PO DAILY [facility] Tiotropium [place] (Spiriva -) 1 puff IH DAILY [facility] Last Admin: 02/05/18 09:44 Dose: 1 puff - Objective Vital Signs: Vital Signs Temperature 98.3 F 02/06/18 10:00 Pulse Rate 95 H 02/06/18 10:00 Respiratory Rate 17 02/06/18 10:00 Blood Pressure 155/56 02/06/18 10:00 O2 Sat by Pulse Oximetry (%) 97 02/05/18 09:00 Constitutional: Yes: Well Nourished, No Distress, Calm Cardiovascular: Yes: Regular Rate and Rhythm Respiratory: Yes: Regular Gastrointestinal: Yes: Normal Bowel Sounds, Soft Musculoskeletal: Yes: WNL Extremities: Yes: WNL Edema: No Peripheral Pulses WNL: Yes Neurological: Yes: Alert, Oriented Psychiatric: Yes: Alert, Oriented Labs: CBC, BMP 02/06/18 07:00 02/04/18 07:30 INR, PTT INR 1.13 (0.82-1.09) 02/03/18 08:07 Fibrinogen 464.0 mg/dL (238-498) 02/03/18 08:07 Problem List - Problems (1) Hip fracture Assessment/Plan: -Ortho consult appreciated -s/p left hemiarthroplasty -pain management -Physical therapy -[facility] today Code(s): S72.009A - FRACTURE OF UNSP PART OF NECK OF UNSP FEMUR, INIT (2) Anemia Assessment/Plan: stool OB pending monitor trend -iron profile NABIL -hematology on board -received 2 units of PRBC -normalized today -repeat labs at [facility] Code(s): D64.9 - ANEMIA, UNSPECIFIED Qualifiers: Anemia type: due to other cause Other causes of anemia: due to antineoplastic chemotherapy (3) Hyperthyroidism Assessment/Plan: -past TSH all below 0 -levothyroxine discontinued -repeat thyroid profile in 4 weeks at [facility] -endocrinology consult appreciated Code(s): E05.90 - THYROTOXICOSIS, UNSP WITHOUT THYROTOXIC CRISIS OR STORM (4) Leukocytosis Assessment/Plan: 2/2 to tapering steroids Code(s): D72.829 - ELEVATED WHITE BLOOD CELL COUNT, UNSPECIFIED Assessment/Plan see problem list
[2018-02-06] MEDS ORDERED: PT OWN MED DRAWER 7, Y5N ONE (10:48)
[2018-02-06] MEDS: CALCITONIN - SALMON SYNTHETIC 3.7 ML SPRAY.PUMP NS SCH (10:49)
[2018-02-06] MEDS: BUDESONIDE/FORMETEROL FUMARATE 160/4.5 mcg INHALER IH SCH (10:50)
[2018-02-06] MEDS: oxyCODONE HCL 5 MG TABLET PO PRN (10:50)
[2018-02-06] MEDS: TIOTROPIUM BROMIDE 18 MCG CAPSULES IH SCH (10:50)
--- NOTE | 2018-02-06 11:21 | DS ---
Physical Examination Vital Signs: Vital Signs Temperature 98.3 F 02/06/18 10:00 Pulse Rate 95 H 02/06/18 10:00 Respiratory Rate 17 02/06/18 10:00 Blood Pressure 155/56 02/06/18 10:00 O2 Sat by Pulse Oximetry (%) 97 02/05/18 09:00 Constitutional: Yes: Well Nourished, No Distress, Calm Cardiovascular: Yes: Regular Rate and Rhythm Respiratory: Yes: Regular Gastrointestinal: Yes: Normal Bowel Sounds, Soft Musculoskeletal: Yes: WNL Extremities: Yes: WNL Edema: No Peripheral Pulses WNL: Yes Neurological: Yes: Alert, Oriented Psychiatric: Yes: Alert, Oriented Labs: CBC, BMP 02/06/18 07:00 02/04/18 07:30 Discharge Summary Reason For Visit: FRACTURE HIP Current Active Problems Hearing loss (Acute) Hip fracture (Acute) Hyperthyroidism (Acute) Hospital Course: This is an 82 year old female with a past medical history significant for COPD 4L oxygen dependent, HTN, HLD who presented to the ED after falling in her kitchen. States she tripped and fell. Denies dizziness, palpitations, chest pain or presyncopal symptoms. Pt reports pain in her leg persistent despite receiving morphine. ROS limited by extreme [place] despite hearing aid being in place. answered for patient most of the time. Condition: Stable - Instructions Diet, Activity, Other Instructions: CBC/CMP in 1 week TSH/FT4 in 4 weeks Referrals: Aexl Murguia MD [Primary Care Provider] - Disposition: HALF-WAY FACILITY - Home Medications Comprehensive Discharge Medication List: Ambulatory Orders Acetaminophen [Tylenol .Regular Strength -] 650 mg PO Q6H PRN #0 tablet Albuterol 0.083% Nebulizer [place] [Ventolin 0.083% Nebulizer Soln -] 1 amp NEB Q4H PRN #0 amp 07/06/16 Diazepam 2 mg PO TID PRN 12/09/17 Fluticasone/Salmeterol [Advair 250-50 Diskus] 1 each IH BID 02/01/18 Acetaminophen [Tylenol .Regular Strength -] 650 mg PO Q6H PRN tablet 02/06/18 Aspirin [ASA -] 325 mg PO DAILY@0800 tablet 02/06/18 Calcitonin-[place] [Miacalcin [place] -] 200 units NS DAILY spray.pump 02/06/18 Polyethylene Glycol 3350 [Miralax 119 gm Btl -] 17 gm PO DAILY bottle 02/06/18 oxyCODONE HCL [Roxicodone -] 5 mg PO Q6H PRN tablet MDD 4 02/06/18 predniSONE [Deltasone -] 10 mg PO DAILY #7 tablet 02/06/18
--- NOTE | 2018-02-06 11:25 | PN ---
Progress Note (short form) - Note Progress Note: No CP or SOB. No acute events overnight. Intake & Output 02/03/18 02/04/18 02/05/18 02/06/18 23:59 23:59 23:59 23:59 Intake Total 7146 424 7541 450 Output Total 250 200 Balance 2365 884 9614 450 Weight 137 lb 137 lb 7 oz 137 lb 7 oz 137 lb 8 oz Last Vital Signs Temp Pulse Resp BP Pulse Ox 98.3 F 95 H 17 155/56 97 02/06/18 10:00 02/06/18 10:00 02/06/18 10:00 02/06/18 10:00 02/05/18 09:00 Active Medications Acetaminophen (Tylenol -) 650 mg PO Q6H PRN PRN Reason: PAIN OR FEVER Albuterol Sulfate (Ventolin 0.083% Nebulizer Soln -) 1 amp NEB Q4H PRN PRN Reason: SHORT OF BREATH/WHEEZING Aspirin (Asa -) 325 mg PO DAILY@0800 [facility] Last Admin: 02/06/18 08:26 Dose: 325 mg Budesonide/Formoterol Fumarate (Symbicort 160/4.5mcg -) 2 puff IH BID [facility] Last Admin: 02/06/18 10:50 Dose: 2 puff Calcitonin (Miacalcin [place] -) 200 units NS DAILY [facility] Last Admin: 02/06/18 10:49 Dose: 1 spray Diazepam (Valium -) 2 mg PO TID PRN PRN Reason: ANXIETY Ondansetron HCl (Zofran Injection) 4 mg IVPUSH Q6H PRN PRN Reason: NAUSEA Oxycodone HCl (Roxicodone -) 5 mg PO Q6H PRN PRN Reason: PAIN LEVEL 7 - 10 Last Admin: 02/06/18 10:50 Dose: 5 mg Polyethylene Glycol (Miralax (For Daily Use) -) 17 gm PO DAILY [facility] Last Admin: 02/05/18 09:48 Dose: 17 gm Prednisone (Deltasone -) 10 mg PO DAILY [facility] Last Admin: 02/06/18 10:50 Dose: 10 mg Tiotropium [place] (Spiriva -) 1 puff IH DAILY [facility] Last Admin: 02/06/18 10:50 Dose: 1 puff Constitutional: Yes: NAD Eyes: Yes: WNL HENT: Yes: WNL Neck: Yes: WNL Cardiovascular: Yes: Regular Rate and Rhythm, S1, S2 Respiratory: Yes: Diminished at the bases Gastrointestinal: Yes: Normal Bowel Sounds, Soft Extremities: Yes: (+) PP Edema: No Labs: Laboratory Results - last 24 hr 02/03/18 02/06/18 08:07 07:00 WBC 16.7 H RBC 3.96 D Hgb 11.7 D Hct 34.3 D MCV 86.6 MCH 29.6 MCHC 34.2 RDW 14.9 Plt Count 190 MPV 8.2 Blood Type B POSITIVE Antibody Screen Negative Crossmatch See Detail Assessment/Plan - Problems (1) Hip fracture Code(s): S72.009A - FRACTURE OF UNSP PART OF NECK OF UNSP FEMUR, INIT (2) COPD (chronic obstructive pulmonary disease) Code(s): J44.9 - CHRONIC OBSTRUCTIVE PULMONARY DISEASE, UNSPECIFIED Qualifiers: COPD type: COPD with acute lower respiratory infection Qualified Code(s): J44.0 - Chronic obstructive pulmonary disease with acute lower respiratory infection (3) Chronic hypoxemic respiratory failure Code(s): J96.11 - CHRONIC RESPIRATORY FAILURE WITH HYPOXIA (4) Hypothyroid Code(s): E03.9 - HYPOTHYROIDISM, UNSPECIFIED (5) Lung cancer Code(s): C34.90 - MALIGNANT NEOPLASM OF UNSP PART OF UNSP BRONCHUS OR LUNG IMP COPD O2 DEPENDENT CHRONIC HYPOXEMIC RESPIRATORY FAILURE SECONDARY TO COPD LEFT HIP FX H/O LUNG CA PLAN INHALED BRONCHODILATORS PRN DVT PROPHYLAXIS INCENTIVE SPIROMETERY SYMBICORT BID SPIRIVA OD D/C PLANNING DR GIANG
== END 2018-02-06 13:18 | DRG 470 ==
LOC: JER 23:07 → JERBED 02-01 01:40 → J6S 02-01 03:02
PROVIDERS: ADMIT Internal Medicine; ATTEND Family Medicine
PROC: 0SRS0JA Replacement of Left Hip Joint, Femoral Surface with Synthetic Substitute, Uncemented, Open Approach (ICD-10-PCS; principal; 2018-02-03 15:30)
DX: S72.092A Other fracture of head and neck of left femur, initial encounter for closed fracture (principal); J96.11 Chronic respiratory failure with hypoxia; J44.0 Chronic obstructive pulmonary disease with (acute) lower respiratory infection; C34.90 Malignant neoplasm of unspecified part of unspecified bronchus or lung; E78.5 Hyperlipidemia, unspecified; E03.9 Hypothyroidism, unspecified; I10 Essential (primary) hypertension; D64.81 Anemia due to antineoplastic chemotherapy; H91.90 Unspecified hearing loss, unspecified ear; D72.829 Elevated white blood cell count, unspecified; D69.6 Thrombocytopenia, unspecified; R26.81 Unsteadiness on feet; K57.90 Diverticulosis of intestine, part unspecified, without perforation or abscess without bleeding; Z99.81 Dependence on supplemental oxygen; Z87.891 Personal history of nicotine dependence; W01.0XXA Fall on same level from slipping, tripping and stumbling without subsequent striking against object, initial encounter; Z88.0 Allergy status to penicillin; Y93.89 Activity, other specified; Y92.090 Kitchen in other non-institutional residence as the place of occurrence of the external cause
CPT/HCPCS: 36415; 36430; 71045-TC-FY; 72192-TC; 73502-TC-LT-FY; 73523-TC-FY; 73700-TC-RT; 80048; 80053; 82607; 82728; 83540; 83550; 83735; 84100; 84439; 84443; 85025; 85027; 85384; 85610; 85730; 86850; 86900; 86901; 86922; 88305-TC; 88311-TC; 93005; 93010; 93306-TC; 94760; 97116-GP; 97162-GP; 99283-25; J7030; P9038; P9058

== ENCOUNTER 2023-08-20 08:02 | Inpatient (IN) | payer OTHER ==
[2023-08-20] MEDS ORDERED: morphine CARPU-JECT 2 MG/1 ML DISP.SYRIN IVPUSH ONE ×2 (08:31→11:38)
[2023-08-20 09:32] LABS: BASO % 0.6 % (0-2.0); EOS % 1.7 % (0-4.5); HEMATOCRIT 34.4 % (32.4-45.2); HEMOGLOBIN 10.9 GM/dL (10.7-15.3); LYMPH % 11.7 % (8-40); MCH 28.1 pg (25.7-33.7); MCHC 31.7 g/dl (32.0-36.0); MEAN CELL VOLUME 88.6 fl (80-96); MEAN PLT VOLUME 7.4 fl (7.5-11.1); MONO % 5.2 % (3.8-10.2); NEUT % 80.8 % (42.8-82.8); PLATELET COUNT 307 10^3/uL (134-434); RBC 3.88 M/mm3 (3.60-5.2); RDW 14.4 % (11.6-15.6); WHITE BLOOD COUNT 7.6 K/mm3 (4.0-10.0)
[2023-08-20 09:36] LABS: INR 1.05 (0.83-1.09); PROTHROMBIN TIME (PATIENT) 12.2 SEC (9.7-13.0)
[2023-08-20 09:39] LABS: ACTIVATED PTT 28.1 SECONDS (25.2-36.5)
[2023-08-20 10:15] LABS: POTASSIUM 4.2 mmol/L (3.5-5.1)
[2023-08-20 10:17] LABS: BLOOD UREA NITROGEN 23.3 mg/dL (7-18); CALCIUM 9.5 mg/dL (8.5-10.1)
[2023-08-20 10:18] LABS: ALBUMIN 3.6 g/dl (3.4-5.0); MAGNESIUM 2.1 mg/dL (1.8-2.4)
[2023-08-20 10:20] LABS: CREATININE 0.6 mg/dL (0.55-1.3)
[2023-08-20 10:22] LABS: BILIRUBIN,TOTAL 0.4 mg/dL (0.2-1)
[2023-08-20] MEDS ORDERED: ACETAMINOPHEN 325 MG TABLET (FP) PO PRN (12:18)
[2023-08-20] MEDS: LACTATED RINGERS SOLUTION 1,000 ML IV SCH (14:56)
[2023-08-20 21:22] VITALS: BMI 18.8
[2023-08-21] MEDS: LACTATED RINGERS SOLUTION 1,000 ML IV SCH ×2 (06:33→13:53)
[2023-08-21] MEDS ORDERED: LEVOTHYROXINE NA 100 MCG TABLET (FP) PO SCH (07:00)
[2023-08-21] MEDS ORDERED: ACETAMINOPHEN 1000 MG/100 ML BAG IVPB PRN (08:51)
[2023-08-21] MEDS ORDERED: HYDROCHLOROTHIAZIDE 12.5 MG CAPSULE (FP) PO SCH (10:00)
[2023-08-21] MEDS ORDERED: LOSARTAN POTASSIUM 50 MG TABLET PO SCH (10:00)
[2023-08-21 10:24] LABS: HEMATOCRIT 23.8 % (32.4-45.2); MCH 29.3 pg (25.7-33.7); MCHC 33.6 g/dl (32.0-36.0); MEAN CELL VOLUME 87.2 fl (80-96); MEAN PLT VOLUME 7.8 fl (7.5-11.1); PLATELET COUNT 202 10^3/uL (134-434); RBC 2.73 M/mm3 (3.60-5.2); RDW 14.4 % (11.6-15.6); WHITE BLOOD COUNT 8.6 K/mm3 (4.0-10.0)
[2023-08-21 10:52] LABS: POTASSIUM 3.8 mmol/L (3.5-5.1)
[2023-08-21] MEDS ORDERED: FENTANYL CITRATE/PF 50 MCG/ML VIAL ONE ×2 (10:58→12:44)
[2023-08-21] MEDS ORDERED: PROPOFOL 20 ML ONE (11:00)
[2023-08-21] MEDS ORDERED: ONDANSETRON 4 MG/2 ML VIAL IVPUSH PRN ×2 (11:05→12:43)
[2023-08-21] MEDS ORDERED: LACTATED RINGERS SOLUTION 1,000 ML IV SCH ×2 (11:15→12:30)
[2023-08-21] MEDS ORDERED: ceFAZolin SODIUM 1 GM VIAL ONE (11:43)
[2023-08-21] MEDS ORDERED: ceFAZolin SODIUM 1 GM VIAL IVPB ONE (11:45)
[2023-08-21 11:55] LABS: CALCIUM 8.8 mg/dL (8.5-10.1)
[2023-08-21 11:56] LABS: BLOOD UREA NITROGEN 18.7 mg/dL (7-18)
[2023-08-21 11:59] LABS: CREATININE 0.6 mg/dL (0.55-1.3)
[2023-08-21] MEDS ORDERED: ONDANSETRON 4 MG/2 ML VIAL ONE (12:13)
[2023-08-21] MEDS: ACETAMINOPHEN 1000 MG/100 ML BAG IVPB PRN ×2 (15:56→23:16)
[2023-08-21] MEDS ORDERED: CEFAZOLIN 1 GM in DEXTROSE 5%-WATER 100 ML IVPB SCH (18:00)
[2023-08-21] MEDS: CEFAZOLIN 1 GM in DEXTROSE 5%-WATER - 50 ML IVPB SCH (20:33)
[2023-08-22] MEDS: CEFAZOLIN 1 GM in DEXTROSE 5%-WATER - 50 ML IVPB SCH (03:31)
[2023-08-22] MEDS: LACTATED RINGERS SOLUTION 1,000 ML IV SCH (06:15)
[2023-08-22] MEDS ORDERED: LEVOTHYROXINE NA 100 MCG TABLET (FP) PO SCH (07:00)
[2023-08-22] MEDS: ACETAMINOPHEN 1000 MG/100 ML BAG IVPB PRN ×2 (07:48→20:40)
[2023-08-22] MEDS: LOSARTAN POTASSIUM 50 MG TABLET PO SCH (09:19)
[2023-08-22] MEDS: HYDROCHLOROTHIAZIDE 12.5 MG CAPSULE (FP) PO SCH (09:19)
[2023-08-22 09:20] LABS: HEMATOCRIT 22.3 % (32.4-45.2); HEMOGLOBIN 7.4 GM/dL (10.7-15.3); MCH 28.9 pg (25.7-33.7); MCHC 33.4 g/dl (32.0-36.0); MEAN CELL VOLUME 86.5 fl (80-96); MEAN PLT VOLUME 7.8 fl (7.5-11.1); PLATELET COUNT 196 10^3/uL (134-434); RBC 2.58 M/mm3 (3.60-5.2); RDW 14.5 % (11.6-15.6); WHITE BLOOD COUNT 15.4 K/mm3 (4.0-10.0)
[2023-08-22] MEDS: CALCITONIN - SALMON SYNTHETIC 200 UNITS/SPRAY NS SCH (09:29)
[2023-08-22 09:44] LABS: POTASSIUM 3.8 mmol/L (3.5-5.1)
[2023-08-22 09:56] LABS: BLOOD UREA NITROGEN 13.6 mg/dL (7-18); CREATININE 0.7 mg/dL (0.55-1.3)
[2023-08-22 09:57] LABS: CALCIUM 8.4 mg/dL (8.5-10.1)
[2023-08-22 09:58] LABS: BILIRUBIN,TOTAL 0.5 mg/dL (0.2-1); MAGNESIUM 1.6 mg/dL (1.8-2.4); TOT PROT 5.5 g/dl (6.4-8.2)
[2023-08-22] MEDS ORDERED: CALCITONIN - SALMON SYNTHETIC 200 UNITS/SPRAY NS SCH (10:00)
[2023-08-22 10:03] LABS: ALBUMIN 2.6 g/dl (3.4-5.0)
[2023-08-22] MEDS: CYANOCOBALAMIN (VITAMIN B-12) 1000 MCG/1 ML VIAL IM SCH (10:03)
[2023-08-22] MEDS ORDERED: IRON SUCROSE INJECTION 200 MG in SODIUM CHLORIDE 90 ML IVPB ONE (10:08)
[2023-08-22] MEDS ORDERED: ACETAMINOPHEN 1000 MG/100 ML BAG IVPB PRN (20:19)
[2023-08-22] MEDS: POLYETHYLENE GLYCOL (HEALTHYLAX) 3350 17 GM PACKET PO SCH (22:00)
[2023-08-23] MEDS: LACTATED RINGERS SOLUTION 1,000 ML IV SCH ×2 (01:00→22:13)
[2023-08-23] MEDS: LEVOTHYROXINE NA 50 MCG TABLET (FP) PO SCH (06:14)
[2023-08-23] MEDS ORDERED: LEVOTHYROXINE NA 88 MCG TABLET (FP) PO SCH (07:00)
[2023-08-23] MEDS: POLYETHYLENE GLYCOL (HEALTHYLAX) 3350 17 GM PACKET PO SCH ×2 (09:06→21:40)
[2023-08-23] MEDS: HYDROCHLOROTHIAZIDE 12.5 MG CAPSULE (FP) PO SCH (09:06)
[2023-08-23] MEDS: CALCITONIN - SALMON SYNTHETIC 200 UNITS/SPRAY NS SCH (09:06)
[2023-08-23] MEDS: CYANOCOBALAMIN (VITAMIN B-12) 1000 MCG/1 ML VIAL IM SCH (09:06)
[2023-08-23] MEDS: LOSARTAN POTASSIUM 50 MG TABLET PO SCH (09:11)
[2023-08-23] MEDS ORDERED: MAGNESIUM 1GM/D5W - 1 GM/100 ML IVPB IVPB ONE ×2 (09:46→11:00)
[2023-08-23 12:09] LABS: MCH 28.5 pg (25.7-33.7); MCHC 32.1 g/dl (32.0-36.0); MEAN CELL VOLUME 88.8 fl (80-96); MEAN PLT VOLUME 8.2 fl (7.5-11.1); PLATELET COUNT 230 10^3/uL (134-434); RBC 2.36 M/mm3 (3.60-5.2); RDW 14.4 % (11.6-15.6); WHITE BLOOD COUNT 13.3 K/mm3 (4.0-10.0)
[2023-08-23 12:11] LABS: HEMOGLOBIN 6.7 GM/dL (10.7-15.3)
[2023-08-23 12:43] LABS: POTASSIUM 4.2 mmol/L (3.5-5.1)
[2023-08-23 12:51] LABS: BLOOD UREA NITROGEN 15.2 mg/dL (7-18); CALCIUM 8.8 mg/dL (8.5-10.1); MAGNESIUM 1.9 mg/dL (1.8-2.4)
[2023-08-23 12:54] LABS: CREATININE 0.6 mg/dL (0.55-1.3)
[2023-08-23] MEDS: ACETAMINOPHEN 1000 MG/100 ML BAG IVPB PRN (13:39)
[2023-08-24] MEDS: ACETAMINOPHEN 325 MG TABLET (FP) PO PRN ×2 (03:09→09:33)
[2023-08-24] MEDS: LEVOTHYROXINE NA 50 MCG TABLET (FP) PO SCH ×2 (06:40→06:42)
[2023-08-24 09:16] VITALS: BP 154/79; PULSE 83; RESP 16; TEMP 98
[2023-08-24] MEDS: LOSARTAN POTASSIUM 50 MG TABLET PO SCH (09:33)
[2023-08-24] MEDS: HYDROCHLOROTHIAZIDE 12.5 MG CAPSULE (FP) PO SCH (09:33)
[2023-08-24] MEDS: POLYETHYLENE GLYCOL (HEALTHYLAX) 3350 17 GM PACKET PO SCH (09:33)
[2023-08-24] MEDS: CALCITONIN - SALMON SYNTHETIC 200 UNITS/SPRAY NS SCH (09:34)
[2023-08-24] MEDS: CYANOCOBALAMIN (VITAMIN B-12) 1000 MCG/1 ML VIAL IM SCH (09:36)
== END 2023-08-24 14:44 | DRG 481 ==
LOC: JER 08:02 → JERBED 10:52 → J6S 20:05
PROVIDERS: ADMIT Family Medicine; ATTEND Family Medicine
PROC: 0QS604Z Reposition Right Upper Femur with Internal Fixation Device, Open Approach (ICD-10-PCS; principal; 2023-08-21 12:30)
PROC: 30233N1 Transfusion of Nonautologous Red Blood Cells into Peripheral Vein, Percutaneous Approach (ICD-10-PCS; 2023-08-23)
DX: S72.141A Displaced intertrochanteric fracture of right femur, initial encounter for closed fracture (principal); E46 Unspecified protein-calorie malnutrition; Z68.1 Body mass index [BMI] 19.9 or less, adult; I10 Essential (primary) hypertension; E03.9 Hypothyroidism, unspecified; K57.90 Diverticulosis of intestine, part unspecified, without perforation or abscess without bleeding; J44.9 Chronic obstructive pulmonary disease, unspecified; E78.5 Hyperlipidemia, unspecified; H91.93 Unspecified hearing loss, bilateral; F41.9 Anxiety disorder, unspecified; R63.4 Abnormal weight loss; D64.9 Anemia, unspecified; Z99.81 Dependence on supplemental oxygen; W01.0XXA Fall on same level from slipping, tripping and stumbling without subsequent striking against object, initial encounter; Y92.098 Other place in other non-institutional residence as the place of occurrence of the external cause; Y99.9 Unspecified external cause status; Z85.118 Personal history of other malignant neoplasm of bronchus and lung; Z79.52 Long term (current) use of systemic steroids
CPT/HCPCS: 0241U-QW; 36415; 36430; 70450-TC; 71045-TC-FY; 72125-TC; 72170-TC-FY; 73030-TC-RT-FY; 73502-TC-RT-FY; 74177-TC; 76000-TC-FY; 80048; 80053; 83540; 83550; 83735; 84439; 84443; 84484; 85025; 85027; 85610; 85730; 86850; 86900; 86901; 86922; 93005; 93010; 94760; 97116-GP; 97162-GP; 99285-25; C1713; J1756; P9058